=== PATIENT | male | born 1945 | race Caucasian/White ===

== ENCOUNTER 2017-01-02 06:04 | Inpatient (IN) | payer MEDICARE, BC ==
[2016-12-30 15:57] VITALS: BMI 34.9
[~2017-01-02] VITALS: Ht 167.6 cm; Wt 85.5 kg
[2017-01-02] VITALS (23 sets, daily range): BP systolic 119–151; BP diastolic 56–92; PULSE 72–84; RESP 16–22; Ht 167.6 cm; Wt 85.5 kg
[~2017-01-02 06:04] MED LIST: CARB1TAB46 PO; OMEG1CAP73 PO; PRAM0.755 PO; UBID100C24 PO; [UNRECOGNIZED DRUG - CODE] PO; [UNRECOGNIZED DRUG - CODE] PO
[2017-01-02] MEDS ORDERED: CEFAZOLIN 2 GM/50 ML (PMX) 50 ML IVPB ONE (07:30)
[2017-01-02] MEDS ORDERED: LACTATED RINGER'S 1,000 ML IV* SCH (07:30)
[2017-01-02] MEDS ORDERED: NEOSTIGMINE 3 MG/3 ML SYRINGE ONE (08:04)
[2017-01-02] MEDS ORDERED: PROPOFOL 20 ML ONE (08:04)
[2017-01-02] MEDS ORDERED: ROCURONIUM 50 MG INJ ONE (08:04)
[2017-01-02] MEDS ORDERED: GLYCOPYRROLATE 1 MG INJ ONE (08:04)
[2017-01-02] MEDS ORDERED: MIDAZOLAM 1 MG/ML 2 ML INJ ONE (08:05)
[2017-01-02] MEDS ORDERED: LIDOCAINE 2% (SDV) 5 ML INJ ONE (08:05)
[2017-01-02] MEDS ORDERED: FENTAnyl 50 MCG/ML VIAL ONE ×2 (08:05→11:17)
[2017-01-02] MEDS ORDERED: DOCU-159 PO (09:12)
[2017-01-02] MEDS ORDERED: TAMS0.4C2 PO (09:12)
[2017-01-02] MEDS ORDERED: THROMBIN 5000 UNIT VIAL ONE (09:26)
[2017-01-02] MEDS ORDERED: POLYMYXIN/BACITRACIN 1L IRRIG ONE (09:26)
[2017-01-02] MEDS ORDERED: BUPIVACAINE 0.25% (MPF) 10 ML 10 ML VIAL ONE (09:26)
[2017-01-02] MEDS ORDERED: GELATIN SIZE 100 SPONGE ONE (09:26)
--- NOTE | 2017-01-02 09:49 | HPN ---
Date/Time of Note Date/Time of Note DATE: 01/02/17 TIME: 09:49 Interval H&P Admission Note Pt. seen H&P reviewed: No system changes JAGJIT HENRIQUEZ MD Jan 02, 2017 09:49
[2017-01-02] MEDS ORDERED: DEXAMETHASONE 4 MG/ML 1 ML INJ ONE (10:18)
[2017-01-02] MEDS ORDERED: ONDANSETRON 4 MG INJ ONE (10:18)
[2017-01-02] MEDS ORDERED: hydrALAzine 20 MG INJ IV PRN (11:00)
[2017-01-02] MEDS ORDERED: FENTAnyl 50 MCG/ML VIAL IV PRN ×2 (11:00)
[2017-01-02] MEDS ORDERED: MEPERIDINE 25 MG INJ IV PRN (11:00)
[2017-01-02] MEDS ORDERED: ONDANSETRON 4 MG INJ IV PRN ×2 (11:00→13:30)
[2017-01-02] MEDS ORDERED: ATROPINE 1 MG/10 ML SYRINGE IV PRN (11:00)
[2017-01-02] MEDS ORDERED: HYDROmorphONE (0.2 MG/ML) 10ML SYG IV PRN ×3 (11:00)
[2017-01-02] MEDS ORDERED: LABETALOL HCL 20MG INJ IV PRN (11:00)
[2017-01-02] MEDS ORDERED: DIPHENHYDRAMINE 50 MG INJ IV PRN (11:00)
[2017-01-02] MEDS ORDERED: EPHEDrine SULFATE 50 MG/5 ML SYG IV PRN (11:00)
[2017-01-02] MEDS ORDERED: morphine (1 MG/ML) 10ML SYRINGE IV PRN ×3 (11:00)
[2017-01-02] MEDS ORDERED: MIDAZOLAM 1 MG/ML 2 ML INJ IV PRN (11:00)
[2017-01-02] MEDS ORDERED: OXYCODONE/ACETAMINOPHEN (5/325) TAB PO PRN ×2 (11:00)
[2017-01-02] MEDS ORDERED: EPHEDrine SULFATE 50 MG/5 ML SYG ONE (11:04)
[2017-01-02] MEDS ORDERED: FUROSEMIDE 20 MG INJ ONE (12:00)
--- NOTE | 2017-01-02 12:17 | RADRPT ---
PROCEDURE: XR Lumbar Spine one view. CLINICAL INDICATION: Low back pain. Intraoperative. TECHNIQUE: Prone portable cross-table lateral. COMPARISON: 09/23/2013. FINDINGS: For the purposes of this report, the last apparent true disc level is considered to be L5-S1. Based on this, the posterior needle markers are present at L4-5 and upper S1 levels. IMPRESSION: 1. Intraoperative imaging as described above. RPTAT: QQ .Partha Carpenter MD, MD Date Time Electronically viewed and signed by .Partha Carpenter MD, on 01/02/2017 12:16 .R/
--- NOTE | 2017-01-02 12:18 | RADRPT ---
PROCEDURE: XR Lumbar Spine one view. CLINICAL INDICATION: Low back pain. Intraoperative. TECHNIQUE: Prone portable cross-table lateral. COMPARISON: Prior study done earlier the same day. FINDINGS: For the purposes of this report, the last apparent true disc level is considered to be L5-S1. Based on this, the posterior surgical instrument is present overlying the L5-S1 level. IMPRESSION: 1. Intraoperative imaging as described above. RPTAT: QQ .Partha Carpenter MD, MD Date Time Electronically viewed and signed by .Partha Carpenter MD, on 01/02/2017 12:18 .R/
[2017-01-02] MEDS ORDERED: HYDROmorphONE 0.2 MG/ML PCA ONE (13:23)
--- NOTE | 2017-01-02 13:23 | OPPN ---
Date/Time of Note Date/Time of Note DATE: 01/02/17 TIME: 13:16 Operative/Procedure Note Pre-Operative Diagnosis Herniated disc L4-5 on the right Herniated disc L5-S1 on the right Post-Operative Diagnosis Same Procedure Redo right hemilaminotomy L4 Right hemilaminotomy L5 Microdiscectomy L4-5 on the right (redo) Microdiscectomy L5-S1 on the right Medial facetectomy and foraminotomy L4-5 and L5-S1 on the right Baxano foraminal decompression L4 on the right Revision of scar (10 cm) Lateral localizing lumbar radiographs (2) Intraoperative nerve monitoring (3-1/2 hours) Surgeon: JAGJIT HENRIQUEZ MD Seaweed Harvester: KAY HICKMAN Anesthesiologist: DEBRA REHMAN MD Findings At surgery a herniated disc at L4-5 and L5-S1 on the right was confirmed Blood Usage/Administration None Implants/Grafts: Not applicable Estimated blood loss: 50 - 100 ml's Drains 2 medium Hemovac drains employed Specimens Spinous process of L5 Herniated lumbar disc from L4-5 and L5-S1 on the right Complications: None Anesthesia type: general JAGJIT HENRIQUEZ MD Jan 02, 2017 13:22
[2017-01-02] MEDS ORDERED: DIAZEPAM 5 MG/ML SYG IM PRN (13:30)
[2017-01-02] MEDS ORDERED: TRIMETHOBENZAMIDE 100 MG/ML VIAL IM PRN (13:30)
[2017-01-02] MEDS ORDERED: DIAZEPAM 5 MG TAB PO PRN (13:30)
[2017-01-02] MEDS ORDERED: ZOLPIDEM 5 MG TAB PO PRN (13:30)
[2017-01-02] MEDS ORDERED: CEPASTAT LOZENGE MT PRN (13:30)
[2017-01-02] MEDS ORDERED: DIPHENHYDRAMINE 50 MG CAP PO PRN (13:30)
[2017-01-02] MEDS ORDERED: BETHANECHOL 25 MG TAB PO PRN (13:30)
[2017-01-02] MEDS ORDERED: ACETAMINOPHEN 325 MG TAB PO PRN (13:30)
[2017-01-02] MEDS ORDERED: PROCHLORPERAZINE 10 MG TAB PO PRN (13:30)
[2017-01-02] MEDS ORDERED: AL HYDROX/MG HYDROX/SIMETH 30 ML CUP PO PRN (13:30)
[2017-01-02] MEDS ORDERED: HYDROCODONE/APAP (5/325) TAB PO PRN (13:30)
[2017-01-02] MEDS ORDERED: NALOXONE (0.4 MG/ML) INJ IV PRN (13:30)
[2017-01-02] MEDS ORDERED: HYDROmorphONE 0.2 MG/ML PCA IV SCH (13:30)
[2017-01-02] MEDS ORDERED: NACL 0.9% 3 ML SYG IV SCH (13:30)
--- NOTE | 2017-01-02 13:57 | OPR ---
DATE OF OPERATION: 01/02/2017 PREOPERATIVE DIAGNOSES: 1. Recurrent disk herniation L4-L5 on the right. 2. Herniated disk, L5-S1 on the right. POSTOPERATIVE DIAGNOSES: 1. Recurrent disk herniation L4-L5 on the right. 2. Herniated disk, L5-S1 on the right. OPERATION/PROCEDURES: 1. Re-do right hemilaminotomy, L4. 2. Right hemilaminotomy L5. 3. Re-do microdiskectomy L4-L5 on the right. 4. Microdiskectomy, L5-S1 on the right. 5. Baxano transforaminal root decompression, L4 on the right. 6. Medial facetectomy and foraminotomy, L4-L5 and L5-S1 on the right. 7, Revision of scar (10 cm). 8. Lateral localized lumbar radiographs (2). 9. Intraoperative nerve monitoring (3-1/2 hours). SURGEON: Ryan Jacob MD TOURIST INFORMATION ASSISTANT: Vinita Aponte PA-C ANESTHESIA: General endotracheal. ANESTHESIOLOGIST: Dr. Johnson. ESTIMATED BLOOD LOSS: 50 mL; none replaced. DRAINS: Two medium Hemovac drains employed. COMPLICATIONS: None. PERTINENT HISTORY AND PHYSICAL: This is a 71-year-old male who has had moderately severe to severe back and right leg pain, which has been unrelieved by conservative management. He has undergone a n umber of diagnostic studies including an MRI of the lumbar spine, which demonstrated a recurrent dis k herniation at L4-L5 on the right, and a new herniation at L5-S1 on the right. There was marked fo raminal stenosis at L4-5 on the right. Treatment options were discussed with the patient. He elect ed to proceed with surgery. OPERATIVE FINDINGS AT SURGERY: Herniations at L4-L5 and L5-S1 on the right were confirmed. The [facility] intraoperative nerve monitoring revealed a decrease in the L4 potential on the right of 20%, t he L5 potential on the left of 20%, and on the right of 60%, the S1 potential on the right of 20%. These all returned to normal at the completion of the surgery. OPERATIVE PROCEDURE: With the patient in supine position after satisfactory induction of general en dotracheal anesthesia by Dr. Johnson, the patient was turned to the prone kneeling position on the [facility] frame. All pressure points were carefully padded. Back was prepped and draped in usual ster ile fashion. Athrombic pumps were applied to the legs below the knees to prevent venous stasis duri ng and after procedure. An indwelling Delgado catheter was also placed preoperatively to facilitate b ladder drainage during and after the procedure. Two spinal needles were placed next to what was felt to be the L5 spinous process, and lateral roent genogram was taken, which confirmed anatomic localization. A 10-cm incision then carried out midlin e from L3 to sacrum through skin and subcutaneous tissue to the deep fascia. Superficial retractors were placed, and hemostasis secured with electrocautery. Throughout the procedure, copious amounts of antibacterial irrigating solution were used to periodically irrigate the wound. The skin margins were infiltrate with 0.25% Marcaine without epinephrine for postoperative analgesia. The fascia was incised in midline with a hot knife, and a bilateral subperiosteal dissection carried out at L5. D eep retractors were placed, and deep hemostasis secured with electrocautery. Dissection was then ca rried superiorly to the L4-5 facets bilaterally, which were cleared of overlying soft tissue with a hot knife and a Lilly elevator. A right hemilaminotomy at L5 was then carried out using Leksell robel eur, Kerrison punches, and curettes. The spinous process was also removed in the process to facilit ate access to the canal. The S1 root was mobilized medially and protected with Camacho nerve root retractor using microdissection technique. This revealed a herniation of the L5-S1 disk on the righ t, extending out into the foramen. A 15 blade knife used to cut a rectangular window in the annulus and posterior longitudinal ligament. Multiple degenerative disk fragments were harvested with pit uitary rongeurs and sent to laboratory for pathologic study. Additional fragments were harvested us ing Lexie curettes. A thorough search of the floor of the canal was made with an arthroscopic pro be, and no additional fragments were encountered. The anesthesiologist was asked to perform a Valsa lva maneuver at 40 mmHg, and no spinal fluid leak was noted. A medial facetectomy and foraminotomy w as accomplished at L5-S1 using small hand osteotome, mallet, Kerrison punches and curettes. Attention was then turned to the L4-L5 level where the previous surgery was evident with scar. The scar was peeled off of the remnants of the lamina and facet joint at L4-5, and a medial facetectomy and foraminotomy accomplished at that level using small hand osteotome, mallet, Kerrison punches and curettes. The foraminotomy did not appear to adequately decompress the foramen distally, and after the diskectomy, a Baxano procedure was carried out as described below. The L5 root was mobilized m edially and protected with Camacho nerve root retractor using microdissection technique. This reve aled a herniation of the L4-5 disk. A 15 blade knife was used to cut a rectangular window in the __ ___ posterior longitudinal ligament, and multiple degenerative disk fragments were harvested with pi tuitary rongeurs and sent to the laboratory for pathologic study. Additional fragments were harvest ed using Lexie curettes. A thorough search of the floor of the canal was made with an arthroscopi c probe, and no additional fragments were encountered. The epidural hemostasis was secured with bip olar electrocautery on a low setting. At this point, as noted above, the L4 foramen appeared to be tight distally, and the Baxano instrume ntation was brought onto the field. The Ipsi probe was placed into the foramen, and the guidewire p assed in the usual fashion. The neuro probe was then inserted into the foramen and used to isolate the exiting L4 nerve root. With this having been accomplished, the 7.5-mm Baxano rasp was inserted into the foramen, and multiple reciprocations carried out to enlarge the posterior aspect of the for amen. With this having been accomplished, the instrumentation was withdrawn, and the foramen was th en flooded with 20 mL of irrigating solution. Hemostasis was secured with the bipolar electrocauter y on low setting. The anesthesiologist was asked to perform a final Valsalva maneuver throughout wh ich no spinal fluid leak was noted. The wound was then closed in layers over 2 medium Hemovac drain s, one below the fascia, one above the fascia, using #1 Stratafix sutures in deep paralumbar muscula ture and deep fascia of back, 2-0 Stratafix sutures in subcu tissue, and a 4-0 Vicryl subcuticular c osmetic closing suture on the skin. Dermabond and sterile compressive dressings were applied. Patient having tolerated procedure well, was then turned to supine position onto his bed and extubat ed by Dr. Johnson. He was transported to recovery room in satisfactory condition. At the conclusion of procedure, sponge, instrument, and needle counts were all correct. NEED FOR OCCUPATIONAL THERAPY CO DIRECTOR: During this spinal surgical procedure, my community program assistant was used to retrac t and protect the spinal nerves and dural sac. My community program assistant also employed the suction catheters to e vacuate blood from the surgical field to improve visualization of the neural structures. The assista nt was medically necessary to facilitate the completion of the surgery in a safe and expeditious man ner. State of [place] regulations, as well as hospital bylaws, preclude the use of non-licensed [facility] care personnel such as operating room technicians, to perform these functions. Throughout the procedure, neural monitoring was carried out by [facility] including EMG, SSEP, and MEP monitoring of the L3, L4, L5, and S1 nerve roots bilaterally along with spinal cord potentials. These were interpreted by a neurologist employed by [employer]. Dictated By: RYAN ELLIS/ANGIE Conf#: [id number] DID#: [id number] CC: THU MAYES DO;*End*
[2017-01-02] MEDS: CEFAZOLIN 1 GM/50 ML (PMX) 50 ML IVPB SCH ×2 (17:22→23:43)
[2017-01-02] MEDS: DEXTROSE 5%-0.45% NACL 1,000 ML IV SCH (17:24)
--- NOTE | 2017-01-02 19:28 | CONS ---
Date/Time of Note Date/Time of Note DATE: 01/02/17 TIME: 19:20 Consult Date/Type/Reason Admit Date/Time Jan 02, 2017 at 06:04 Initial Consult Date Subjective This patient reports 90 % resolution of his leg pain and only moderate lower back pain. No fever or chills. No nausea or emesis. The patient is thrilled to not have the burning pain that he had been feeling pre-operatively in his right leg. He already notes great improvement in his RLE strength. Objective Vital Signs Date Time Temp Pulse Resp B/P Pulse Ox O2 Delivery O2 Flow Rate FiO2 01/02/17 14:11 76 17 146/71 96 Nasal Cannula 2.0 01/02/17 13:14 98.0 Alert, oriented. Chest CTA Heart RRR no murmurs Abdomen- soft, no guarding. BS active. Extremities, moving all 4 extremities. No PTE. Strength 5/5 bilateral lower extremities Hemovac drain in place Results/Medications Medications Current Medications Dextrose/Sodium Chloride (D5-1/2ns) 1,000 ml @ 100 mls/hr Q10H IV Last administered on 01/02/17 17:24; Admin Dose 100 MLS/HR; Start 01/02/17 at 13:13 Acetaminophen/ Hydrocodone Bitart ([place] (5/325)) 1 tab Q4H PRN PO PAIN LEVEL 1 -5; Start 01/02/17 at 13:30; Status Future Hold Acetaminophen/ Hydrocodone Bitart 2 tab 2 tab Q4H PRN PO PAIN LEVEL 6-10; Start 01/02/17 at 13:30; Status Future Hold Cefazolin Sodium (Ancef 1 Gm/50 ml (Pmx)) 50 ml @ 100 mls/hr Q6 IVPB Last administered on 01/02/17 17:22; Admin Dose 100 MLS/HR; Start 01/02/17 at 18:00 ; Stop 01/03/17 at 12:29 Zolpidem Tartrate (Ambien) 5 mg HS PRN PO INSOMNIA; Start 01/02/17 at 13:30 Prochlorperazine (Compazine) 10 mg Q4H PRN PO NAUSEA AND/OR VOMITING; Start at 13:30 Trimethobenzamide HCl (Tigan) 200 mg Q4H PRN IM NAUSEA AND/OR VOMITING; Start 01/02/17 at 13:30 Ondansetron HCl (Zofran Inj) 4 mg Q6H PRN IV NAUSEA AND/OR VOMITING; Start at 13:30 Al Hydrox/Mg Hydrox/Simethicone (Mag-Al Plus) 15 ml Q4H PRN PO CONSTIPATION; Start 01/02/17 at 13:30 Docusate Sodium (Colace) 100 mg BID PO ; Start 01/03/17 at 09:00 Acetaminophen (Tylenol Tab) 650 mg Q4H PRN PO TEMP GREATER THAN 101F OR RAMIREZ; Start 01/02/17 at 13:30 Ascorbic Acid (Vitamin C) 1,000 mg BID PO ; Start 01/03/17 at 09:00 Ferrous Sulfate (Ferrous Sulfate (Ec)) 325 mg TID PO ; Start 01/03/17 at 09:00 Ranitidine HCl (Zantac) 150 mg BID PO ; Start 01/02/17 at 21:00 Diazepam (Valium) 5 mg Q4H PRN PO MUSCLE SPASMS Last administered on 01/02/17 15:04; Admin Dose 5 MG; Start 01/02/17 at 13:30 Diazepam (Valium) 5 mg Q4H PRN IM MUSCLE SPASMS; Start 01/02/17 at 13:30 Phenol (Cepastat Lozenge) 1 lozenge PRN PRN MT SORE THROAT Last administered on 01/02/17 17:23; Admin Dose 1 LOZENGE; Start 01/02/17 at 13:30 Bethanechol Chloride (Urecholine) 25 mg PRN PRN PO UNABLE TO VOID; Start at 13:30 Diphenhydramine HCl (Benadryl) 50 mg Q6H PRN PO PRURITUS; Start 01/02/17 at 13: 30 Hydromorphone HCl (Dilaudid [employer]JUST[employer]) Q4PCA IV Last administered on 01/02/17 13:38 ; Admin Dose 6 MG; Start 01/02/17 at 13:30 Naloxone HCl (Narcan) 0.2 mg Q2M PRN IV RR 8 BREATHS/MIN OR LESS; Start at 13:30 Assessment/Plan Additional Assessment/Plan S/P L4-5 and L5-S1 Microdiscectomy Right side Plan: As per Dr. Jacob's orders. If the patient is discharged on 01/03/2017, then he can resume his Parkinson's medications when he gets home. Otherwise, if we don't discharge the patient on , then Dr. Mayes will write orders for the patient's Mirapex ER 1.5 mg daily and for his Stalevo 200-50mg/ 200-200 mg one tablet Tid and for his Tamsulosin ER 0.4 mg one tablet daily orally. THU MAYES MD Jan 02, 2017 19:28
[2017-01-02] MEDS: RANITIDINE 150 MG TAB PO SCH (21:02)
[2017-01-03 00:52] VITALS: BP 128/66; RESP 19
[2017-01-03 05:20] LABS: HEMATOCRIT 38.4 % (42.0-52.0); HEMOGLOBIN 12.9 g/dl (14.0-18.0)
[2017-01-03] MEDS: DEXTROSE 5%-0.45% NACL 1,000 ML IV SCH ×2 (05:26→09:13)
[2017-01-03 05:36] LABS: POTASSIUM 3.8 mmol/L (3.5-5.1)
[2017-01-03 05:39] VITALS: BP 122/59; PULSE 64; RESP 18
[2017-01-03 05:39] LABS: CREATININE 0.84 mg/dl (0.61-1.24)
[2017-01-03 05:40] LABS: CALCIUM 8.3 mg/dl (8.4-10.2)
[2017-01-03] MEDS: CEFAZOLIN 1 GM/50 ML (PMX) 50 ML IVPB SCH ×2 (06:19→12:33)
--- NOTE | 2017-01-03 07:34 | PN ---
Date/Time of Note Date/Time of Note DATE: 01/03/17 TIME: 07:32 Assessment/Plan Lines/Catheters IV Catheter Type (from Nrs): Peripheral IV Delgado in Place (from Nrsg): Yes Subjective 24 Hr Interval Summary Patient is postop day #1 from lumbar decompression and redo discectomy. He has not been up ambulating it. Drain output was 30 cc overnight and this was removed. Incision is healing well. Vital signs are stable and hemoglobin is 12.9. Neurovascular structures are intact. Plan for today is to DC Delgado and PEARL HAND and progress ambulation. He may be discharged later today if he is cleared by physical therapy and internal medicine Exam/Review of Systems Vital Signs Vitals Vital Signs Date Time Temp Pulse Resp B/P Pulse Ox O2 Delivery O2 Flow Rate FiO2 01/03/17 05:43 18 01/03/17 05:39 98.2 64 122/59 95 Nasal Cannula 2.0 Intake and Output 01/02/17 01/02/17 01/03/17 15:00 23:00 07:00 Intake Total 2000 ml 950 ml 600 ml Output Total 225 ml 970 ml 530 ml Balance 1775 ml -20 ml 70 ml Results Result Diagram: 01/03/17 0445 01/03/17 0435 KAY HICKMAN Jan 03, 2017 07:33
[2017-01-03 07:58] VITALS: BP 142/66; RESP 18
[2017-01-03] MEDS ORDERED: BETHANECHOL 25 MG TAB PO PRN (08:00)
[2017-01-03] MEDS ORDERED: DOCUSATE SODIUM 100 MG CAP PO SCH (09:00)
[2017-01-03] MEDS: FERROUS SULFATE (EC) 325 MG TAB PO SCH ×2 (09:00→12:33)
[2017-01-03] MEDS ORDERED: ASCORBIC ACID 500 MG TAB PO SCH (09:00)
[2017-01-03] MEDS: RANITIDINE 150 MG TAB PO SCH (09:02)
[2017-01-03] MEDS: HYDROCODONE/APAP (5/325) TAB PO PRN ×2 (09:03→12:33)
[2017-01-03 11:18] LABS: ADD UMIC YES; URINE BILIRUBIN (Dip) NEGATIVE (NEGATIVE); URINE BLOOD (Dip) 2+ (NEGATIVE); URINE COLOR LT. YELLOW (YELLOW); URINE GLUCOSE (Dip) NEGATIVE (NEGATIVE); URINE KETONES (Dip) NEGATIVE (NEGATIVE); URINE LEUKOCYTE ESTERASE (Dip) NEGATIVE (NEGATIVE); URINE NITRITE (Dip) NEGATIVE (NEGATIVE); URINE TOTAL PROTEIN (Dip) NEGATIVE (NEGATIVE); URINE UROBILINOGEN (Dip) 0.2 E.U./dL (0.1-1.0)
[2017-01-03 12:02] LABS: MUCUS,URINE FEW; URIC ACID CRYSTALS,URINE FEW
--- NOTE | 2017-01-03 13:59 | CONS ---
Date/Time of Note Date/Time of Note DATE: 01/03/17 TIME: 13:51 Assessment/Plan Assessment/Plan Additional Assessment/Plan Post Op Day # 1 Microdiscectomy L4-5 and L5-S1 right side If independent with transfers , ready for discharge to home per Dr. Jacob late this afternoon. Pt. will f/u with Dr. Jacob in office in [address] Mayes if he cannot control his pain or for any other issues. Resume Parkinson 's meds when patient gets home later today. Consultation Date/Type/Reason Admit Date/Time Jan 02, 2017 at 06:04 24 HR Interval Summary Free Text/Dictation Pt has 3/10 lower back and right leg pain. No nausea or emesis. No SOB. He has been out of bed several times and is doing well with transfers. Exam/Review of Systems Vital Signs Vitals Vital Signs Date Time Temp Pulse Resp B/P Pulse Ox O2 Delivery O2 Flow Rate FiO2 01/03/17 07:58 98.4 69 18 142/66 94 01/03/17 05:39 Nasal Cannula 2.0 Intake and Output 01/02/17 01/02/17 01/03/17 15:00 23:00 07:00 Intake Total 2000 ml 950 ml 600 ml Output Total 225 ml 970 ml 530 ml Balance 1775 ml -20 ml 70 ml Exam Constitutional: alert, oriented Additional Comments Alert, oriented. Chest -CTA Heart RRR no murmurs Abdomen soft BS active Moving all 4 extremities. EHL 5/5, no PTE, hemovac drain out. Incision clean and dry on lumbar spine. Results Result Diagram: 01/03/17 0445 01/03/17 0435 Results 24 hrs Laboratory Tests Test 01/03/17 04:35 01/03/17 04:45 01/03/17 09:15 Anion Gap 14 Blood Urea Nitrogen 14 Calcium Level 8.3 L Carbon Dioxide Level 27 Chloride Level 101 Creatinine 0.84 Glucose Level 143 Potassium Level 3.8 Sodium Level 138 Hematocrit 38.4 L Hemoglobin 12.9 L Urine Bilirubin NEGATIVE Urine Clarity CLEAR Urine Color LT. YELLOW Urine Glucose NEGATIVE Urine Hemoglobin 2+ H Urine Ketones NEGATIVE Urine Leukocyte Esterase NEGATIVE Urine Microscopic RBC 2-5 Urine Microscopic WBC NONE SEEN Urine Mucus FEW Urine Nitrite NEGATIVE Urine Specific [place] 1.020 Urine Total Protein NEGATIVE Urine Uric Acid Crystals FEW Urine Urobilinogen 0.2 E.U./dL Urine pH 6.0 Medications Medications Current Medications Dextrose/Sodium Chloride (D5-1/2ns) 1,000 ml @ 100 mls/hr Q10H IV Last administered on 01/03/17 05:26; Admin Dose 100 MLS/HR; Start 01/02/17 at 13:13 Acetaminophen/ Hydrocodone Bitart ([place] (5/325)) 1 tab Q4H PRN PO PAIN LEVEL 1 -5 Last administered on 01/03/17 12:33; Admin Dose 1 TAB; Start 01/02/17 at 13: 30; Status Future hold Acetaminophen/ Hydrocodone Bitart ([place] (5/325)) 2 tab Q4H PRN PO PAIN LEVEL 6 -10; Start 01/02/17 at 13:30; Status Future hold Zolpidem Tartrate (Ambien) 5 mg HS PRN PO INSOMNIA; Start 01/02/17 at 13:30 Prochlorperazine (Compazine) 10 mg Q4H PRN PO NAUSEA AND/OR VOMITING; Start at 13:30 Trimethobenzamide HCl (Tigan) 200 mg Q4H PRN IM NAUSEA AND/OR VOMITING; Start 01/02/17 at 13:30 Ondansetron HCl (Zofran Inj) 4 mg Q6H PRN IV NAUSEA AND/OR VOMITING; Start at 13:30 Al Hydrox/Mg Hydrox/Simethicone (Mag-Al Plus) 15 ml Q4H PRN PO CONSTIPATION; Start 01/02/17 at 13:30 Docusate Sodium (Colace) 100 mg BID PO Last administered on 01/03/17 09:03; Admin Dose 100 MG; Start 01/03/17 at 09:00 Acetaminophen (Tylenol Tab) 650 mg Q4H PRN PO TEMP GREATER THAN 101F OR RAMIREZ; Start 01/02/17 at 13:30 Ascorbic Acid (Vitamin C) 1,000 mg BID PO Last administered on 01/03/17 09:02 ; Admin Dose 1,000 MG; Start 01/03/17 at 09:00 Ferrous Sulfate (Ferrous Sulfate (Ec)) 325 mg TID PO ; Start 01/03/17 at 09:00 Ranitidine HCl (Zantac) 150 mg BID PO Last administered on 01/03/17 09:02; Admin Dose 150 MG; Start 01/02/17 at 21:00 Diazepam (Valium) 5 mg Q4H PRN PO MUSCLE SPASMS Last administered on 01/02/17 15:04; Admin Dose 5 MG; Start 01/02/17 at 13:30 Diazepam (Valium) 5 mg Q4H PRN IM MUSCLE SPASMS; Start 01/02/17 at 13:30 Phenol (Cepastat Lozenge) 1 lozenge PRN PRN MT SORE THROAT Last administered on 01/02/17 17:23; Admin Dose 1 LOZENGE; Start 01/02/17 at 13:30 Bethanechol Chloride (Urecholine) 25 mg PRN PRN PO UNABLE TO VOID Last administered on 01/03/17 11:28; Admin Dose 25 MG; Start 01/02/17 at 13:30 Diphenhydramine HCl (Benadryl) 50 mg Q6H PRN PO PRURITUS; Start 01/02/17 at 13: 30 Naloxone HCl (Narcan) 0.2 mg Q2M PRN IV RR 8 BREATHS/MIN OR LESS; Start at 13:30 Bethanechol Chloride (Urecholine) 25 mg PRN PRN PO UNABLE TO VOID; Start at 08:00 THU MAYES MD Jan 03, 2017 13:58
== END 2017-01-03 16:00 | disposition home or self-care (01) | DRG 520 ==
LOC: REC 06:04 → MS1 14:24
PROVIDERS: ADMIT Orthopaedic Surgery; ATTEND Orthopaedic Surgery
PROC: 0SB20ZZ Excision of Lumbar Vertebral Disc, Open Approach (ICD-10-PCS; 2017-01-02)
PROC: 0SB40ZZ Excision of Lumbosacral Disc, Open Approach (ICD-10-PCS; 2017-01-02)
PROC: 01NB0ZZ Release Lumbar Nerve, Open Approach (ICD-10-PCS; principal; 2017-01-02 09:30)
DX: M51.26 Other intervertebral disc displacement, lumbar region (principal); G20 Parkinson's disease; I10 Essential (primary) hypertension; M51.27 Other intervertebral disc displacement, lumbosacral region; M48.06 Spinal stenosis, lumbar region; E78.5 Hyperlipidemia, unspecified; N40.0 Benign prostatic hyperplasia without lower urinary tract symptoms
CPT/HCPCS: 72020; 80048; 81001; 81003; 85014; 85018; 86850; 86900; 86901; 86920; 87086; 88304; 88311; 97116; 97162; 97530; J1940; J0690; J1100; J1170; J2250; J2405; J2710; J3010; J7042

== ENCOUNTER 2017-03-01 07:35 | Inpatient (IN) | payer MEDICARE, BC ==
[2017-02-28 14:04] LABS: ADD SCAN DIFF NO
[2017-02-28 14:24] LABS: BASOPHILS % 0.2 % (0.0-2.0); EOSINOPHILS # 0.2 10^3/ul (0.0-0.5); HEMATOCRIT 46.8 % (42.0-52.0); HEMOGLOBIN 15.8 g/dl (14.0-18.0); LYMPHOCYTES % 20.7 % (15.0-51.0); MEAN CORPUSCULAR HEMOGLOBIN 31.5 pg (29.0-33.0); MEAN CORPUSCULAR HGB CONC 33.8 g/dl (32.0-37.0); MEAN CORPUSCULAR VOLUME 93.4 fl (82.0-101.0); MONOCYTE # 0.7 10^3/ul (0.3-0.9); MONOCYTES % 6.7 % (0.0-11.0); NEUTROPHIL # 6.8 10^3/ul (1.6-7.5); PLATELET COUNT 265 10^3/UL (140-415); RED BLOOD COUNT 5.01 10^6/ul (4.70-6.10); RED CELL DISTRIBUTION WIDTH 12.2 % (11.5-14.5); WHITE BLOOD COUNT 9.7 10^3/ul (4.8-10.8)
[2017-02-28 14:58] VITALS: BMI 31.4
[2017-03-01] VITALS (31 sets, daily range): BP systolic 130–148; BP diastolic 62–80; PULSE 60–90; RESP 13–20; Ht 167.6 cm; Wt 89.0 kg
[~2017-03-01] VITALS: Ht 167.6 cm; Wt 89.0 kg
[~2017-03-01 07:35] MED LIST changes: +DOCU-159 PO; +SUCCINYLCHOLINE CHLORIDE 100 MG/5 ML SYG IV ONE; +TAMS0.4C2 PO
[2017-03-01] MEDS ORDERED: PRAM1.5T8 PO (08:26)
[2017-03-01] MEDS ORDERED: ALBU18HF INHALATION (08:27)
[2017-03-01] MEDS ORDERED: CARB1TAB13 PO (08:29)
[2017-03-01] MEDS ORDERED: OXYC-209 PO (08:30)
--- NOTE | 2017-03-01 09:02 | HPN ---
Date/Time of Note Date/Time of Note DATE: 03/01/17 TIME: 09:01 Interval H&P Admission Note Pt. seen H&P reviewed: No system changes JAGJIT HENRIQUEZ MD March 01, 2017 09:02
[2017-03-01] MEDS ORDERED: GELATIN SIZE 100 SPONGE ONE (09:14)
[2017-03-01] MEDS ORDERED: BUPIVACAINE 0.25% (MPF) 10 ML 10 ML VIAL ONE (09:14)
[2017-03-01] MEDS ORDERED: THROMBIN 5000 UNIT VIAL ONE (09:15)
[2017-03-01] MEDS ORDERED: POLYMYXIN/BACITRACIN 1L IRRIG ONE (09:15)
[2017-03-01] MEDS ORDERED: CEFAZOLIN 2 GM/50 ML (PMX) 50 ML IVPB ONE (09:17)
[2017-03-01] MEDS ORDERED: MIDAZOLAM 1 MG/ML 2 ML INJ ONE (09:41)
[2017-03-01] MEDS ORDERED: ROCURONIUM 50 MG INJ ONE (09:41)
[2017-03-01] MEDS ORDERED: PROPOFOL 100 ML ONE (09:41)
[2017-03-01] MEDS ORDERED: FENTAnyl 50 MCG/ML VIAL ONE (09:41)
[2017-03-01] MEDS ORDERED: LABETALOL HCL 20MG INJ ONE (09:51)
[2017-03-01] MEDS ORDERED: PHENYLephrine (100 MCG/ML) 5ML SYG ONE ×2 (10:01→10:49)
[2017-03-01] MEDS ORDERED: ACETAMINOPHEN 1000MG/100ML IV 100 ML ONE (10:49)
[2017-03-01] MEDS ORDERED: hydrALAzine 20 MG INJ ONE (11:09)
[2017-03-01] MEDS ORDERED: ONDANSETRON 4 MG INJ ONE (11:15)
[2017-03-01] MEDS ORDERED: DEXAMETHASONE 4 MG/ML 1 ML INJ ONE (11:15)
[2017-03-01] MEDS ORDERED: MEPERIDINE 25 MG INJ IV PRN (11:30)
[2017-03-01] MEDS ORDERED: EPHEDrine SULFATE 50 MG/5 ML SYG IV PRN (11:30)
[2017-03-01] MEDS ORDERED: FENTAnyl 50 MCG/ML VIAL IV PRN ×3 (11:30)
[2017-03-01] MEDS ORDERED: morphine (1 MG/ML) 10ML SYRINGE IV PRN ×3 (11:30)
[2017-03-01] MEDS ORDERED: ALBUMIN HUMAN 5% 250 ML IV PRN (11:30)
[2017-03-01] MEDS ORDERED: HYDROmorphONE (0.2 MG/ML) 10ML SYG IV PRN ×3 (11:30)
[2017-03-01] MEDS ORDERED: ONDANSETRON 4 MG INJ IV PRN ×2 (11:30→13:30)
[2017-03-01] MEDS ORDERED: LABETALOL HCL 20MG INJ IV PRN (11:30)
[2017-03-01] MEDS ORDERED: DIPHENHYDRAMINE 50 MG INJ IV PRN (11:30)
[2017-03-01] MEDS ORDERED: hydrALAzine 20 MG INJ IV PRN (11:30)
[2017-03-01] MEDS ORDERED: NEOSTIGMINE 3 MG/3 ML SYRINGE ONE (12:39)
[2017-03-01] MEDS ORDERED: GLYCOPYRROLATE 0.4 MG INJ ONE (12:39)
--- NOTE | 2017-03-01 13:03 | RADRPT ---
PROCEDURE: Intraoperative XR. CLINICAL INDICATION: Intraoperative radiograph during lumbar spine surgery. TECHNIQUE: Spot intraoperative lateral lumbar x-ray image was provided. The images were reviewed on a high-resolution PACS workstation. COMPARISON: None available FINDINGS: Spot intraoperative lateral lumbar view were provided during lumbar spine revision. The images demo nstrate metallic probe at the level of L5. IMPRESSION: 1. Spot intraoperative lateral lumbar view during lumbar spine region were provided. 2. Please see operative report of the same day for further information. RPTAT: DD .Scott Byrnes MD, MD Date Time Electronically viewed and signed by .Scott Byrnes MD, on 03/01/2017 13:03 .S/
--- NOTE | 2017-03-01 13:03 | RADRPT ---
PROCEDURE: Intraoperative XR. CLINICAL INDICATION: Intraoperative radiograph during lumbar spine surgery. TECHNIQUE: Spot intraoperative lateral lumbar x-ray image was provided. The images were reviewed on a high-resolution PACS workstation. COMPARISON: None available FINDINGS: Spot intraoperative lateral lumbar view were provided during lumbar spine surgery revision. The mazin ges demonstrate instrumentation at the level of free. IMPRESSION: 1. Spot intraoperative lateral lumbar view during lumbar spine revision were provided. 2. Please see operative report of the same day for further information. RPTAT: DD .Scott Byrnes MD, MD Date Time Electronically viewed and signed by .Scott Byrnes MD, MD on 03/01/2017 13:02 .S/
--- NOTE | 2017-03-01 13:18 | OPR ---
Date/Time of Note Date/Time of Note DATE: 03/01/17 TIME: 13:14 Operative Report Preoperative Diagnosis Recurrent disc herniation L4-5 on the right Postoperative Diagnosis Same Operation Performed Redo central decompressive laminectomy at L3 Redo central decompressive laminectomy at L4 Redo central decompressive laminectomy at L5 Redo microdiscectomy L4-5 on the right Revision of scar (14 cm) Lateral localizing lumbar radiographs (2) Intraoperative nerve monitoring (150 minutes) Surgeon: JAGJIT HENRIQUEZ MD cashier assistant: JAVIER JUAREZ MD Second Investigations Manager: CIRO HORTON Anesthesia: general Anesthesiologist: EDISON AGUILERA MD Estimated Blood Loss: 250 - 300 ml's Specimens Herniated disc L4-5 on the right Tubes/Drains 2 medium Hemovac drains employed Complications: None Complications None Pt Condition Post Procedure: stable Disposition: PACU Operative\Procedure Findings At surgery, a recurrent disc herniation at L4-5 on the right was identified. JAGJIT HENRIQUEZ MD March 01, 2017 13:18
[2017-03-01] MEDS ORDERED: BETHANECHOL 25 MG TAB PO PRN (13:30)
[2017-03-01] MEDS ORDERED: CEPASTAT LOZENGE MT PRN (13:30)
[2017-03-01] MEDS ORDERED: NACL 0.9% 3 ML SYG IV SCH (13:30)
[2017-03-01] MEDS ORDERED: AL HYDROX/MG HYDROX/SIMETH 30 ML CUP PO PRN (13:30)
[2017-03-01] MEDS ORDERED: DIPHENHYDRAMINE 50 MG CAP PO PRN (13:30)
[2017-03-01] MEDS ORDERED: HYDROmorphONE 0.2 MG/ML PCA IV SCH (13:30)
[2017-03-01] MEDS ORDERED: DIAZEPAM 5 MG/ML SYG IM PRN (13:30)
[2017-03-01] MEDS ORDERED: DIAZEPAM 5 MG TAB PO PRN (13:30)
[2017-03-01] MEDS ORDERED: NALOXONE (0.4 MG/ML) INJ IV PRN (13:30)
[2017-03-01] MEDS ORDERED: HYDROCODONE/APAP (5/325) TAB PO PRN (13:30)
[2017-03-01] MEDS ORDERED: PROCHLORPERAZINE 10 MG TAB PO PRN (13:30)
[2017-03-01] MEDS ORDERED: ZOLPIDEM 5 MG TAB PO PRN (13:30)
[2017-03-01] MEDS ORDERED: ACETAMINOPHEN 325 MG TAB PO PRN (13:30)
[2017-03-01] MEDS ORDERED: TRIMETHOBENZAMIDE 100 MG/ML VIAL IM PRN (13:30)
--- NOTE | 2017-03-01 14:26 | OPR ---
DATE OF OPERATION: 03/01/2017 PREOPERATIVE DIAGNOSIS: Recurrent disk herniation L4-5 on the right. POSTOPERATIVE DIAGNOSIS: Recurrent disk herniation L4-5 on the right. OPERATION PERFORMED: 1. Redo central decompressive laminectomy at L3. 2. Redo central decompressive laminectomy at L4. 3. Redo central decompressive laminectomy at L5. 4. Microdiskectomy, L4-5 on the right. 5. Medial facetectomy and foraminotomy, L3-4, L4-5, and L5-S1 on the right. 6. Revision of scar (14 cm). 7. Lateral localized lumbar radiographs (2). 8. Intraoperative nerve monitoring (2.5 hours). SURGEON: Ryan Jacob MD SHIPYARD PAINTER: Javier Pacheco MD SECOND SHIPYARD PAINTER: CHRISTEL Auguste ANESTHESIA: General endotracheal. ANESTHESIOLOGIST: Dr. Farias ESTIMATED BLOOD LOSS: 350 mL - none replaced. DRAINS: Two medium Hemovac drains employed. COMPLICATIONS: None. PERTINENT HISTORY AND PHYSICAL: This is a 71-year-old male with severe back and right leg pain whic h has been unrelieved by conservative management. He has a pertinent prior history of undergoing casimiro mbar multilevel laminectomy and microdiskectomy several months ago. Postoperative workup revealed a recurrent disk herniation versus subligamentous hematoma at L4-5 on the right with foraminal stenos is at L3-4, L4-5, and L5-S1 on the right. Treatment options were discussed with the patient, who el ected to proceed with surgery. OPERATIVE FINDINGS AT SURGERY: The patient had multilevel spondylosis with a recurrent disk herniat ion at L4-5 on the right. The large extruded disk fragment or subligamentous hematoma seen on the r ecent lumbar MRI scan was not specifically identified. The baseline intraoperative nerve monitoring revealed a decrease in the right L3 potential of 40%, the right L4 potential of 40%, the right L5 p otential of 40%, the left L5 potential of 20%, and the right S1 potential of 30%. These all returne d to normal at the completion of surgery. OPERATIVE PROCEDURE: With the patient in supine position after satisfactory induction of general en dotracheal anesthesia by Dr. Farias, the patient was turned to the prone kneeling position onto the [place] frame. All pressure points were carefully padded. The back was prepped and draped in usu al sterile fashion. Athrombic pumps were applied to the legs below the knees to prevent venous rachele is during and after procedure. An indwelling Delgado catheter was also placed preoperatively to facil itate bladder drainage during and after the procedure. A 14 cm incision was made through the previo us scar and extending up to the level of the L2 spinous process through skin and subcutaneous tissue to the deep fascia. Superficial retractors were placed and hemostasis secured with electrocautery. Throughout the procedure, copious amounts of antibacterial irrigating solution used to periodicall y irrigate the wound. The fascia was incised in midline with a hot knife and a bilateral subperiost eal dissection carried out at L2. Deep retractors were placed and deep hemostasis secured with elec trocautery. An intraoperative lateral x-ray was taken with a Carmella clamp on the process of L2, and this was confirmed on lateral x-ray. The dissection was then carried out through the scar to the L 3-L4, L4-L5, and L5-S1 facet joints bilaterally. The scar was cleared off of the posterior elements (residual lamina and facet joints) at L3-4, L4-5, and L5-S1 on the right. A medial facetectomy and foraminotomy at L3-4, L4-5, and L5-S1 on the right was then carried out using small hand osteotome, mallet, Kerrison punches, and curettes. The operating microscope was moved into place. At L4-5, t he L5 root was mobilized medially and protected with Bonnie'Seble nerve root retractor using microdissec tion technique. This revealed a small recurrent disk herniation at L4-5 on the right. A 15 blade k nife was used to cut a rectangular window in the anulus and posterior longitudinal ligament, and mul tiple degenerative disk fragments were harvested with pituitary rongeurs and sent to laboratory for pathologic study. Additional fragments were harvested using Lexie curettes. A thorough search of the floor and canal was made with an arthroscopic probe. No additional free fragments were encount ered. The epidural hemostasis was secured with bipolar electrocautery on low setting. The anesthes iologist was asked to perform a Valsalva maneuver at 40 mmHg, and no spinal fluid leakage was noted. The wound was then closed in layers over 2 medium Hemovac drains after thorough copious antibacter ial irrigating solution was used to irrigate the wound. The wound was closed over 2 medium Hemovac drains, one below the fascia and one above the fascia, using #1 Stratafix sutures on the deep paralu mbar musculature and deep fascia of back, 2-0 Stratafix sutures in subcu tissue, and a 4-0 Vicryl ramirez bcuticular cosmetic closing suture on the skin. Dermabond and sterile compressive dressings were ap plied. The patient, having tolerated the procedure well, was then turned to supine position onto [facility] bed and extubated by Dr. Farias. He was transported to recovery room in satisfactory condition. At the conclusion of the procedure, sponge, instrument, and needle counts were all correct. NEED FOR SPORTS INFORMATION DIRECTOR: During this spinal surgical procedure, my loan officer assistant was used to retrac t and protect the spinal nerves and dural sac. My loan officer assistant also employed the suction catheters to e vacuate blood from the surgical field to improve visualization of the neural structures. The assista nt was medically necessary to facilitate the completion of the surgery in a safe and expeditious man ner. State of [place] regulations, as well as hospital bylaws, preclude the use of non-licensed [facility] care personnel such as operating room technicians, to perform these functions. Throughout the procedure, neural monitoring was carried out by [employer] including EMG, SSEP, and MEP monitoring of the L3, L4, L5, and S1 nerve roots bilaterally along with spinal cord potentials. These were interpreted by neurologist employed by [employer]. Dictated By: RYAN JACOB MD TM/NTS Conf#: [id number] DID#: [id number] CC: THU MAYES DO; JAVIER PACHECO MD;*EndCC*
[2017-03-01 15:21] LABS: ADD UMIC YES; URINE BILIRUBIN (Dip) NEGATIVE (NEGATIVE); URINE BLOOD (Dip) 3+ (NEGATIVE); URINE COLOR YELLOW (YELLOW); URINE GLUCOSE (Dip) NEGATIVE (NEGATIVE); URINE KETONES (Dip) NEGATIVE (NEGATIVE); URINE LEUKOCYTE ESTERASE (Dip) NEGATIVE (NEGATIVE); URINE NITRITE (Dip) NEGATIVE (NEGATIVE); URINE TOTAL PROTEIN (Dip) NEGATIVE (NEGATIVE); URINE UROBILINOGEN (Dip) 0.2 E.U./dL (0.1-1.0)
[2017-03-01 15:53] LABS: URIC ACID CRYSTALS,URINE FEW
[2017-03-01] MEDS ORDERED: ALBUTEROL HFA 8 GM INHALER INH PRN (18:00)
--- NOTE | 2017-03-01 18:05 | PN ---
Date/Time of Note Date/Time of Note DATE: 03/01/17 TIME: 17:50 Assessment/Plan VTE Prophylaxis VTE Prophylaxis Intervention: SCD's Lines/Catheters IV Catheter Type (from Nrs): Peripheral IV Urinary Cath still in place: Yes Reason Cath still needed: other (indicate) (post operative) Assessment/Plan Chief Complaint/Hosp Course The patient is stable post re-do decompressive lumbar laminectomy L3-S1 and microdiscectomy L4-L5 by Dr. Jacob and Dr. Pacheco this morning. Problems: Assessment/Plan Continue current care. Restart Parkinson's meds, Carbidopa-Levidopa. Further post op care as per surgical team. Medicine to follow. Subjective 24 Hr Interval Summary Free Text/Dictation Mr. Olvera is a pleasant 71 y/o male with h/o Parkinson's disease, Psoriasis, HTN, BPH and HLD. He has a history of central decompressive laminectomy aat L3- 4 with microdiscectomy at L3-4 on the right on 09/23/2013. He status post re-do right hemilaminectomy at L4-L5 on 01/02/2017. He is today status post revision surgery on 03/01/2017 for spinal stenosis at L3-S1 and recurrent disc herniation at L4-5 on the right. The patient is comfortable in bed. Pain levels 4/10. Urine draining freely via urinary cath. HemoVac in place. RATER ASSOCIATE pump in place. O2 nasal canula in place. Constitutional: improved, no complaints Eyes: no complaints ENT: no complaints Respiratory: no complaints Cardiovascular: no complaints Gastrointestinal: no complaints Genitourinary: no complaints Musculoskeletal: back pain Skin: no complaints Neurologic: no complaints, other (tremor secondary to his Parkinson's) Endocrine: no complaints Lymphatic: no complaints Psychological: nl mood/affect, no complaints Immunologic: no complaints Exam/Review of Systems Vital Signs Vitals Vital Signs Date Time Temp Pulse Resp B/P Pulse Ox O2 Delivery O2 Flow Rate FiO2 03/01/17 17:27 16 03/01/17 17:19 Nasal Cannula 2.0 03/01/17 16:30 68 136/73 94 03/01/17 13:10 97.8 Exam Constitutional: alert, oriented, well developed, No distress Psych: nl mood/affect, no complaints Head: atraumatic, normocephalic Eyes: EOMI, PERRL, nl conjunctiva, nl lids, nl sclera ENMT: nl external ears & nose, nl lips & teeth, nl nasal mucosa & septum Neck: non-tender, supple, No bruits, No jvd Respiratory: clear to auscultation, normal air movement, No congested cough, No crackles/rales, No wheezing Cardiovascular: nl pulses, regular rate and rhythm, No bruits, No edema, No murmurs/extra sounds Gastrointestinal: bowel sounds, nl liver, spleen, non-tender, soft Genitourinary - Male: other (draining urine frrely via cath.) Musculoskeletal: nl extremities to inspection, range of motion (able to move b/ l extremity, 4/5 EHL b/l) Extremities: normal pulses, No calf tenderness, No pitting pedal edema, No tenderness Neurological: nl mental status, No numbness Results Result Diagram: 02/28/17 1400 Results 24 hrs Laboratory Tests Test 03/01/17 13:00 Urine Color YELLOW Urine Clarity SLIGHTLY CLOUDY Urine pH 5.5 Urine Specific [place] 1.025 Urine Ketones NEGATIVE Urine Nitrite NEGATIVE Urine Bilirubin NEGATIVE Urine Urobilinogen 0.2 E.U./dL Urine Leukocyte Esterase NEGATIVE Urine Microscopic RBC 10-25 Urine Microscopic WBC 0-2 Urine Uric Acid Crystals FEW Urine Hemoglobin 3+ H Urine Glucose NEGATIVE Urine Total Protein NEGATIVE Medications Medications Current Medications Dextrose/Sodium Chloride (D5-1/2ns) 1,000 ml @ 100 mls/hr Q10H IV ; Start 03/01 at 13:08 Acetaminophen/ Hydrocodone Bitart ([place] (5/325)) 1 tab Q4H PRN PO PAIN LEVEL 1 -5; Start 03/01/17 at 13:30; Status Future Hold Acetaminophen/ Hydrocodone Bitart 2 tab 2 tab Q4H PRN PO PAIN LEVEL 6-10; Start 03/01/17 at 13:30; Status Future Hold Cefazolin Sodium (Ancef 1 Gm/50 ml (Pmx)) 50 ml @ 100 mls/hr Q6 IVPB ; Start at 18:00; Stop 03/02/17 at 12:29 Zolpidem Tartrate (Ambien) 5 mg HS PRN PO INSOMNIA; Start 03/01/17 at 13:30 Prochlorperazine (Compazine) 10 mg Q4H PRN PO NAUSEA AND/OR VOMITING; Start 08/08 at 13:30 Trimethobenzamide HCl (Tigan) 200 mg Q4H PRN IM NAUSEA AND/OR VOMITING; Start 03/01/17 at 13:30 Ondansetron HCl (Zofran Inj) 4 mg Q6H PRN IV NAUSEA AND/OR VOMITING; Start 08/08 at 13:30 Al Hydrox/Mg Hydrox/Simethicone (Mag-Al Plus) 15 ml Q4H PRN PO CONSTIPATION; Start 03/01/17 at 13:30 Docusate Sodium (Colace) 100 mg BID PO ; Start 03/02/17 at 09:00 Acetaminophen (Tylenol Tab) 650 mg Q4H PRN PO TEMP GREATER THAN 101F OR RAMIREZ; Start 03/01/17 at 13:30 Ascorbic Acid (Vitamin C) 1,000 mg BID PO ; Start 03/02/17 at 09:00 Ferrous Sulfate (Ferrous Sulfate (Ec)) 325 mg TID PO ; Start 03/02/17 at 09:00 Ranitidine HCl (Zantac) 150 mg BID PO ; Start 03/01/17 at 21:00 Diazepam (Valium) 5 mg Q4H PRN PO MUSCLE SPASMS; Start 03/01/17 at 13:30 Diazepam (Valium) 5 mg Q4H PRN IM MUSCLE SPASMS; Start 03/01/17 at 13:30 Phenol (Cepastat Lozenge) 1 lozenge PRN PRN MT SORE THROAT; Start 03/01/17 at 13:30 Bethanechol Chloride (Urecholine) 25 mg PRN PRN PO UNABLE TO VOID; Start at 13:30 Diphenhydramine HCl (Benadryl) 50 mg Q6H PRN PO PRURITUS; Start 03/01/17 at 13: 30 Hydromorphone HCl (Dilaudid RATER ASSOCIATE) Q4PCA IV Last administered on 03/01/17t 13:31 ; Admin Dose 6 MG; Start 03/01/17 at 13:30 Naloxone HCl (Narcan) 0.2 mg Q2M PRN IV RR 8 BREATHS/MIN OR LESS; Start at 13:30 Albuterol (Ventolin Hfa) 2 puff Q6H PRN INH WHEEZING AND SOB; Start 03/01/17 at 18:00; Status UNV Pramipexole (Mirapex) 1.5 mg DAILY PO ; Start 03/02/17 at 09:00; Status UNV Tamsulosin HCl (Flomax) 0.4 mg DAILY PO ; Start 03/02/17 at 09:00; Status UNV Miscellaneous Information 200 tab TID PO ; Start 03/01/17 at 21:00; Status UNV BRAYAN RUGGIERO March 01, 2017 18:00
[2017-03-01] MEDS: CEFAZOLIN 1 GM/50 ML (PMX) 50 ML IVPB SCH ×2 (18:28→23:32)
[2017-03-01] MEDS: DEXTROSE 5%-0.45% NACL 1,000 ML IV SCH ×2 (18:28→23:08)
[2017-03-01] MEDS ORDERED: ALBUTEROL 18 GM INHALER INH PRN (18:30)
[2017-03-01] MEDS: RANITIDINE 150 MG TAB PO SCH (20:44)
[2017-03-01] MEDS: ENTACAPONE 200 MG TAB PO SCH (20:44)
[2017-03-01] MEDS: CARBIDOPA/LEVODOPA (25/100) TAB PO SCH (20:45)
[2017-03-02 05:33] LABS: HEMATOCRIT 38.1 % (42.0-52.0); HEMOGLOBIN 12.9 g/dl (14.0-18.0)
[2017-03-02] MEDS: CEFAZOLIN 1 GM/50 ML (PMX) 50 ML IVPB SCH ×2 (05:35→11:57)
[2017-03-02 06:07] LABS: CALCIUM 8.4 mg/dl (8.4-10.2); CREATININE 0.78 mg/dl (0.61-1.24); POTASSIUM 4.1 mmol/L (3.5-5.1)
[2017-03-02] MEDS: DEXTROSE 5%-0.45% NACL 1,000 ML IV SCH ×2 (06:28→06:43)
[2017-03-02 07:23] VITALS: BP 136/65; RESP 18
--- NOTE | 2017-03-02 07:26 | PN ---
Date/Time of Note Date/Time of Note DATE: 03/02/17 TIME: 07:25 Assessment/Plan Lines/Catheters IV Catheter Type (from Nrs): Saline Lock Delgado in Place (from Nrs): Yes Subjective 24 Hr Interval Summary Patient is postop day #1 from multilevel lumbar decompression and a microdiscectomy. He is doing well, he has not been up ambulating yet. Neurovascular structures are intact. Vital signs are stable. Hemoglobin today is 12.9. Hemovac drain postoperatively yesterday was 80 cc and overnight was 10cc. Plan for today's progress ambulation. Possible discharge later today or tomorrow pending progress. Exam/Review of Systems Vital Signs Vitals Vital Signs Date Time Temp Pulse Resp B/P Pulse Ox O2 Delivery O2 Flow Rate FiO2 03/02/17 05:10 18 03/01/17 23:28 98.2 75 130/72 98 03/01/17 19:54 Room Air 03/01/17 18:30 2.0 Intake and Output 03/01/17 03/01/17 03/02/17 15:00 23:00 07:00 Intake Total 2000 ml 50 ml 1900 ml Output Total 525 ml 1410 ml Balance 1475 ml 50 ml 490 ml Results Result Diagram: 03/02/17 0440 03/02/17 0440 KAY HICKMAN March 02, 2017 07:26
[2017-03-02] MEDS ORDERED: BETHANECHOL 25 MG TAB PO PRN (08:00)
[2017-03-02] MEDS: ASCORBIC ACID 500 MG TAB PO SCH ×2 (09:15→20:23)
[2017-03-02] MEDS: ENTACAPONE 200 MG TAB PO SCH ×3 (09:15→20:21)
[2017-03-02] MEDS: RANITIDINE 150 MG TAB PO SCH ×2 (09:18→20:23)
[2017-03-02] MEDS: TAMSULOSIN (SR) 0.4 MG CAP PO SCH (09:18)
[2017-03-02] MEDS: FERROUS SULFATE (EC) 325 MG TAB PO SCH ×3 (09:18→20:23)
[2017-03-02] MEDS: CARBIDOPA/LEVODOPA (25/100) TAB PO SCH ×3 (09:18→20:23)
[2017-03-02] MEDS: DOCUSATE SODIUM 100 MG CAP PO SCH ×2 (09:19→21:27)
[2017-03-02] MEDS: PRAMIPEXOLE 1 MG TAB PO SCH (09:19)
--- NOTE | 2017-03-02 10:26 | OPPN ---
Date/Time of Note Date/Time of Note DATE: 03/02/17 TIME: 10:26 Post-Anesthesia Notes Post-Anesthesia Note Last documented vital signs Vital Signs Date Time Temp Pulse Resp B/P Pulse Ox O2 Delivery O2 Flow Rate FiO2 03/02/17 07:23 98.1 71 18 136/65 95 03/01/17 19:54 Room Air 03/01/17 18:30 2.0 Activity: WNL Respiratory function: WNL Cardiovascular function: WNL Mental status: Baseline Pain reasonably controlled: Yes Hydration appropriate: Yes Nausea/Vomiting absent: Yes EDISON AGUILERA MD March 02, 2017 10:26
[2017-03-02] MEDS: HYDROCODONE/APAP (5/325) TAB PO PRN ×2 (10:39→16:01)
[2017-03-02 14:05] LABS: ADD UMIC YES; URINE BILIRUBIN (Dip) NEGATIVE (NEGATIVE); URINE BLOOD (Dip) 1+ (NEGATIVE); URINE COLOR LT. YELLOW (YELLOW); URINE GLUCOSE (Dip) NEGATIVE (NEGATIVE); URINE KETONES (Dip) NEGATIVE (NEGATIVE); URINE LEUKOCYTE ESTERASE (Dip) NEGATIVE (NEGATIVE); URINE NITRITE (Dip) NEGATIVE (NEGATIVE); URINE TOTAL PROTEIN (Dip) NEGATIVE (NEGATIVE); URINE UROBILINOGEN (Dip) 0.2 E.U./dL (0.1-1.0)
[2017-03-02 14:16] LABS: URINE RBCS 0-2 /HPF (0)
--- NOTE | 2017-03-02 14:27 | PN ---
Date/Time of Note Date/Time of Note DATE: 03/02/17 TIME: 14:20 Assessment/Plan VTE Prophylaxis VTE Prophylaxis Intervention: ambulation, SCD's Lines/Catheters IV [facility]from [facility] Saline Lock Urinary Cath still in place: No Assessment/Plan Chief Complaint/Hosp Course The patient is stable post re-do decompressive lumbar laminectomy L3-S1 and microdiscectomy L4-L5 by Dr. Jacob and Dr. Pacheco. Post- Op day #1. Problems: Assessment/Plan Progressing well. Continue current care. Continue PT. Discharge per surgical team. Medicine to follow. Subjective 24 Hr Interval Summary Free Text/Dictation Mr. Olvera is a pleasant 71 y/o male with h/o Parkinson's disease, Psoriasis, HTN, BPH and HLD. He has a history of central decompressive laminectomy aat L3- 4 with microdiscectomy at L3-4 on the right on 09/23/2013. He status post re-do right hemilaminectomy at L4-L5 on 01/02/2017. He is today status post revision surgery on 03/01/2017 for spinal stenosis at L3-S1 and recurrent disc herniation at L4-5 on the right. Post-op day #1. The patient is comfortable in bed. Pain level remains at 4/10. No longer on MEDIA MANAGER pump. Urinary cath has been removed and the patient has been able to urinate freely. HemoVac has been removed this morning by surgery team. The patient had PT come by, but did not feel too stable or independent. Looking forward to further therapy. No BM yet. Constitutional: improved, no complaints Eyes: no complaints ENT: no complaints Respiratory: no complaints Cardiovascular: no complaints Gastrointestinal: no complaints Genitourinary: no complaints Musculoskeletal: neck pain Skin: no complaints Neurologic: no complaints Endocrine: no complaints Lymphatic: no complaints Psychological: nl mood/affect, no complaints Immunologic: no complaints Exam/Review of Systems Vital Signs Vitals Vital Signs Date Time Temp Pulse Resp B/P Pulse Ox O2 Delivery O2 Flow Rate FiO2 03/02/17 10:40 16 03/02/17 07:23 98.1 71 136/65 95 03/01/17 19:54 Room Air 03/01/17 18:30 2.0 Intake and Output 03/01/17 03/01/17 03/02/17 15:00 23:00 07:00 Intake Total 2000 ml 50 ml 1900 ml Output Total 525 ml 1410 ml Balance 1475 ml 50 ml 490 ml Exam Constitutional: alert, oriented, well developed Psych: nl mood/affect, no complaints Head: atraumatic, normocephalic Eyes: EOMI, PERRL, nl conjunctiva, nl lids, nl sclera ENMT: nl external ears & nose, nl lips & teeth, nl nasal mucosa & septum Neck: non-tender, supple Respiratory: clear to auscultation, normal air movement Cardiovascular: nl pulses, regular rate and rhythm Gastrointestinal: bowel sounds, nl liver, spleen, non-tender, soft, No rebound or guarding, No tender Musculoskeletal: nl extremities to inspection, No swelling Neurological: GENERAL DOC II-XII intact, nl mental status, nl speech, nl strength, other (Parkinsonian tremor noted.) Skin: rash or lesions (nothing new, Psoriasis noted) Results Result Diagram: 03/02/17 04403/02/17 044 Results 24 hrs Laboratory Tests Test 03/02/17 04:40 03/02/17 10:09 Hemoglobin 12.9 L Hematocrit 38.1 L Sodium Level 133 L Potassium Level 4.1 Chloride Level 102 Carbon Dioxide Level 30 Anion Gap 5 L Blood Urea Nitrogen 11 Creatinine 0.78 Glucose Level 160 Calcium Level 8.4 Urine Color LT. YELLOW Urine Clarity CLEAR Urine pH 6.0 Urine Specific [place] <=1.005 L Urine Ketones NEGATIVE Urine Nitrite NEGATIVE Urine Bilirubin NEGATIVE Urine Urobilinogen 0.2 E.U./dL Urine Leukocyte Esterase NEGATIVE Urine Microscopic RBC 0-2 Urine Microscopic WBC 2-5 Urine Hemoglobin 1+ H Urine Glucose NEGATIVE Urine Total Protein NEGATIVE Medications Medications Current Medications Dextrose/Sodium Chloride (D5-1/2ns) 1,000 ml @ 100 mls/hr Q10H IV Last administered on 03/02/17 06:43; Admin Dose 100 MLS/HR; Start 03/01/17 at 13:08 Acetaminophen/ Hydrocodone Bitart ([place] (5/325)) 1 tab Q4H PRN PO PAIN LEVEL 1 -5; Start 03/01/17 at 13:30; Status Future hold Acetaminophen/ Hydrocodone Bitart ([place] (5/325)) 2 tab Q4H PRN PO PAIN LEVEL 6 -10 Last administered on 03/02/17 10:39; Admin Dose 2 TAB; Start 03/01/17 at 13 :30; Status Future hold Zolpidem Tartrate (Ambien) 5 mg HS PRN PO INSOMNIA; Start 03/01/17 at 13:30 Prochlorperazine (Compazine) 10 mg Q4H PRN PO NAUSEA AND/OR VOMITING; Start 08/08 at 13:30 Trimethobenzamide HCl (Tigan) 200 mg Q4H PRN IM NAUSEA AND/OR VOMITING; Start 03/01/17 at 13:30 Ondansetron HCl (Zofran Inj) 4 mg Q6H PRN IV NAUSEA AND/OR VOMITING; Start 08/08 at 13:30 Al Hydrox/Mg Hydrox/Simethicone (Mag-Al Plus) 15 ml Q4H PRN PO CONSTIPATION; Start 03/01/17 at 13:30 Docusate Sodium (Colace) 100 mg BID PO Last administered on 03/02/17 09:19; Admin Dose 100 MG; Start 03/02/17 at 09:00 Acetaminophen (Tylenol Tab) 650 mg Q4H PRN PO TEMP GREATER THAN 101F OR RAMIREZ; Start 03/01/17 at 13:30 Ascorbic Acid (Vitamin C) 1,000 mg BID PO Last administered on 03/02/17 09:15 ; Admin Dose 1,000 MG; Start 03/02/17 at 09:00 Ferrous Sulfate (Ferrous Sulfate (Ec)) 325 mg TID PO Last administered on 12:41; Admin Dose 325 MG; Start 03/02/17 at 09:00 Ranitidine HCl (Zantac) 150 mg BID PO Last administered on 03/02/17 09:18; Admin Dose 150 MG; Start 03/01/17 at 21:00 Diazepam (Valium) 5 mg Q4H PRN PO MUSCLE SPASMS; Start 03/01/17 at 13:30 Diazepam (Valium) 5 mg Q4H PRN IM MUSCLE SPASMS; Start 03/01/17 at 13:30 Phenol (Cepastat Lozenge) 1 lozenge PRN PRN MT SORE THROAT; Start 03/01/17 at 13:30 Bethanechol Chloride (Urecholine) 25 mg PRN PRN PO UNABLE TO VOID Last administered on 03/02/17 10:39; Admin Dose 25 MG; Start 03/01/17 at 13:30 Diphenhydramine HCl (Benadryl) 50 mg Q6H PRN PO PRURITUS; Start 03/01/17 at 13: 30 Naloxone HCl (Narcan) 0.2 mg Q2M PRN IV RR 8 BREATHS/MIN OR LESS; Start at 13:30 Pramipexole (Mirapex) 1.5 mg DAILY PO Last administered on 03/02/17 09:19; Admin Dose 1.5 MG; Start 03/02/17 at 09:00 Tamsulosin HCl (Flomax) 0.4 mg DAILY PO Last administered on 03/02/17 09:18; Admin Dose 0.4 MG; Start 03/02/17 at 09:00 Carbidopa/Levodopa (Sinemet (25/ 100)) 0.5 tab TID PO Last administered on 03/02 12:41; Admin Dose 0.5 TAB; Start 03/01/17 at 21:00 Albuterol (Ventolin Hfa) 2 puff Q6H PRN INH WHEEZING AND SOB; Start 03/01/17 at 18:30 Entacapone (Comtan) 200 mg TID PO Last administered on 03/02/17 12:41; Admin Dose 200 MG; Start 03/01/17 at 21:00 BRAYAN RUGGIERO March 02, 2017 14:27
[2017-03-02 19:48] VITALS: BP 102/54; RESP 20
--- NOTE | 2017-03-03 07:58 | PN ---
Date/Time of Note Date/Time of Note DATE: 03/03/17 TIME: 07:56 Assessment/Plan Lines/Catheters IV Catheter Type (from Nrs): Saline Lock Delgado in Place (from Nrs): No Subjective 24 Hr Interval Summary Patient is postop day #2 from lumbar decompression and discectomy. He has been up ambulating and notes improvement of his preoperative symptoms. Vital signs are stable. He would like to be discharged today after he is cleared by physical therapy and internal medicine. Discharge instructions reviewed with patient. Exam/Review of Systems Vital Signs Vitals Vital Signs Date Time Temp Pulse Resp B/P Pulse Ox O2 Delivery O2 Flow Rate FiO2 03/02/17 19:48 98.6 68 20 102/54 98 03/01/17 19:54 Room Air 03/01/17 18:30 2.0 Intake and Output 03/02/17 03/02/17 03/03/17 15:00 23:00 07:00 Intake Total 50 ml 2620 ml 600 ml Output Total 1900 ml 700 ml Balance 50 ml 720 ml -100 ml Results Result Diagram: 03/02/17 0440 03/02/17 0440 KAY HICKMAN March 03, 2017 07:58
[2017-03-03 08:29] VITALS: BP 136/67; RESP 18
[2017-03-03] MEDS: ASCORBIC ACID 500 MG TAB PO SCH (08:50)
[2017-03-03] MEDS: ENTACAPONE 200 MG TAB PO SCH ×2 (08:51→13:58)
[2017-03-03] MEDS: DOCUSATE SODIUM 100 MG CAP PO SCH (08:51)
[2017-03-03] MEDS: PRAMIPEXOLE 1 MG TAB PO SCH (08:51)
[2017-03-03] MEDS: CARBIDOPA/LEVODOPA (25/100) TAB PO SCH ×2 (08:52→13:58)
[2017-03-03] MEDS: TAMSULOSIN (SR) 0.4 MG CAP PO SCH (08:52)
[2017-03-03] MEDS: FERROUS SULFATE (EC) 325 MG TAB PO SCH ×2 (08:52→13:58)
[2017-03-03] MEDS: RANITIDINE 150 MG TAB PO SCH (08:52)
--- NOTE | 2017-03-03 13:41 | PN ---
Date/Time of Note Date/Time of Note DATE: 03/03/17 TIME: 13:36 Assessment/Plan VTE Prophylaxis VTE Prophylaxis Intervention: ambulation Lines/Catheters IV [facility]ter Type [facility]from [facility] Urinary Cath still in place: No Assessment/Plan Chief Complaint/Hosp Course The patient is stable post re-do decompressive lumbar laminectomy L3-S1 and microdiscectomy L4-L5 by Dr. Jacob and Dr. Pacheco. Post- Op day #2. Problems: Assessment/Plan The patient is doing very well. Ok for discharge from IM point of view. Continue outpatient meds. Outpatient PT as per surgical service. Medicine signing off. Subjective 24 Hr Interval Summary Free Text/Dictation Mr. Olvera is a pleasant 71 y/o male with h/o Parkinson's disease, Psoriasis, HTN, BPH and HLD. He has a history of central decompressive laminectomy aat L3- 4 with microdiscectomy at L3-4 on the right on 09/23/2013. He status post re-do right hemilaminectomy at L4-L5 on 01/02/2017. He is today status post revision surgery on 03/01/2017 for spinal stenosis at L3-S1 and recurrent disc herniation at L4-5 on the right. Post-op day #2. The patient is comfortable in chair. Pain level remains at 2/10. Off of [employer] pump , Urinary cath and HemoVac since yesterday. Urinating and having BM freely. The patient has been seen by PT and is able to ambulate with a walker and climb stairs independently. Constitutional: improved, no complaints Eyes: no complaints ENT: no complaints Respiratory: no complaints Cardiovascular: no complaints Gastrointestinal: no complaints Genitourinary: no complaints Musculoskeletal: back pain Skin: no complaints Neurologic: no complaints Endocrine: no complaints Lymphatic: no complaints Psychological: nl mood/affect, no complaints Immunologic: no complaints Exam/Review of Systems Vital Signs Vitals Vital Signs Date Time Temp Pulse Resp B/P Pulse Ox O2 Delivery O2 Flow Rate FiO2 03/03/17 08:29 98.2 75 18 136/67 93 03/01/17 19:54 Room Air 03/01/17 18:30 2.0 Intake and Output 03/02/17 03/02/17 03/03/17 15:00 23:00 07:00 Intake Total 50 ml 2620 ml 600 ml Output Total 1900 ml 700 ml Balance 50 ml 720 ml -100 ml Exam Constitutional: alert, oriented, well developed Psych: nl mood/affect, no complaints Head: atraumatic, normocephalic Eyes: EOMI, PERRL, nl conjunctiva, nl lids, nl sclera ENMT: nl external ears & nose, nl lips & teeth, nl nasal mucosa & septum Neck: non-tender, supple Respiratory: clear to auscultation, normal air movement Cardiovascular: nl pulses, regular rate and rhythm Gastrointestinal: nl liver, spleen, non-tender, soft Musculoskeletal: nl extremities to inspection, nl gait and stance Extremities: normal pulses Neurological: SUSTAINABLE DEVELOPMENT POLICY ANALYST II-XII intact, DTR's symmetric, nl mental status, nl speech, other (Parkinsons tremor), No numbness Skin: nl turgor, No rash or lesions Lymph: nl lymph nodes Results Result Diagram: 03/02/1743903/02/17 044 Medications Medications Current Medications Acetaminophen/ Hydrocodone Bitart ([place] (5/325)) 1 tab Q4H PRN PO PAIN LEVEL 1 -5; Start 03/01/17 at 13:30; Status Future hold Acetaminophen/ Hydrocodone Bitart ([place] (5/325)) 2 tab Q4H PRN PO PAIN LEVEL 6 -10 Last administered on 03/02/17 16:01; Admin Dose 2 TAB; Start 03/01/17 at 13 :30; Status Future hold Zolpidem Tartrate (Ambien) 5 mg HS PRN PO INSOMNIA; Start 03/01/17 at 13:30 Prochlorperazine (Compazine) 10 mg Q4H PRN PO NAUSEA AND/OR VOMITING; Start 08/08 at 13:30 Trimethobenzamide HCl (Tigan) 200 mg Q4H PRN IM NAUSEA AND/OR VOMITING; Start 03/01/17 at 13:30 Ondansetron HCl (Zofran Inj) 4 mg Q6H PRN IV NAUSEA AND/OR VOMITING; Start 08/08 at 13:30 Al Hydrox/Mg Hydrox/Simethicone (Mag-Al Plus) 15 ml Q4H PRN PO CONSTIPATION; Start 03/01/17 at 13:30 Docusate Sodium (Colace) 100 mg BID PO Last administered on 03/03/17 08:51; Admin Dose 100 MG; Start 03/02/17 at 09:00 Acetaminophen (Tylenol Tab) 650 mg Q4H PRN PO TEMP GREATER THAN 101F OR RAMIREZ; Start 03/01/17 at 13:30 Ascorbic Acid (Vitamin C) 1,000 mg BID PO Last administered on 03/03/17 08:50 ; Admin Dose 1,000 MG; Start 03/02/17 at 09:00 Ferrous Sulfate (Ferrous Sulfate (Ec)) 325 mg TID PO Last administered on 08:52; Admin Dose 325 MG; Start 03/02/17 at 09:00 Ranitidine HCl (Zantac) 150 mg BID PO Last administered on 03/03/17 08:52; Admin Dose 150 MG; Start 03/01/17 at 21:00 Diazepam (Valium) 5 mg Q4H PRN PO MUSCLE SPASMS Last administered on 03/02/17 16:01; Admin Dose 5 MG; Start 03/01/17 at 13:30 Diazepam (Valium) 5 mg Q4H PRN IM MUSCLE SPASMS; Start 03/01/17 at 13:30 Phenol (Cepastat Lozenge) 1 lozenge PRN PRN MT SORE THROAT Last administered on 03/02/17 21:27; Admin Dose 1 LOZENGE; Start 03/01/17 at 13:30 Bethanechol Chloride (Urecholine) 25 mg PRN PRN PO UNABLE TO VOID Last administered on 03/02/17 10:39; Admin Dose 25 MG; Start 03/01/17 at 13:30 Diphenhydramine HCl (Benadryl) 50 mg Q6H PRN PO PRURITUS; Start 03/01/17 at 13: 30 Naloxone HCl (Narcan) 0.2 mg Q2M PRN IV RR 8 BREATHS/MIN OR LESS; Start at 13:30 Pramipexole (Mirapex) 1.5 mg DAILY PO Last administered on 03/03/17 08:51; Admin Dose 1.5 MG; Start 03/02/17 at 09:00 Tamsulosin HCl (Flomax) 0.4 mg DAILY PO Last administered on 03/03/17 08:52; Admin Dose 0.4 MG; Start 03/02/17 at 09:00 Carbidopa/Levodopa (Sinemet (25/ 100)) 0.5 tab TID PO Last administered on 03/03 08:52; Admin Dose 0.5 TAB; Start 03/01/17 at 21:00 Albuterol (Ventolin Hfa) 2 puff Q6H PRN INH WHEEZING AND SOB; Start 03/01/17 at 18:30 Entacapone (Comtan) 200 mg TID PO Last administered on 03/03/17 08:51; Admin Dose 200 MG; Start 03/01/17 at 21:00 BRAYAN RUGGIERO March 03, 2017 13:41
== END 2017-03-03 14:17 | disposition home or self-care (01) | DRG 520 ==
LOC: REC 07:35 → MS1 14:36
PROVIDERS: ADMIT Orthopaedic Surgery; ATTEND Orthopaedic Surgery
PROC: 01NB0ZZ Release Lumbar Nerve, Open Approach (ICD-10-PCS; 2017-03-01)
PROC: 4A11X4G Monitoring of Peripheral Nervous Electrical Activity, Intraoperative, External Approach (ICD-10-PCS; 2017-03-01)
PROC: 0SB20ZZ Excision of Lumbar Vertebral Disc, Open Approach (ICD-10-PCS; principal; 2017-03-01 10:00)
DX: M51.26 Other intervertebral disc displacement, lumbar region (principal); G20 Parkinson's disease; I10 Essential (primary) hypertension; M48.06 Spinal stenosis, lumbar region; M48.07 Spinal stenosis, lumbosacral region; M51.36 Other intervertebral disc degeneration, lumbar region; N40.0 Benign prostatic hyperplasia without lower urinary tract symptoms
CPT/HCPCS: 72020; 80048; 81001; 81003; 85014; 85018; 85025; 86850; 86900; 86901; 86920; 87086; 88304; 97116; 97162; 97530; J0131; J0330; J0360; J0690; J1100; J1170; J2250; J2370; J2405; J2710; J3010; J7042

== ENCOUNTER 2017-03-24 18:24 | Inpatient (IN) | payer MEDICARE, BC ==
[~2017-03-24] VITALS: Ht 167.6 cm; Wt 90.8 kg
[~2017-03-24 18:24] MED LIST changes: -AMLO2.5T78 PO; -APIX2.5T PO; -APIX5TAB PO
[2017-03-24 20:03] VITALS: BP 146/70; RESP 20
[2017-03-24] MEDS ORDERED: ZOLPIDEM 5 MG TAB PO PRN (20:30)
[2017-03-24] MEDS ORDERED: WARFARIN 10 MG TAB PO ONE (20:30)
[2017-03-24] MEDS ORDERED: NACL 0.9% 3 ML SYG IV SCH (20:30)
[2017-03-24] MEDS ORDERED: ACETAMINOPHEN 325 MG TAB PO PRN (20:30)
[2017-03-24] MEDS ORDERED: HEPARIN 1000 UNITS/ML 10 ML INJ IV ONE (20:30)
[2017-03-24] MEDS ORDERED: HYDROCODONE/APAP (5/325) TAB PO PRN (20:30)
[2017-03-24] MEDS ORDERED: HEPARIN 1000 UNITS/ML 10 ML INJ IV PRN ×2 (20:30)
[2017-03-24 21:15] VITALS: Ht 167.6 cm; Wt 90.8 kg
[2017-03-24 21:22] LABS: ADD SCAN DIFF NO
[2017-03-24 21:25] LABS: RED CELL DISTRIBUTION WIDTH 12.4 % (11.5-14.5)
[2017-03-24 21:27] LABS: BASOPHIL # 0.1 10^3/ul (0.0-0.1); BASOPHILS % 0.5 % (0.0-2.0); EOSINOPHILS # 0.3 10^3/ul (0.0-0.5); EOSINOPHILS % 3.3 % (0.0-7.0); HEMATOCRIT 40.8 % (42.0-52.0); LYMPHOCYTES % 21.9 % (15.0-51.0); MEAN CORPUSCULAR HEMOGLOBIN 32.6 pg (29.0-33.0); MEAN CORPUSCULAR HGB CONC 34.3 g/dl (32.0-37.0); MEAN CORPUSCULAR VOLUME 94.9 fl (82.0-101.0); MEAN PLATELET VOLUME 9.1 fl (7.4-10.4); MONOCYTE # 0.7 10^3/ul (0.3-0.9); MONOCYTES % 7.1 % (0.0-11.0); NEUTROPHIL # 6.1 10^3/ul (1.6-7.5); NEUTROPHILS % 66.8 % (39.0-77.0); PLATELET COUNT 275 10^3/UL (140-415); WHITE BLOOD COUNT 9.1 10^3/ul (4.8-10.8)
[2017-03-24] MEDS ORDERED: ACETAMINOPHEN 500 MG TAB PO PRN (21:30)
[2017-03-24 21:42] LABS: INR 0.98
[2017-03-24 21:43] LABS: PARTIAL THROMBOPLASTIN TIME 27.4 Sec (25.0-35.0)
[2017-03-24 21:55] LABS: ALBUMIN 4.5 g/dl (3.3-4.9); ALBUMIN/GLOBULIN RATIO 1.87; BILIRUBIN,INDIRECT 0.1 mg/dl (0-1.1); BILIRUBIN,TOTAL 0.1 mg/dl (0.2-1.3); CREATININE 0.86 mg/dl (0.61-1.24); POTASSIUM 4.1 mmol/L (3.5-5.1); TOTAL PROTEIN 6.9 g/dl (6.1-8.1)
[2017-03-24] MEDS: TAMSULOSIN (SR) 0.4 MG CAP PO SCH (22:00)
[2017-03-24] MEDS: DEXTROSE 5%-0.45% NACL 1,000 ML IV SCH (22:48)
[2017-03-24] MEDS: CARBIDOPA/LEVODOPA (25/100) TAB PO SCH (23:59)
[2017-03-24] MEDS: ENTACAPONE 200 MG TAB PO SCH (23:59)
[2017-03-25] MEDS: HEPARIN 25000 UNITS/250 ML 250 ML IV SCH ×2 (00:07→17:15)
[2017-03-25 05:33] LABS: INR 1.05; PROTIME 13.7 Sec (12.2-14.2); PT RATIO 1.1
[2017-03-25] MEDS ORDERED: SOD CHLORIDE 0.9% 100 ML ONE (07:58)
[2017-03-25] MEDS ORDERED: IOHEXOL 100 ML ONE (07:58)
[2017-03-25 08:21] VITALS: BP 142/70; RESP 22
[2017-03-25] MEDS: CARBIDOPA/LEVODOPA (25/100) TAB PO SCH ×3 (08:56→21:20)
[2017-03-25] MEDS: ENTACAPONE 200 MG TAB PO SCH ×3 (08:56→21:20)
[2017-03-25] MEDS: PRAMIPEXOLE 0.25 MG TAB PO SCH (08:58)
--- NOTE | 2017-03-25 09:02 | RADRPT ---
PROCEDURE: CTA Chest. CLINICAL INDICATION: Chest pain TECHNIQUE: The study was performed utilizing a multidetector CT scanner. Direct spiral 1 mm axial sections were obtained from the thoracic inlet to the upper abdomen with the use of 100 cc of Omnipa que 350 nonionic intravenous contrast material and reformatted at 3 mm. Coronal and sagittal reforma tions were obtained. 3-D reconstructions were also obtained. The images were reviewed on a PACS wor kstation. One or more of the following dose reduction techniques were used: - Automated exposure control. - Adjustment of the mA and/or kV according to patient size. Use of iterative reconstruction technique. DLP 686.9 mGycm CTDIvol 7.0, 63.4, and 17.4 mGy COMPARISON: No prior studies are available for comparison. FINDINGS: Multiple filling defects are seen extending into the pulmonary arteries of the right upper lobe, rig ht middle lobe, and right lower lobe. No left-sided filling defects are present. Aortic and oliveira ry artery atherosclerotic plaque and calcification are present with no evidence of dissection. There is prominent plaque seen within the aorta and the ascending aorta is borderline aneurysmal enlarged measuring up to 4.1 cm. There is no cardiomegaly. There is no lung consolidation, pleural effusion, or pneumothorax. There is trace subpleural scarrin g present. There is no suspicious nodule or mass. The airways are patent. There are no enlarged med iastinal or axillary lymph nodes. There is a fecal filled colon partially visualized in the upper abdomen. Multiple calcifications ar e seen in the spleen. There is otherwise no acute upper abdominal abnormality. Degenerative change s are seen in the lumbar spine with no evidence of acute osseous abnormality. IMPRESSION: Multiple right-sided pulmonary emboli are present. There is no aortic dissection. Prominent aortic atherosclerotic plaque is visible. There is ascending aortic aneurysmal enlargement No acute pulmonary process. There is mild subpleural scarring. Fecal filled colon. A call report was made to the nurse Gabriela at 03/25/2017 9:00:49 AM RPTAT: AA .George Lopes MD, MD Date Time Electronically viewed and signed by .George Lopes MD, MD on 03/25/2017 09:01 .Lori
--- NOTE | 2017-03-25 09:05 | HP ---
DATE OF ADMISSION: 03/24/2017 CHIEF COMPLAINT: Swelling and pain, right calf, secondary to acute onset of deep vein thrombophlebitis. 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 Beginning about 3 days ago the swelling became persistent and was not going down in size. The patient noted some minimal pain and some slight warmth today, being Monday03/24/2017, and elected to call me on the phone and come in to be seen in our office. The patient also noted some swelling in his right foot and a little numbness in his right foot as well. The patient has a substantial history of spine surgery. Most recently he underwent a re-do decompressive lumbar laminectomy performed on 03/01/[address] Jacob and Dr. Pacheco at [facility]. The patient had no perioperative complications and was discharged without any signs of deep vein thrombosis. The lumbar laminectomy was performed at L3 through S1, with a microdiskectomy performed on the right side at L4-5. The patient also has a prior history of central decompressive laminectomy at L3- L4, with microdiskectomy at L3-4 on the right side on 09/23/2013. He then got very good results for several months, with no pain, and then gradually his pain returned. The patient then had to undergo a re-do right hemilaminectomy at L4- L5 under the care of Dr. Jacob at [facility] on 2016. The patient had significant postoperative issues, with severe pain in his lower back and pain radiation into his right leg. That is the reason why he underwent the re-do surgical revision on 03/01/2017. There was also evidence of a seroma or hematoma that had developed postoperatively following the 01/02/2017 surgery. The patient was noted to have spinal stenosis at L3-S1 and recurrent disk herniation at L4-L5 on the right side, which prompted the re- do surgery on 03/01/[address] Jacob and Dr. Pacheco. The patient had no postoperative complications until he developed this episode of deep vein thrombosis. The patient was seen in my office on 03/24/2017 at approximately 1:00 p.m. We requested a stat ultrasound of his right lower extremity, looking at the venous system. This was performed at [facility] and Dr. Randhawa did speak to the radiologist following the conclusion of that diagnostic procedure. There was evidence of an acute deep vein thrombosis of his right lower extremity. The ultrasound report did reveal that this was a fairly extensive DVT involving the common femoral, femoral and popliteal veins. The patient at this time is being hospitalized at [facility] and will need IV heparin anticoagulation, along with oral Coumadin, to bridge him in the interim period of time. I have also spoken with Dr. Jacob and informed him of the postoperative complication. In addition, I elected to call Dr. Fernandez in vascular surgical subspecialty consultation. I spoke with Dr. Fernandez after 10:00 p.m. on Monday night, 03/24/2017. Dr. Fernandez indicated that in this clinical setting, the patient most likely will need a filter put in to prevent any pulmonary embolism, and in addition, he may be considered for a thrombectomy as the best course of action in this clinical setting. In addition, the patient should have a hypercoagulable workup by a regional environmental manager to make sure there are not any secondary reasons for the patient developing this degree of clot in his right lower extremity. The patient presented for preoperative medical clearance on 02/25/2017 prior to his repeat spine surgery being done. PAST MEDICAL HISTORY: Remarkable for Parkinson's disease, history of psoriasis, hypertension, benign prostatic hypertrophy. The patient denied signs or symptoms of any acute infection such as fever, chills, nausea, vomiting, cough, shortness of breath, abdominal pain, dysuria or diarrhea. PAST ORTHOPEDIC AND SURGICAL HISTORY: Are summarized in the medical note that I wrote on 03/15/2017. At that time, the patient was having significant lower back pain which radiated from his right hip down into his right thigh. The pain had been present for the better part of the past year. The pain varied from a 9 on a scale of 1 to 10 as of 02/13/2017. He indicated the pain was awakening him from his sleep and he had to get up and move around to loosen up in order to tolerate the pain. He stated that he felt like scar tissue was breaking up in his spine. The patient complained of feeling pain radiation into his right buttock, down to about the level of his right knee. At that time the pain did not go below the right knee. He was not having any numbness or tingling of the right or left lower extremities. The patient did go to see Dr. Dutch Heard, orthopedic hip subspecialist, at [facility] on 11/29/2016. At that time he received a cortisone injection to his right hip, which gave him 2 days of benefit. The orthopedic hip specialist did not think that arthroscopic surgery or replacement of the patient's right hip would alleviate his pain. Dr. Heard felt that the patient's lower back pain was multifactorial and primarily coming from the lumbar spine. He did suggest that an EMG nerve conduction study get done and then follow up with pain management. The patient did undergo his second spine surgery with Dr. Jacob, as noted above, on 01/02/2017. He did get excellent pain relief from the second surgery for about 2 to 3 weeks and then the pain returned. Dr. Jacob did a postoperative lumbar spine MRI following that second surgery and the findings supported the evidence of another disk herniation on the right side at L4-5, along with a collection of either seroma or hematoma. The patient did go to see Dr. Pacheco in neurosurgical second opinion. Dr. Pacheco agreed with Dr. Jacob that the third surgery needed to be performed. The patient also had seen Dr. Tyrese Corona of pain management, who reviewed the patient's MRI with the patient, and felt that the disk herniation at L4-5 on the right side might be his pain generator. Over the last several months the patient's pain has been terribly interfering with his life and his ability to carry out independent activities of daily living. He was beside himself with pain and did not know what to do. He had been seen by pain management at [facility], who provided him with several injections, most of which had not been beneficial. He actually saw a neurosurgeon through [facility], who did not think that additional spine surgery was going to benefit him. The patient has been through Lidoderm patches, Lyrica, Percocet and nonsteroidals, all of which failed to alleviate his pain. Prior to the second surgery and third surgery being performed he was taking Percocet 10/325 mg every 6-8 hours to try and control his pain. The patient is under the care of Dr. Glo Vizcaino at [facility] neurology department for his Parkinson's disease. He is taking carbidopa/levodopa 3 times a day for control of his Parkinson's disease. In addition to everything documented above, the patient has been through at least 6 different epidural injections. He has been seen by Dr. Hamilton, Dr. Corona and also Dr. Anguiano at [facility] pain center. His pain was so excruciating that he was having difficulty walking and getting up from a chair. ALLERGIES: NO KNOWN ALLERGIES TO ANY MEDICATIONS. CURRENT MEDICATIONS: Include: 1. Tamsulosin ER extended release 0.4 mg, 1 daily. 2. Mirapex ER 2.25 mg, 1 daily. 3. Coenzyme Q 10-200, 1 daily. 4. Ultravate cream for his psoriasis on a p.r.n. basis, 0.05%. 5. Stalevo 200/50/200 for his Parkinson's disease. He takes 1 tablet 3 times a day. PAST SURGICAL HISTORY: He has an inguinal hernia repair performed. The patient has had 3 spine surgeries performed, as documented in the above history. The first history was back on 09/23/2013, and that was a decompressive laminectomy at L3-4 with microdiskectomy at L3-4 on the right side. Then he underwent a re-do right hemilaminectomy at L4-L5 on 01/02/2017. Then finally the patient underwent a re-do decompressive lumbar laminectomy with microdiskectomy at L4-5 on the right side. The lumbar laminectomy was performed at L3 through S1 on 03/01/2017. SOCIAL HISTORY: There is a family history of mental illness and depression. Mother age 76 from a Lymphoma. Father has . Had a history of vascular disease and CABG. SOCIAL HISTORY: He is right-hand dominant. He is currently . He is a former smoker. He drinks 2 alcoholic beverages per week. He does drink caffeinated coffee, 3 cups a day. He does not abuse alcohol or any illicit drug usage. REVIEW OF SYSTEMS: HEENT EVALUATION: He denies chronic sinus infections, chronic headaches, blurring or doubling of vision. No loss of hearing, no loss of taste of foods, no tinnitus, no epistaxis. RESPIRATORY: Denies any chronic cough, chronic congestion. No shortness of breath, dyspnea, orthopnea, PND or wheezing. CARDIAC: No chest pain, no claudication. He is having swelling of the right ankle and right calf, as documented above from the DVT, but he does not chronically suffer from those types of disorders. He does have a history of essential hypertension. GASTROINTESTINAL: No abdominal pain, constipation, diarrhea, nausea or vomiting. No history of gallbladder disease. No history of blood in the stool. GENITOURINARY: He does have a history of nocturia, urinary urgency and frequency. He does have an enlarged prostate and he does get seen by the urologist. He is on tamsulosin extended release 0.4 mg daily for his prostate enlargement. ENDOCRINE: No history of recent weight gain, weight loss or food dyscrasias. No history of diabetes or thyroid disorders. NEUROLOGIC: He does have the history of Parkinson's disease and is under the care of the neurologist at [facility], as documented above. He does have some slight decreased sensation in his right foot and calf right now, presumptively from the swelling from the DVT. He does not chronically suffer from any seizure disorders or motor abnormalities, other than that related to his spine disk disease. SKIN: The patient does have a history of psoriasis, as documented above. HEMATOLOGICAL: No history of easy bruising, easy bleeding, anemia or any blood disorders. PHYSICAL EXAMINATION: GENERAL: The patient's physical exam reveals an alert, oriented male, really not in any acute distress, other than concern over the swelling of the right lower extremity. VITAL SIGNS: Blood pressure 130/70, pulse 80, respirations 16, temperature 98.6. Height 5 foot 6 inches tall, weight 198 pounds, BMI of 31.96. HEENT EVALUATION: He is normocephalic. He is bald, with having shaved his head. The patient's tympanic membranes were normal. There was no bulging retraction of tympanic membranes. Hearing was normal. The posterior pharynx was normal. There was no erythema or ecchymosis. The patient's eyes: Pupils are equally reactive to light and accommodation. Extraocular motions intact. Funduscopic was benign. CHEST: Clear to auscultation. No rales, rhonchi or wheezing. HEART: Showed a regular rate and rhythm. No S3, S4 or murmur noted. ABDOMEN: Soft. Bowel sounds within normal limits. No visceromegaly. No rigidity, guarding, or rebound tenderness noted. GENITALIA: The patient is circumcised. No masses noted in the scrotum. Testicles are normal. No hernia is noted. NEUROLOGIC: He is oriented to time, place and person. His motor, sensory and speech were all normal. The patient does have a non-intention tremor secondary to his Parkinson's disease, which is pretty well controlled at this time. MUSCULOSKELETAL: He has a healed scar on his lumbar spine from the previous surgery. The patient's straight leg raise test is negative to 70 degrees bilaterally. There is some lower back pain elicited, but no radicular pain into the legs. His sensation is intact in the lower extremities. Brackets test is negative. EHL is 5/5 bilaterally. The primary attention was paid to the patient's right lower extremity. His right calf is 16 1/2 inches, his left calf at greatest circumference is 15 inches. The patient does have a positive Homans sign of the right lower extremity. Pedal pulses are fully palpable. There is minimal swelling of the right foot compared to the left. The patient's gait is slightly abnormal, so he is favoring the right lower extremity when he ambulates. DIAGNOSES: Include the followin. Acute vein thrombosis of the right lower extremity. 2. The patient is status post re-do decompressive lumbar laminectomy L3 through S1, with microdiskectomy on the right side at L4-5 on 03/01/2017. 3. The patient has a history of Parkinson's disease. 4. Essential hypertension. 5. History of hyperlipidemia. 6. Psoriasis. TREATMENT PLAN: The patient will be hospitalized at this time and immediately placed on heparin, using the hospital's DVT protocol. Will also start him on Coumadin for oral anticoagulation. Due to the fact that the clot is extending above the knee into the femoral and common femoral veins, I have elected to call Dr. Fernandez in vascular surgical consultation. I spoke with him on Monday evening, 03/24/2017. He indicated the patient most likely will need a filter implanted and possibly a thrombectomy performed of the veins of his right lower extremity. He will see the patient on 03/25/2017, and make that final determination. Since the patient developed the blood clot in the perioperative or postoperative period, it would be important to make sure that this patient does not have an underlying hypercoagulable state. I will have one of the hematologists at [facility] see the patient and perform that workup. Just to make sure that the patient has not thrown any clots to his lung, we will get a CT angiogram on 03/25/2017. Dictated By: THU HAMILTON/ANGIE Conf#: [id number] DID#: [id number]
--- NOTE | 2017-03-25 10:14 | CONS ---
Date/Time of Note Date/Time of Note DATE: 03/25/17 TIME: 10:03 Assessment/Plan Assessment/Plan Additional Assessment/Plan Pt has been active after the recent surgery but less than he had been. This is the first episode of thromboses and there is no family history to suggest thrombophilia. I will check various parameters both to decide upon how long to treat him and to advise other family members if there is a congenital mutation, which I do not suspect. If no surgery is planned, then I would consider switching him to either Eliquis or Xarelto. Consultations from vascular surgery and pulmonary are pending. However he appears comfortable presently. O2 sat 97%. Consultation Date/Type/Reason Admit Date/Time Mar 24, 2017 at 18:24 Date of Consultation: Mar 25, 2017 Type of Consultation: Hematology Reason for Consultation DVT and PE Referring Provider: THU MAYES MD Hx of Present Illness 71 yo man with lumbar back surgery about three weeks ago and who now is hospitalized for right DVT and pulmonary emboli. He is currently on heparin and Coumadin. There are plans for assessment by vascular surgery and pulmonary medicine pending. Presently he feels well and is not dyspneic or in pain. I am asked to assess for risk factors. negative for dyspnea, tachycardia. Mild right leg swelling. Past Medical History Medical History: high cholesterol, hypertension, other (psoriasis, Parkinsonism ) Past Surgical History Past Surgical Hx: other (spinal surgeries) Family History Significant Family History: no pertinent family hx (negative for thrombotic events or frequent mmiscarriages) Social History Alcohol Use: rarely Smoking Status: Former smoker Exam/Review of Systems Vital Signs Vitals Vital Signs Date Time Temp Pulse Resp B/P Pulse Ox O2 Delivery O2 Flow Rate FiO2 03/25/17 08:21 98.1 60 22 142/70 97 Intake and Output 03/24/17 03/24/17 03/25/17 15:00 23:00 07:00 Intake Total 1110 ml Output Total 450 ml Balance 660 ml Exam Constitutional: alert, oriented Psych: no complaints Head: normocephalic Eyes: nl conjunctiva ENMT: nl external ears & nose Neck: supple Respiratory: clear to auscultation Cardiovascular: regular rate and rhythm Gastrointestinal: nl liver, spleen, non-tender, soft Extremities: other (1+ right pedal edema) Results Result Diagram: 03/24/17211403/24/172114 Results 24 hrs Laboratory Tests Test 03/24/17 21:15 03/25/17 04:36 White Blood Count 9.1 Red Blood Count 4.30 L Hemoglobin 14.0 Hematocrit 40.8 L Mean Corpuscular Volume 94.9 Mean Corpuscular Hemoglobin 32.6 Mean Corpuscular Hemoglobin Concent 34.3 Red Cell Distribution Width 12.4 Platelet Count 275 Mean Platelet Volume 9.1 Neutrophils % 66.8 Lymphocytes % 21.9 Monocytes % 7.1 Eosinophils % 3.3 Basophils % 0.5 Nucleated Red Blood Cells % 0.0 Neutrophils # 6.1 Lymphocytes # 2.0 Monocytes # 0.7 Eosinophils # 0.3 Basophils # 0.1 Nucleated Red Blood Cells # 0.0 Prothrombin Time 13.0 13.7 Prothrombin Time Ratio 1.0 1.1 INR International Normalized Ratio 0.98 1.05 Activated Partial Thromboplast Time 27.4 157.0 *H Sodium Level 143 Potassium Level 4.1 Chloride Level 108 Carbon Dioxide Level 28 Anion Gap 11 Blood Urea Nitrogen 24 H Creatinine 0.86 Glucose Level 101 Calcium Level 9.0 Total Bilirubin 0.1 L Direct Bilirubin 0.00 Indirect Bilirubin 0.1 Aspartate Amino Transf (AST/SGOT) 17 Alanine Aminotransferase (ALT/SGPT) 27 Alkaline Phosphatase 88 Total Protein 6.9 Albumin 4.5 Globulin 2.40 Albumin/Globulin Ratio 1.87 Medications Medications Current Medications Dextrose/Sodium Chloride (D5-1/2ns) 1,000 ml @ 40 mls/hr Q24H IV Last administered on 03/24/17 22:48; Admin Dose 40 MLS/HR; Start 03/24/17 at 21:00 Acetaminophen/ Hydrocodone Bitart ([place] (5/325)) 1 tab Q6H PRN PO MODERATE PAIN LEVEL 4-6; Start 03/24/17 at 20:30 Magnesium Hydroxide (Milk Of Mag) 30 ml DAILY PRN PO CONSTIPATION; Start at 20:30 Zolpidem Tartrate (Ambien) 5 mg QHS PRN PO SLEEP; Start 03/24/17 at 20:30 Tamsulosin HCl (Flomax) 0.4 mg HS PO ; Start 03/24/17 at 21:00 Pramipexole (Mirapex) 2.25 mg QAM PO Last administered on 03/25/17 08:58; Admin Dose 2.25 MG; Start 03/25/17 at 09:00 Acetaminophen (Tylenol Tab) 500 mg Q6H PRN PO PAIN LEVEL 1-3 OR FEVER; Start at 21:30 Entacapone (Comtan) 200 mg TID PO Last administered on 03/25/17 08:56; Admin Dose 200 MG; Start 03/24/17 at 23:00 Carbidopa/Levodopa (Sinemet (25/ 100)) 2 tab TID PO Last administered on 08:56; Admin Dose 2 TAB; Start 03/24/17 at 23:00 FAHEEM MARTÍNEZ MD Mar 25, 2017 10:14
--- NOTE | 2017-03-25 12:31 | CONS ---
Date/Time of Note Date/Time of Note DATE: 03/25/17 TIME: 12:26 Assessment/Plan Assessment/Plan Additional Assessment/Plan HEENT exam is; supple neck, no JVD. No lymphadenopathy. Midline trachea. No thyromegaly. Patient has good dentition. Pupils are midsize and reactive to light. Chest examination; clear to auscultation. S1-S2 audible, no murmurs. Regular rhythm. Abdomen examination; soft, no organomegaly. Bowel sounds audible. Extremity exam; there is mild tenderness involving the right thigh. No peripheral edema. Pulses 1+ bilaterally. There are psoriatic plaques involving extremities. BUILDINGS AND GROUNDS DIRECTOR examination; no focal deficit. Assessment recommendations; 1. Patient admitted for right lower extremity DVT with discovery of right lung pulmonary emboli patient however is quite symptomatic. 2. Possibly secondary recent back surgery. Continue IV heparin. Patient is a good candidate for apixaban. I would recommend maintaining IV heparin at least for 5 days and then switching him over to apixaban. Currently there is no indication for [place] filter placement. Patient however will be evaluated by vascular surgeon for possible lower extremity thrombectomy. Consultation Date/Type/Reason Admit Date/Time Mar 24, 2017 at 18:24 Date of Consultation: Mar 25, 2017 Type of Consultation: Pulmonary Hx of Present Illness Pulmonary consultations requested for evaluation of pulmonary embolism involving the right lung. 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 Randhawa with complaints of right leg pain going on for the last 2 days upon evaluation she was sent over to hospital for ultrasound of the lower extremity which showed extensive right lower extremity DVT patient subsequently underwent a CT imaging of the chest which is showing right lung upper middle and lower lobe pulmonary emboli which are not central. Patient however denies any shortness of breath but does complain of leg pain for the last couple of days. Denies any chest pain, hemoptysis fever. Past medical history; next 1. History of recent spinal surgery. According to the patient this is his third surgery. 2. History of Parkinson's disease. 3. Psoriatic. 4. BPH. 5. Most of any hypertension diabetes or any coronary artery disease. 6. History of inguinal herniorrhaphy. Medications; reviewed. Allergies; none. Social history; patient is a remote history of smoking. No history of alcohol or drug abuse. Family history; patient is single he has 2 sons. 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 Review of systems; denies any headache, seizures. Chest pain, shortness of breath. Cough, hemoptysis. Denies any abdominal pain, nausea vomiting. Complains of right leg pain. Complains of back pain. General exam; elderly male, awake alert currently in no distress. Psychological: no complaints Past Medical History Medical History: high cholesterol, hypertension, other (psoriasis, Parkinsonism ) Past Surgical History Past Surgical Hx: other (spinal surgeries) Social History Alcohol Use: rarely Smoking Status: Former smoker Exam/Review of Systems Vital Signs Vitals Vital Signs Date Time Temp Pulse Resp B/P Pulse Ox O2 Delivery O2 Flow Rate FiO2 03/25/17 08:21 98.1 60 22 142/70 97 Intake and Output 03/24/17 03/24/17 03/25/17 15:00 23:00 07:00 Intake Total 1110 ml Output Total 450 ml Balance 660 ml Results Result Diagram: 03/24/17211403/24/172114 Results 24 hrs Laboratory Tests Test 03/24/17 21:15 03/25/17 04:36 White Blood Count 9.1 Red Blood Count 4.30 L Hemoglobin 14.0 Hematocrit 40.8 L Mean Corpuscular Volume 94.9 Mean Corpuscular Hemoglobin 32.6 Mean Corpuscular Hemoglobin Concent 34.3 Red Cell Distribution Width 12.4 Platelet Count 275 Mean Platelet Volume 9.1 Neutrophils % 66.8 Lymphocytes % 21.9 Monocytes % 7.1 Eosinophils % 3.3 Basophils % 0.5 Nucleated Red Blood Cells % 0.0 Neutrophils # 6.1 Lymphocytes # 2.0 Monocytes # 0.7 Eosinophils # 0.3 Basophils # 0.1 Nucleated Red Blood Cells # 0.0 Prothrombin Time 13.0 13.7 Prothrombin Time Ratio 1.0 1.1 INR International Normalized Ratio 0.98 1.05 Activated Partial Thromboplast Time 27.4 157.0 *H Sodium Level 143 Potassium Level 4.1 Chloride Level 108 Carbon Dioxide Level 28 Anion Gap 11 Blood Urea Nitrogen 24 H Creatinine 0.86 Glucose Level 101 Calcium Level 9.0 Total Bilirubin 0.1 L Direct Bilirubin 0.00 Indirect Bilirubin 0.1 Aspartate Amino Transf (AST/SGOT) 17 Alanine Aminotransferase (ALT/SGPT) 27 Alkaline Phosphatase 88 Total Protein 6.9 Albumin 4.5 Globulin 2.40 Albumin/Globulin Ratio 1.87 Medications Medications Current Medications Dextrose/Sodium Chloride (D5-1/2ns) 1,000 ml @ 40 mls/hr Q24H IV Last administered on 03/24/17 22:48; Admin Dose 40 MLS/HR; Start 03/24/17 at 21:00 Acetaminophen/ Hydrocodone Bitart ([place] (5/325)) 1 tab Q6H PRN PO MODERATE PAIN LEVEL 4-6; Start 03/24/17 at 20:30 Magnesium Hydroxide (Milk Of Mag) 30 ml DAILY PRN PO CONSTIPATION; Start at 20:30 Zolpidem Tartrate (Ambien) 5 mg QHS PRN PO SLEEP; Start 03/24/17 at 20:30 Tamsulosin HCl (Flomax) 0.4 mg HS PO ; Start 03/24/17 at 21:00 Pramipexole (Mirapex) 2.25 mg QAM PO Last administered on 03/25/17 08:58; Admin Dose 2.25 MG; Start 03/25/17 at 09:00 Acetaminophen (Tylenol Tab) 500 mg Q6H PRN PO PAIN LEVEL 1-3 OR FEVER; Start at 21:30 Entacapone (Comtan) 200 mg TID PO Last administered on 03/25/17 08:56; Admin Dose 200 MG; Start 03/24/17 at 23:00 Carbidopa/Levodopa (Sinemet (25/ 100)) 2 tab TID PO Last administered on 08:56; Admin Dose 2 TAB; Start 03/24/17 at 23:00 MATEO TOVAR Mar 25, 2017 12:30
--- NOTE | 2017-03-25 13:02 | CONS ---
Date/Time of Note Date/Time of Note DATE: 03/25/17 TIME: 12:51 Consult Date/Type/Reason Admit Date/Time Mar 24, 2017 at 18:24 Initial Consult Date 03/25/17 Type of Consultation: Pulmonary Ordering Provider: THU MAYES MD Subjective NO Shortness of breath. No nausea or emesis. No abdominal pain. Minimal right calf pain and swelling right leg noted. The patient has been seen by the Goat Driver who did not feel that he needs a filter unless a Thrombectomy is recommended by Dr. Fernandez. The patient has been seen by Dr. Frankie Ga in Hematology consultation to make certain that he does not have a hypercoagulation state that is contributing to his development of the DVT and PE. Objective Vital Signs Date Time Temp Pulse Resp B/P Pulse Ox O2 Delivery O2 Flow Rate FiO2 03/25/17 08:21 98.1 60 22 142/70 97 Intake and Output 03/24/17 03/24/17 03/25/17 14:59 22:59 06:59 Intake Total 1110 ml Output Total 450 ml Balance 660 ml Exam Alert , oriented in no acute distress. Chest -CTA Heart -RRR no murmurs Abdomen soft, BS active Right leg - positive Emmanuel's , swelling noted right calf Results/Medications Result Diagram: 03/24/17211403/24/172114 Results 24 hrs Laboratory Tests Test 03/24/17 21:15 03/25/17 04:36 White Blood Count 9.1 Red Blood Count 4.30 L Hemoglobin 14.0 Hematocrit 40.8 L Mean Corpuscular Volume 94.9 Mean Corpuscular Hemoglobin 32.6 Mean Corpuscular Hemoglobin Concent 34.3 Red Cell Distribution Width 12.4 Platelet Count 275 Mean Platelet Volume 9.1 Neutrophils % 66.8 Lymphocytes % 21.9 Monocytes % 7.1 Eosinophils % 3.3 Basophils % 0.5 Nucleated Red Blood Cells % 0.0 Neutrophils # 6.1 Lymphocytes # 2.0 Monocytes # 0.7 Eosinophils # 0.3 Basophils # 0.1 Nucleated Red Blood Cells # 0.0 Prothrombin Time 13.0 13.7 Prothrombin Time Ratio 1.0 1.1 INR International Normalized Ratio 0.98 1.05 Activated Partial Thromboplast Time 27.4 157.0 *H Sodium Level 143 Potassium Level 4.1 Chloride Level 108 Carbon Dioxide Level 28 Anion Gap 11 Blood Urea Nitrogen 24 H Creatinine 0.86 Glucose Level 101 Calcium Level 9.0 Total Bilirubin 0.1 L Direct Bilirubin 0.00 Indirect Bilirubin 0.1 Aspartate Amino Transf (AST/SGOT) 17 Alanine Aminotransferase (ALT/SGPT) 27 Alkaline Phosphatase 88 Total Protein 6.9 Albumin 4.5 Globulin 2.40 Albumin/Globulin Ratio 1.87 Medications Current Medications Dextrose/Sodium Chloride (D5-1/2ns) 1,000 ml @ 40 mls/hr Q24H IV Last administered on 03/24/17 22:48; Admin Dose 40 MLS/HR; Start 03/24/17 at 21:00 Acetaminophen/ Hydrocodone Bitart ([place] (5/325)) 1 tab Q6H PRN PO MODERATE PAIN LEVEL 4-6; Start 03/24/17 at 20:30 Magnesium Hydroxide (Milk Of Mag) 30 ml DAILY PRN PO CONSTIPATION; Start at 20:30 Zolpidem Tartrate (Ambien) 5 mg QHS PRN PO SLEEP; Start 03/24/17 at 20:30 Tamsulosin HCl (Flomax) 0.4 mg HS PO ; Start 03/24/17 at 21:00 Pramipexole (Mirapex) 2.25 mg QAM PO Last administered on 03/25/17 08:58; Admin Dose 2.25 MG; Start 03/25/17 at 09:00 Acetaminophen (Tylenol Tab) 500 mg Q6H PRN PO PAIN LEVEL 1-3 OR FEVER; Start at 21:30 Entacapone (Comtan) 200 mg TID PO Last administered on 03/25/17 08:56; Admin Dose 200 MG; Start 03/24/17 at 23:00 Carbidopa/Levodopa (Sinemet (25/ 100)) 2 tab TID PO Last administered on 08:56; Admin Dose 2 TAB; Start 03/24/17 at 23:00 Assessment/Plan Additional Assessment/Plan Pulmonary Emboli in periphery on right side noted on CT Angiogram Pt. will be see by vascular surgeon this afternoon, Dr. Fernandez. The golf ball trimmer does not think that this patient needs a filter placed in his IVC unless a thrombectomy is performed. The plan is to continue the IV Heparin for 4 -5 days while we get the patient up to a therapeutic dose on the Coumadin. If a thrombectomy is performed, this patient could be switched to Apixaban and stop the Coumadin. Hypercoaguable work up ordered by the deputy director. THU MAYES MD Mar 25, 2017 13:02
--- NOTE | 2017-03-25 15:51 | CONS ---
DATE OF ADMISSION: 03/24/2017 DATE OF CONSULTATION: TYPE OF CONSULTATION: Cardiology. REASON FOR CONSULTATION: Evaluation of DVT and PE. Thank you, Dr. Randhawa, asking me to see this patient. HISTORY OF PRESENT ILLNESS: This is a 71-year-old male who underwent 3 laminectomies in the past fe w months, mostly because of pain in the right lower extremity. The patient tells me that he has gonzalez d pain, swelling and heaviness in the right thigh. Subsequently, an ultrasound was done which showe d DVT in the right lower extremity involving the popliteal, and common femoral vein. Patient was ad mitted, started on anticoagulation. CAT scan of the chest was done which showed multiple right-side d pulmonary emboli. The patient does not have much shortness of breath. PHYSICAL EXAMINATION VITAL SIGNS: Blood pressure at the time is 142/70, pulse is 60, respirations 22, O2 saturation is 9 9% on room air with no shortness of breath. Right lower extremity swelling has diminished in in the past week. Patient is currently being treat ed with Coumadin 7.5 mg today in addition to heparin. PAST MEDICAL HISTORY: Spine disease. MEDICATIONS: In addition to Coumadin includes: 1. Tamsulosin. 2. Mirapex. 3. Coenzyme Q. 4. Ultravate cream for psoriasis. 5. Stalevo. PAST SURGICAL HISTORY: Laminectomy, multiple laminectomies. ALLERGIES: NONE. SOCIAL HISTORY: No smoking, drinking or drug use. REVIEW OF SYSTEMS: As per chart. GASTROINTESTINAL: No upper or lower GI bleeding, nausea, vomiting, constipation, diarrhea. GENITOURINARY: No hematuria, dysuria. SKIN: No skin changes, rashes. Positive for psoriasis. No weight loss, weight gain. Positive for history of depression in the family. PHYSICAL EXAMINATION: Blood pressure is 142/70, pulse is 60, respirations 22, saturations 97% on ro om air, temperature is 98.1. EXTREMITIES: Right leg is warm to touch. There is some swelling in the right thigh, and the right leg there is psoriasis affecting the right knee. Palpable pedal pulses. No signs of ischemia. LABORATORY VALUES: Significant for a white count of 9.1, hemoglobin 14, platelet count 275. PTT 87 and a creatinine of 0.96. RECOMMENDATIONS: First episode of right lower extremity deep venous thrombosis. Timing of the DVT is unknown. It appears to probably be a few weeks to few months old. The patient also has multiple right-sided PE. At this time, his options are anticoagulation alone. However, I highly recommend putting IVC filter in because of the proximal nature of the DVT and the fact that the patient has sh own signs of PE. Considering his active status, I would also recommend at least an attempt at the thrombectomy of the DVT in the right lower extremity, although if the DVT is old, the procedure may not be completely successful. The above was fully explained to the patient and the patient will dec jolene and we will follow his wishes. Will discuss with Dr. Randhawa. Dictated By: DAYLIN PATEL/ANGIE Conf#: [id number] DID#: [id number] CC: THU RANDHAWA DO;*End*
[2017-03-25] MEDS ORDERED: WARFARIN 7.5 MG TAB PO ONE (17:00)
[2017-03-25 20:32] VITALS: BP 129/65; RESP 18
[2017-03-25] MEDS: TAMSULOSIN (SR) 0.4 MG CAP PO SCH (21:20)
[2017-03-25] MEDS: DEXTROSE 5%-0.45% NACL 1,000 ML IV SCH (21:20)
[2017-03-26 04:50] LABS: INR 1.29; PROTIME 16.2 Sec (12.2-14.2); PT RATIO 1.3
[2017-03-26 04:55] LABS: PARTIAL THROMBOPLASTIN TIME 77.5 Sec (25.0-35.0)
[2017-03-26 07:44] VITALS: BP 144/71; RESP 18
[2017-03-26] MEDS: PRAMIPEXOLE 0.25 MG TAB PO SCH (09:06)
[2017-03-26] MEDS: ENTACAPONE 200 MG TAB PO SCH ×3 (09:06→20:19)
[2017-03-26] MEDS: CARBIDOPA/LEVODOPA (25/100) TAB PO SCH ×3 (09:06→20:19)
--- NOTE | 2017-03-26 11:16 | PN ---
Date/Time of Note Date/Time of Note DATE: 03/26/17 TIME: 11:11 Assessment/Plan VTE Prophylaxis VTE Prophylaxis Intervention: heparin Lines/Catheters IV Catheter Type (from [facility]): Peripheral IV Urinary Cath still in place: No Assessment/Plan Chief Complaint/Hosp Course 71 yo man with lumbar back surgery about three weeks ago and who now is hospitalized for right DVT and pulmonary emboli. He is currently on heparin and Coumadin. There are plans for assessment by vascular surgery and pulmonary medicine pending. Presently he feels well and is not dyspneic or in pain. I am asked to assess for risk factors. Problems: Assessment/Plan Pt is clinically improving. I would suggest Eliquis or Xarelto be started and that he is treated for 6 months. Thrombophilia evaluation is pending. If he does have a mutation, then he may need anticoagulation for a longer period of time. Since he is improving clinically, I am not sure that surgical intervention is needed. Dr. Fernandez and Dr. Cole are going to see patient also. Discussed with Dr. Randhawa and patient. Subjective 24 Hr Interval Summary Free Text/Dictation Pt feels well. No dyspnea or pain. Exam/Review of Systems Vital Signs Vitals Vital Signs Date Time Temp Pulse Resp B/P Pulse Ox O2 Delivery O2 Flow Rate FiO2 03/26/17 07:44 97.9 60 18 144/71 93 Intake and Output 03/25/17 03/25/17 03/26/17 15:00 23:00 07:00 Intake Total 117 ml 1958 ml 1685 ml Output Total 1050 ml 950 ml Balance 117 ml 908 ml 735 ml Exam Constitutional: alert, oriented Head: normocephalic Respiratory: clear to auscultation, other (O2 sat ~97%) Cardiovascular: regular rate and rhythm Gastrointestinal: non-tender, soft Musculoskeletal: nl extremities to inspection, other (previous right leg edema gone) Results Result Diagram: 03/24/17211403/24/172114 Results 24 hrs Laboratory Tests Test 03/25/17 12:52 03/25/17 21:35 03/26/17 04:12 Activated Partial Thromboplast Time 87.6 *H 107.0 *H 77.5 *H Prothrombin Time 16.2 H Prothrombin Time Ratio 1.3 INR International Normalized Ratio 1.29 Medications Medications Current Medications Dextrose/Sodium Chloride (D5-1/2ns) 1,000 ml @ 40 mls/hr Q24H IV Last administered on 03/25/17 21:20; Admin Dose 40 MLS/HR; Start 03/24/17 at 21:00 Acetaminophen/ Hydrocodone Bitart ([place] (5/325)) 1 tab Q6H PRN PO MODERATE PAIN LEVEL 4-6; Start 03/24/17 at 20:30 Magnesium Hydroxide (Milk Of Mag) 30 ml DAILY PRN PO CONSTIPATION; Start at 20:30 Zolpidem Tartrate (Ambien) 5 mg QHS PRN PO SLEEP; Start 03/24/17 at 20:30 Tamsulosin HCl (Flomax) 0.4 mg HS PO Last administered on 03/25/17 21:20; Admin Dose 0.4 MG; Start 03/24/17 at 21:00 Pramipexole (Mirapex) 2.25 mg QAM PO Last administered on 03/26/17 09:06; Admin Dose 2.25 MG; Start 03/25/17 at 09:00 Acetaminophen (Tylenol Tab) 500 mg Q6H PRN PO PAIN LEVEL 1-3 OR FEVER; Start at 21:30 Entacapone (Comtan) 200 mg TID PO Last administered on 03/26/17 09:06; Admin Dose 200 MG; Start 03/24/17 at 23:00 Carbidopa/Levodopa (Sinemet (25/ 100)) 2 tab TID PO Last administered on 09:06; Admin Dose 2 TAB; Start 03/24/17 at 23:00 FAHEEM MARTÍNEZ MD Mar 26, 2017 11:16
[2017-03-26] MEDS: HEPARIN 25000 UNITS/250 ML 250 ML IV SCH ×2 (13:09→18:40)
--- NOTE | 2017-03-26 13:10 | CONS ---
Date/Time of Note Date/Time of Note DATE: 03/26/17 TIME: 13:08 Assessment/Plan Assessment/Plan Chief Complaint/Hosp Course Pulmonary consultations requested for evaluation of pulmonary embolism involving the right lung. 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 Patient however denies any shortness of breath but does complain of leg pain for the last couple of days. Denies any chest pain, hemoptysis fever. Past medical history; next 1. History of recent spinal surgery. According to the patient this is his third surgery. 2. History of Parkinson's disease. 3. Psoriatic. 4. BPH. 5. Most of any hypertension diabetes or any coronary artery disease. 6. History of inguinal herniorrhaphy. Medications; reviewed. Allergies; none. Social history; patient is a remote history of smoking. No history of alcohol or drug abuse. Family history; patient is single he has 2 sons. 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 Review of systems; denies any headache, seizures. Chest pain, shortness of breath. Cough, hemoptysis. Denies any abdominal pain, nausea vomiting. Complains of right leg pain. Complains of back pain. General exam; elderly male, awake alert currently in no distress. Problems: Additional Assessment/Plan Assessment recommendations; next 1. Patient admitted for lower extremity DVT with bilateral PE is clinically doing very well. 2. Recent spinal surgery. Causing immobilization likely the precipitating factor for DVT and PE. 3. History of psoriasis, Parkinson's disease and BPH. Continue current treatment. Start apixaban in 48 hours. Consultation Date/Type/Reason Admit Date/Time Mar 24, 2017 at 18:24 Initial Consult Date 03/25/17 Type of Consultation: Pulmonary Referring Provider: THU MAYES MD 24 HR Interval Summary Free Text/Dictation Patient condition stable. Denies any shortness breath, chest pain, coughing or sputum production. General exam; elderly male, awake alert currently in no distress. Exam/Review of Systems Vital Signs Vitals Vital Signs Date Time Temp Pulse Resp B/P Pulse Ox O2 Delivery O2 Flow Rate FiO2 03/26/17 07:44 97.9 60 18 144/71 93 Intake and Output 03/25/17 03/25/17 03/26/17 15:00 23:00 07:00 Intake Total 117 ml 1958 ml 1685 ml Output Total 1050 ml 950 ml Balance 117 ml 908 ml 735 ml Exam HEENT examination; supple neck, no JVD. No lymphadenopathy midline trachea. No thyromegaly. Pharynx is clear. Chest examination; clear to auscultation. S1-S2 audible, no murmurs. Regular rhythm. Abdomen exam; benign. Extremity exam is; no peripheral edema. No tenderness. SOFT MUD MOLDER examination; no focal deficit. Results Result Diagram: 03/24/17211403/24/172114 Results 24 hrs Laboratory Tests Test 03/25/17 21:35 03/26/17 04:12 03/26/17 09:54 Activated Partial Thromboplast Time 107.0 *H 77.5 *H 113.6 *H Prothrombin Time 16.2 H Prothrombin Time Ratio 1.3 INR International Normalized Ratio 1.29 Medications Medications Current Medications Dextrose/Sodium Chloride (D5-1/2ns) 1,000 ml @ 40 mls/hr Q24H IV Last administered on 03/25/17 21:20; Admin Dose 40 MLS/HR; Start 03/24/17 at 21:00 Acetaminophen/ Hydrocodone Bitart ([place] (5/325)) 1 tab Q6H PRN PO MODERATE PAIN LEVEL 4-6; Start 03/24/17 at 20:30 Magnesium Hydroxide (Milk Of Mag) 30 ml DAILY PRN PO CONSTIPATION; Start at 20:30 Zolpidem Tartrate (Ambien) 5 mg QHS PRN PO SLEEP; Start 03/24/17 at 20:30 Tamsulosin HCl (Flomax) 0.4 mg HS PO Last administered on 03/25/17 21:20; Admin Dose 0.4 MG; Start 03/24/17 at 21:00 Pramipexole (Mirapex) 2.25 mg QAM PO Last administered on 03/26/17 09:06; Admin Dose 2.25 MG; Start 03/25/17 at 09:00 Acetaminophen (Tylenol Tab) 500 mg Q6H PRN PO PAIN LEVEL 1-3 OR FEVER; Start at 21:30 Entacapone (Comtan) 200 mg TID PO Last administered on 03/26/17 09:06; Admin Dose 200 MG; Start 03/24/17 at 23:00 Carbidopa/Levodopa (Sinemet (25/ 100)) 2 tab TID PO Last administered on 09:06; Admin Dose 2 TAB; Start 03/24/17 at 23:00 MATEO TOVAR Mar 26, 2017 13:10
--- NOTE | 2017-03-26 15:15 | PN ---
Date/Time of Note Date/Time of Note DATE: 03/26/17 TIME: 15:12 Assessment/Plan Lines/Catheters IV Catheter Type (from [facility]): Peripheral IV Delgado in Place (from [facility]): No Assessment/Plan Chief Complaint/Hosp Course RECOMMENDATIONS: First episode of right lower extremity deep venous thrombosis. Timing of the DVT is unknown. It appears to probably be a few weeks to few months old. The patient also has multiple right-sided PE. At this time, his options are anticoagulation alone. However, I highly recommend putting IVC filter in because of the proximal nature of the DVT and the fact that the patient has shown signs of PE. Considering his active status, I would also recommend at least an attempt at the thrombectomy of the DVT in the right lower extremity, although if the DVT is old, the procedure may not be completely successful. The above was fully explained to the patient and the patient will decide and we will follow his wishes. Will continue anticoagulation for now Will discuss with Dr. Randhawa. Problems: Subjective 24 Hr Interval Summary Constitutional: improved Pain Control: mild Exam/Review of Systems Vital Signs Vitals Vital Signs Date Time Temp Pulse Resp B/P Pulse Ox O2 Delivery O2 Flow Rate FiO2 03/26/17 07:44 97.9 60 18 144/71 93 Intake and Output 03/25/17 03/25/17 03/26/17 15:00 23:00 07:00 Intake Total 117 ml 1958 ml 1685 ml Output Total 1050 ml 950 ml Balance 117 ml 908 ml 735 ml Exam Extremities: calf tenderness, normal pulses, tenderness Results Result Diagram: 03/24/17211403/24/172114 DAYLIN RUSSO MD Mar 26, 2017 15:15
--- NOTE | 2017-03-26 16:27 | PN ---
Date/Time of Note Date/Time of Note DATE: 03/26/17 TIME: 16:06 Assessment/Plan VTE Prophylaxis VTE Prophylaxis Intervention: ambulation, heparin Lines/Catheters IV [facility] Type ([facility]): Peripheral IV Urinary Cath still in place: No Assessment/Plan Chief Complaint/Hosp Course 71 y/o male s/p spine surgery 3 weeks ago. Admitted for extensive right LE DVT, and peripheral right sided PE on CTA. 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 Thrombectomy was recommended by Dr. Fernandez, and the patient agrees. Coagulation studies ordered by Dr. Ga, Hematology are pending, which will dictate the length of needed anticoagulation therapy. 1. Follow up with Dr. Fernandez re. Thrombectomy/IVC planning. 2. Awaitign coagulation study results. 3. Continue heparin drip, continue Coumadin 7.5mg today 4. Will consider switching to apixaban in 48hrs as per recommendation once procedure is done. 5. CBC, PT/PTT/INR in AM. Case discussed with Dr. Randhawa Problems: Subjective 24 Hr Interval Summary Free Text/Dictation Patient is comfortable in bed. No shortness of breath this AM. No abdominal pain , nausea or emesis. No right calf pain at rest, minimal with movement/ ambulation. Swelling of the right leg noted improved. No difficulty with BMs or urination. Constitutional: no complaints Eyes: no complaints ENT: no complaints Respiratory: no complaints Cardiovascular: no complaints Gastrointestinal: no complaints Genitourinary: no complaints Musculoskeletal: no complaints Skin: no complaints Neurologic: no complaints Endocrine: no complaints Lymphatic: no complaints Psychological: nl mood/affect, no complaints Immunologic: no complaints Exam/Review of Systems Vital Signs Vitals Vital Signs Date Time Temp Pulse Resp B/P Pulse Ox O2 Delivery O2 Flow Rate FiO2 03/26/17 07:44 97.9 60 18 144/71 93 Intake and Output 03/25/17 03/25/17 03/26/17 15:00 23:00 07:00 Intake Total 117 ml 1958 ml 1685 ml Output Total 1050 ml 950 ml Balance 117 ml 908 ml 735 ml Exam Constitutional: alert, oriented, well developed Psych: nl mood/affect, no complaints Head: atraumatic, normocephalic Eyes: EOMI, PERRL, nl conjunctiva, nl lids, nl sclera ENMT: nl external ears & nose, nl lips & teeth, nl nasal mucosa & septum Neck: non-tender, supple Respiratory: clear to auscultation, normal air movement, No crackles/rales, No diminished breath sounds Cardiovascular: nl pulses, regular rate and rhythm Gastrointestinal: nl liver, spleen, non-tender, soft Musculoskeletal: nl extremities to inspection, nl gait and stance Extremities: other Neurological: OPTOMECHANICAL TECHNICIAN II-XII intact, nl mental status, nl speech, nl strength Lymph: nl lymph nodes Results Result Diagram: 03/24/17211403/24/172114 Results 24 hrs Laboratory Tests Test 03/25/17 21:35 03/26/17 04:12 03/26/17 09:54 Activated Partial Thromboplast Time 107.0 *H 77.5 *H 113.6 *H Prothrombin Time 16.2 H Prothrombin Time Ratio 1.3 INR International Normalized Ratio 1.29 Medications Medications Current Medications Dextrose/Sodium Chloride (D5-1/2ns) 1,000 ml @ 40 mls/hr Q24H IV Last administered on 03/25/17 21:20; Admin Dose 40 MLS/HR; Start 03/24/17 at 21:00 Acetaminophen/ Hydrocodone Bitart ([place] (5/325)) 1 tab Q6H PRN PO MODERATE PAIN LEVEL 4-6; Start 03/24/17 at 20:30 Magnesium Hydroxide (Milk Of Mag) 30 ml DAILY PRN PO CONSTIPATION; Start at 20:30 Zolpidem Tartrate (Ambien) 5 mg QHS PRN PO SLEEP; Start 03/24/17 at 20:30 Tamsulosin HCl (Flomax) 0.4 mg HS PO Last administered on 03/25/17 21:20; Admin Dose 0.4 MG; Start 03/24/17 at 21:00 Pramipexole (Mirapex) 2.25 mg QAM PO Last administered on 03/26/17 09:06; Admin Dose 2.25 MG; Start 03/25/17 at 09:00 Acetaminophen (Tylenol Tab) 500 mg Q6H PRN PO PAIN LEVEL 1-3 OR FEVER; Start at 21:30 Entacapone (Comtan) 200 mg TID PO Last administered on 03/26/17 13:28; Admin Dose 200 MG; Start 03/24/17 at 23:00 Carbidopa/Levodopa (Sinemet (25/ 100)) 2 tab TID PO Last administered on 13:28; Admin Dose 2 TAB; Start 03/24/17 at 23:00 BRAYAN RUGGIERO Mar 26, 2017 16:18
[2017-03-26] MEDS ORDERED: WARFARIN 7.5 MG TAB PO ONE (17:00)
[2017-03-26 19:08] VITALS: BP 152/73; RESP 18
[2017-03-26] MEDS: TAMSULOSIN (SR) 0.4 MG CAP PO SCH (20:19)
[2017-03-26] MEDS: DEXTROSE 5%-0.45% NACL 1,000 ML IV SCH (23:08)
[2017-03-27 05:40] LABS: ADD SCAN DIFF NO
[2017-03-27 05:52] LABS: BASOPHILS % 0.4 % (0.0-2.0); EOSINOPHILS # 0.3 10^3/ul (0.0-0.5); EOSINOPHILS % 3.4 % (0.0-7.0); HEMATOCRIT 41.2 % (42.0-52.0); LYMPHOCYTES % 25.7 % (15.0-51.0); MEAN CORPUSCULAR HEMOGLOBIN 31.7 pg (29.0-33.0); MEAN CORPUSCULAR VOLUME 93.4 fl (82.0-101.0); MEAN PLATELET VOLUME 9.2 fl (7.4-10.4); MONOCYTE # 0.5 10^3/ul (0.3-0.9); MONOCYTES % 6.7 % (0.0-11.0); NEUTROPHILS % 63.4 % (39.0-77.0); PLATELET COUNT 253 10^3/UL (140-415); RED BLOOD COUNT 4.41 10^6/ul (4.70-6.10); RED CELL DISTRIBUTION WIDTH 12.4 % (11.5-14.5); WHITE BLOOD COUNT 7.9 10^3/ul (4.8-10.8)
[2017-03-27 06:21] LABS: CALCIUM 8.8 mg/dl (8.4-10.2); CREATININE 0.72 mg/dl (0.61-1.24); POTASSIUM 3.8 mmol/L (3.5-5.1)
[2017-03-27 06:35] LABS: INR 1.82; PROTIME 21.2 Sec (12.2-14.2); PT RATIO 1.7
[2017-03-27 06:47] LABS: PARTIAL THROMBOPLASTIN TIME 77.1 Sec (25.0-35.0)
[2017-03-27 08:16] VITALS: BP 134/63; RESP 18
[2017-03-27] MEDS: CARBIDOPA/LEVODOPA (25/100) TAB PO SCH ×3 (09:51→21:44)
[2017-03-27] MEDS: ENTACAPONE 200 MG TAB PO SCH ×3 (09:51→21:44)
[2017-03-27] MEDS: PRAMIPEXOLE 0.25 MG TAB PO SCH (09:52)
--- NOTE | 2017-03-27 12:09 | CONS ---
Date/Time of Note Date/Time of Note DATE: 03/27/17 TIME: 12:07 Assessment/Plan Assessment/Plan Chief Complaint/Hosp Course Pulmonary consultations requested for evaluation of pulmonary embolism involving the right lung. 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 Patient however denies any shortness of breath but does complain of leg pain for the last couple of days. Denies any chest pain, hemoptysis fever. Past medical history; next 1. History of recent spinal surgery. According to the patient this is his third surgery. 2. History of Parkinson's disease. 3. Psoriatic. 4. BPH. 5. Most of any hypertension diabetes or any coronary artery disease. 6. History of inguinal herniorrhaphy. Medications; reviewed. Allergies; none. Social history; patient is a remote history of smoking. No history of alcohol or drug abuse. Family history; patient is single he has 2 sons. 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 Review of systems; denies any headache, seizures. Chest pain, shortness of breath. Cough, hemoptysis. Denies any abdominal pain, nausea vomiting. Complains of right leg pain. Complains of back pain. General exam; elderly male, awake alert currently in no distress. Problems: Additional Assessment/Plan Assessment recommendations; next 1. Patient admitted for right femoral vein DVT with pulmonary embolism. 2. Stable respiratory status. 3. History of BPH. 4. Recent back surgery. 5. Parkinson's disease. If thrombectomy of the right femoral vein is not contemplated I would recommend stopping further Coumadin and starting the patient on apixaban tomorrow via protocol and discharging the patient home. Patient will need at least 6 months of treatment. Consultation Date/Type/Reason Admit Date/Time Mar 24, 2017 at 18:24 Initial Consult Date 03/25/17 Type of Consultation: Pulmonary Referring Provider: THU MAYES MD 24 HR Interval Summary Free Text/Dictation Patient condition is stable. Denies any shortness of breath, chest pain. Any cough or hemoptysis. Right thigh pain is improving. Isacc; elderly male, awake alert currently in no distress. Exam/Review of Systems Vital Signs Vitals Vital Signs Date Time Temp Pulse Resp B/P Pulse Ox O2 Delivery O2 Flow Rate FiO2 03/27/17 08:16 97.7 71 18 134/63 96 Intake and Output 03/26/17 03/26/17 03/27/17 15:00 23:00 07:00 Intake Total 1485 ml 985 ml Output Total 1050 ml 700 ml Balance 435 ml 285 ml Exam HEENT exam is; supple neck, no JVD. No lymphadenopathy. Midline trachea. No thyromegaly. Pharynx is clear. Patient has good dentition. Chest examination; clear to ulceration. S1-S2 audible, no murmurs. Regular rhythm. Abdomen examination; soft, no organomegaly. Bowel sounds audible. Extremity exam; no peripheral edema. There is no calf or thigh edema or tenderness. GLASS PRODUCTS INSPECTOR examination; no focal deficit. Results Result Diagram: 03/27/17 0435 03/27/17 0435 Results 24 hrs Laboratory Tests Test 03/26/17 19:15 03/27/17 01:01 03/27/17 04:35 03/27/17 07:00 Activated Partial Thromboplast Time 36.1 H 65.6 H 77.1 *H 90.8 *H White Blood Count 7.9 Red Blood Count 4.41 L Hemoglobin 14.0 Hematocrit 41.2 L Mean Corpuscular Volume 93.4 Mean Corpuscular Hemoglobin 31.7 Mean Corpuscular Hemoglobin Concent 34.0 Red Cell Distribution Width 12.4 Platelet Count 253 Mean Platelet Volume 9.2 Neutrophils % 63.4 Lymphocytes % 25.7 Monocytes % 6.7 Eosinophils % 3.4 Basophils % 0.4 Nucleated Red Blood Cells % 0.0 Neutrophils # 5.0 Lymphocytes # 2.0 Monocytes # 0.5 Eosinophils # 0.3 Basophils # 0.0 Nucleated Red Blood Cells # 0.0 Prothrombin Time 21.2 #H Prothrombin Time Ratio 1.7 INR International Normalized Ratio 1.82 Sodium Level 142 Potassium Level 3.8 Chloride Level 108 Carbon Dioxide Level 25 Anion Gap 13 Blood Urea Nitrogen 16 Creatinine 0.72 Glucose Level 113 Calcium Level 8.8 Medications Medications Current Medications Dextrose/Sodium Chloride (D5-1/2ns) 1,000 ml @ 40 mls/hr Q24H IV Last administered on 03/26/17 23:08; Admin Dose 40 MLS/HR; Start 03/24/17 at 21:00 Acetaminophen/ Hydrocodone Bitart ([place] (5/325)) 1 tab Q6H PRN PO MODERATE PAIN LEVEL 4-6; Start 03/24/17 at 20:30 Magnesium Hydroxide (Milk Of Mag) 30 ml DAILY PRN PO CONSTIPATION; Start at 20:30 Zolpidem Tartrate (Ambien) 5 mg QHS PRN PO SLEEP; Start 03/24/17 at 20:30 Tamsulosin HCl (Flomax) 0.4 mg HS PO Last administered on 03/26/17 20:19; Admin Dose 0.4 MG; Start 03/24/17 at 21:00 Pramipexole (Mirapex) 2.25 mg QAM PO Last administered on 03/27/17 09:52; Admin Dose 2.25 MG; Start 03/25/17 at 09:00 Acetaminophen (Tylenol Tab) 500 mg Q6H PRN PO PAIN LEVEL 1-3 OR FEVER; Start at 21:30 Entacapone (Comtan) 200 mg TID PO Last administered on 03/27/17 09:51; Admin Dose 200 MG; Start 03/24/17 at 23:00 Carbidopa/Levodopa (Sinemet (25/ 100)) 2 tab TID PO Last administered on 09:51; Admin Dose 2 TAB; Start 03/24/17 at 23:00 MATEO TOVAR Mar 27, 2017 12:09
--- NOTE | 2017-03-27 12:14 | CONS ---
Date/Time of Note Date/Time of Note DATE: 03/27/17 TIME: 12:07 Consult Date/Type/Reason Admit Date/Time Mar 24, 2017 at 18:24 Initial Consult Date 03/25/17 Type of Consultation: Pulmonary Ordering Provider: THU MAYES MD Subjective No shortness of breath, chest pain or calf pain. He has minimal pain right anterior thigh. Eating well. No nausea or emesis. No fever or chills. Objective Vital Signs Date Time Temp Pulse Resp B/P Pulse Ox O2 Delivery O2 Flow Rate FiO2 03/27/17 08:16 97.7 71 18 134/63 96 Intake and Output 03/26/17 03/26/17 03/27/17 14:59 22:59 06:59 Intake Total 1485 ml 985 ml Output Total 1050 ml 700 ml Balance 435 ml 285 ml Exam Alert, oriented male in no acute distress. Chest CTA Heart-RRR no murmurs Abdomen soft, BS active, no masses Right calf 15 1/4" left calf 14" Negative Emmanuel's sign. Results/Medications Result Diagram: 03/27/17 0435 03/27/17 0435 Results 24 hrs Laboratory Tests Test 03/26/17 19:15 03/27/17 01:01 03/27/17 04:35 03/27/17 07:00 Activated Partial Thromboplast Time 36.1 H 65.6 H 77.1 *H 90.8 *H White Blood Count 7.9 Red Blood Count 4.41 L Hemoglobin 14.0 Hematocrit 41.2 L Mean Corpuscular Volume 93.4 Mean Corpuscular Hemoglobin 31.7 Mean Corpuscular Hemoglobin Concent 34.0 Red Cell Distribution Width 12.4 Platelet Count 253 Mean Platelet Volume 9.2 Neutrophils % 63.4 Lymphocytes % 25.7 Monocytes % 6.7 Eosinophils % 3.4 Basophils % 0.4 Nucleated Red Blood Cells % 0.0 Neutrophils # 5.0 Lymphocytes # 2.0 Monocytes # 0.5 Eosinophils # 0.3 Basophils # 0.0 Nucleated Red Blood Cells # 0.0 Prothrombin Time 21.2 #H Prothrombin Time Ratio 1.7 INR International Normalized Ratio 1.82 Sodium Level 142 Potassium Level 3.8 Chloride Level 108 Carbon Dioxide Level 25 Anion Gap 13 Blood Urea Nitrogen 16 Creatinine 0.72 Glucose Level 113 Calcium Level 8.8 Medications Current Medications Dextrose/Sodium Chloride (D5-1/2ns) 1,000 ml @ 40 mls/hr Q24H IV Last administered on 03/26/17 23:08; Admin Dose 40 MLS/HR; Start 03/24/17 at 21:00 Acetaminophen/ Hydrocodone Bitart ([place] (5/325)) 1 tab Q6H PRN PO MODERATE PAIN LEVEL 4-6; Start 03/24/17 at 20:30 Magnesium Hydroxide (Milk Of Mag) 30 ml DAILY PRN PO CONSTIPATION; Start at 20:30 Zolpidem Tartrate (Ambien) 5 mg QHS PRN PO SLEEP; Start 03/24/17 at 20:30 Tamsulosin HCl (Flomax) 0.4 mg HS PO Last administered on 03/26/17 20:19; Admin Dose 0.4 MG; Start 03/24/17 at 21:00 Pramipexole (Mirapex) 2.25 mg QAM PO Last administered on 03/27/17 09:52; Admin Dose 2.25 MG; Start 03/25/17 at 09:00 Acetaminophen (Tylenol Tab) 500 mg Q6H PRN PO PAIN LEVEL 1-3 OR FEVER; Start at 21:30 Entacapone (Comtan) 200 mg TID PO Last administered on 03/27/17 09:51; Admin Dose 200 MG; Start 03/24/17 at 23:00 Carbidopa/Levodopa (Sinemet (25/ 100)) 2 tab TID PO Last administered on 09:51; Admin Dose 2 TAB; Start 03/24/17 at 23:00 Assessment/Plan Additional Assessment/Plan PT INR 1.82 Patient received Coumadin 7.5 mg last night. We plan to switch this patient over to Apixaban, rather than discharge him on Coumadin. The only reason to treat with Coumadin now is the fact that we were not sure if the vascular surgeon is or is not going to take this patient to surgery to perform a Thrombectomy and insert a Pietro filter. The patient indicates that Dr. Fernandez thought that he might perform the thrombectomy on 03/28/2017 or 2016. The patient is willing to proceed with the surgery. Dr. Mayes attempted to communicate with Dr. Fernandez this weekend, but was unsuccessful late on Monday afternoon 03/25/2017and again on 03/26/2017. Dr. Mayes will call the vascular surgeon again today to discuss a plan of action. THU MAYES MD Mar 27, 2017 12:14
[2017-03-27] MEDS: HEPARIN 25000 UNITS/250 ML 250 ML IV SCH (16:44)
[2017-03-27 19:58] VITALS: BP 128/63; RESP 18
--- NOTE | 2017-03-27 20:34 | PN ---
DATE: 03/27/2017 SUBJECTIVE: Patient states that he is feeling well. Is experiencing some right lower extremity dis comfort. The patient denies shortness of breath or chest pain. He has had no cough or hemoptysis. OBJECTIVE GENERAL: The patient is a well-developed, well-nourished male who is in no acute distress. VITAL SI GNS: Temperature 97.8, pulse 76 and regular, respirations 18, blood pressure 128/63, pulse oximetry 93% on room air. SKIN: No ecchymosis, no petechiae or rashes. There are stasis changes in both pretibial areas. HEENT: Normocephalic. No evidence of trauma. There is no scleral icterus. Oral mucosa is moist w ithout lesions. NECK: Supple. No jugular venous distention or thyroid enlargement. CHEST: Clear to auscultation and percussion. No rhonchi, wheezes, rales or rubs. HEART: Regular sinus rhythm, no S3, S4 or murmurs. No rubs. ABDOMEN: Soft, no masses, no ascites. EXTREMITIES: No clubbing or cyanosis. The right lower extremity is greater in and circumference th an the left. Is somewhat warmer to the touch than the left as well. NEUROLOGIC: CBC: White count 7,900, hemoglobin 14, hematocrit 41.2, and platelet count 253,000. P TT is 75.7. Sodium 142, potassium 3.8, creatinine 0.72, BUN 16. ASSESSMENT: 1. Deep vein thrombosis in the right lower extremity. 2. Multiple pulmonary emboli secondary to #1. PLAN: The patient is to possibly have a thrombectomy attempted tomorrow. If thrombectomy is effect agustín, then a vena cava filter will be placed. I do agree with the patient receiving anticoagulation with apixaban following this procedure. Dr. Ga has initiated an evaluation for thrombophilia. These results will not be available un til after the patient is discharged. We will follow up as an outpatient. Dictated By: AUGUSTO CLARK MD, SR/ANGIE Conf#: [id number] DID#: [id number]
[2017-03-27] MEDS: TAMSULOSIN (SR) 0.4 MG CAP PO SCH (21:44)
[2017-03-27] MEDS: MAGNESIUM HYDROXIDE 30ML CUP PO PRN (21:44)
[2017-03-28] VITALS (8 sets, daily range): BP systolic 102–157; BP diastolic 63–87; PULSE 65–91; RESP 16–24
[2017-03-28] MEDS: DEXTROSE 5%-0.45% NACL 1,000 ML IV SCH ×3 (00:16→20:43)
[2017-03-28 05:35] LABS: ADD SCAN DIFF NO
[2017-03-28 05:44] LABS: BASOPHILS % 0.4 % (0.0-2.0); EOSINOPHILS # 0.3 10^3/ul (0.0-0.5); EOSINOPHILS % 3.7 % (0.0-7.0); HEMATOCRIT 41.8 % (42.0-52.0); HEMOGLOBIN 13.9 g/dl (14.0-18.0); LYMPHOCYTES # 2.4 10^3/ul (0.8-2.9); LYMPHOCYTES % 28.4 % (15.0-51.0); MEAN CORPUSCULAR HGB CONC 33.3 g/dl (32.0-37.0); MEAN CORPUSCULAR VOLUME 93.1 fl (82.0-101.0); MEAN PLATELET VOLUME 9.1 fl (7.4-10.4); MONOCYTE # 0.6 10^3/ul (0.3-0.9); MONOCYTES % 6.7 % (0.0-11.0); NEUTROPHILS % 60.4 % (39.0-77.0); PLATELET COUNT 241 10^3/UL (140-415); RED BLOOD COUNT 4.49 10^6/ul (4.70-6.10); RED CELL DISTRIBUTION WIDTH 12.7 % (11.5-14.5); WHITE BLOOD COUNT 8.3 10^3/ul (4.8-10.8)
[2017-03-28 05:54] LABS: INR 1.74; PROTIME 20.5 Sec (12.2-14.2); PT RATIO 1.6
[2017-03-28 05:55] LABS: PARTIAL THROMBOPLASTIN TIME 64.6 Sec (25.0-35.0)
[2017-03-28 06:02] LABS: CALCIUM 8.6 mg/dl (8.4-10.2); CREATININE 0.74 mg/dl (0.61-1.24)
[2017-03-28] MEDS: PRAMIPEXOLE 0.25 MG TAB PO SCH (09:00)
[2017-03-28] MEDS: CARBIDOPA/LEVODOPA (25/100) TAB PO SCH ×3 (09:00→20:13)
[2017-03-28] MEDS: ENTACAPONE 200 MG TAB PO SCH ×3 (09:00→20:38)
--- NOTE | 2017-03-28 10:43 | CONS ---
Date/Time of Note Date/Time of Note DATE: 03/28/17 TIME: 10:41 Assessment/Plan Assessment/Plan Chief Complaint/Hosp Course Pulmonary consultations requested for evaluation of pulmonary embolism involving the right lung. 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 Mayes with complaints of right leg pain going on for the last 2 days upon evaluation she was sent over to hospital for ultrasound of the lower extremity which showed extensive right lower extremity DVT patient subsequently underwent a CT imaging of the chest which is showing right lung upper middle and lower lobe pulmonary emboli which are not central. Patient however denies any shortness of breath but does complain of leg pain for the last couple of days. Denies any chest pain, hemoptysis fever. Past medical history; next 1. History of recent spinal surgery. According to the patient this is his third surgery. 2. History of Parkinson's disease. 3. Psoriatic. 4. BPH. 5. Most of any hypertension diabetes or any coronary artery disease. 6. History of inguinal herniorrhaphy. Medications; reviewed. Allergies; none. Social history; patient is a remote history of smoking. No history of alcohol or drug abuse. Family history; patient is single he has 2 sons. 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 Review of systems; denies any headache, seizures. Chest pain, shortness of breath. Cough, hemoptysis. Denies any abdominal pain, nausea vomiting. Complains of right leg pain. Complains of back pain. General exam; elderly male, awake alert currently in no distress. Problems: Additional Assessment/Plan Assessment recommendations; next 1. Patient admitted for right femoral vein DVT with pulmonary embolism. 2. History of recent back surgery. 3. Parkinson's disease. 4. BPH. 5. Psoriasis. Continue current treatment. Patient scheduled for a right femoral vein thrombectomy. May need to have a Kimberly filter placed as well. Consultation Date/Type/Reason Admit Date/Time Mar 24, 2017 at 18:24 Initial Consult Date 03/25/17 Type of Consultation: Pulmonary Referring Provider: THU MAYES MD 24 HR Interval Summary Free Text/Dictation Patient condition is stable. Denies any shortness of breath, chest pain, coughing wheezing or hemoptysis. Still complains of right thigh pain. General exam; elderly male, awake alert currently in no distress. Exam/Review of Systems Vital Signs Vitals Vital Signs Date Time Temp Pulse Resp B/P Pulse Ox O2 Delivery O2 Flow Rate FiO2 03/28/17 08:49 98.0 64 18 150/70 96 Intake and Output 03/27/17 03/27/17 03/28/17 15:00 23:00 07:00 Intake Total 1920 ml 1020 ml Output Total 800 ml Balance 1920 ml 220 ml Exam HEENT exam; supple neck, no JVD. No lymphadenopathy. Midline trachea. No thyromegaly. Pharynx is clear. Patient has good dentition. Chest examination; clear to auscultation. S1-S2 audible, no murmurs. Regular rhythm. Abdomen exam is; soft, nontender. No organomegaly. Bowel sounds audible. Extremity exam; there is mild right thigh tenderness. No swelling. No peripheral edema. Pulses 1+ bilaterally. PHARMACIST IN CHARGE examination; no focal deficit. Results Result Diagram: 03/28/17 0510 03/28/17 0510 Results 24 hrs Laboratory Tests Test 03/27/17 14:15 03/28/17 05:10 Activated Partial Thromboplast Time 75.7 *H 64.6 H White Blood Count 8.3 Red Blood Count 4.49 L Hemoglobin 13.9 L Hematocrit 41.8 L Mean Corpuscular Volume 93.1 Mean Corpuscular Hemoglobin 31.0 Mean Corpuscular Hemoglobin Concent 33.3 Red Cell Distribution Width 12.7 Platelet Count 241 Mean Platelet Volume 9.1 Neutrophils % 60.4 Lymphocytes % 28.4 Monocytes % 6.7 Eosinophils % 3.7 Basophils % 0.4 Nucleated Red Blood Cells % 0.0 Neutrophils # 5.0 Lymphocytes # 2.4 Monocytes # 0.6 Eosinophils # 0.3 Basophils # 0.0 Nucleated Red Blood Cells # 0.0 Prothrombin Time 20.5 H Prothrombin Time Ratio 1.6 INR International Normalized Ratio 1.74 Sodium Level 138 Potassium Level 4.0 Chloride Level 107 Carbon Dioxide Level 26 Anion Gap 9 Blood Urea Nitrogen 15 Creatinine 0.74 Glucose Level 108 Calcium Level 8.6 Medications Medications Current Medications Dextrose/Sodium Chloride (D5-1/2ns) 1,000 ml @ 40 mls/hr Q24H IV Last administered on 03/28/17t 00:16; Admin Dose 40 MLS/HR; Start 6/2/17 at 21:00 Acetaminophen/ Hydrocodone Bitart ([place] (5/325)) 1 tab Q6H PRN PO MODERATE PAIN LEVEL 4-6; Start 03/24/17 at 20:30 Magnesium Hydroxide (Milk Of Mag) 30 ml DAILY PRN PO CONSTIPATION Last administered on 03/27/17 21:44; Admin Dose 30 ML; Start 03/24/17 at 20:30 Zolpidem Tartrate (Ambien) 5 mg QHS PRN PO SLEEP; Start 03/24/17 at 20:30 Tamsulosin HCl (Flomax) 0.4 mg HS PO Last administered on 03/27/17 21:44; Admin Dose 0.4 MG; Start 03/24/17 at 21:00 Pramipexole (Mirapex) 2.25 mg QAM PO Last administered on 03/27/17 09:52; Admin Dose 2.25 MG; Start 03/25/17 at 09:00 Acetaminophen (Tylenol Tab) 500 mg Q6H PRN PO PAIN LEVEL 1-3 OR FEVER; Start at 21:30 Entacapone (Comtan) 200 mg TID PO Last administered on 03/27/17 21:44; Admin Dose 200 MG; Start 03/24/17 at 23:00 Carbidopa/Levodopa (Sinemet (25/ 100)) 2 tab TID PO Last administered on 21:44; Admin Dose 2 TAB; Start 03/24/17 at 23:00 MATEO TOVAR Mar 28, 2017 10:43
--- NOTE | 2017-03-28 14:00 | PN ---
Date/Time of Note Date/Time of Note DATE: 03/28/17 TIME: 13:55 Assessment/Plan VTE Prophylaxis VTE Prophylaxis Intervention: other (Heparin has been discontinued with surgery pending this afternoon.) Lines/Catheters [facility] Peripheral IV Urinary Cath still in place: No Assessment/Plan Chief Complaint/Hosp Course Doing well thus far with no respiratory compromise following his DVT RLE and his development of a PE. Problems: Assessment/Plan This patient will go to surgery this afternoon. If a guide wire can be advanced into his femoral vein then the thrombectomy along with the Pietro filter will be completed. I have stopped his Coumadin and the plan would be a discharge tomorrow on Apixaban with appropriate loading dosage, as long as we don't run into any post operative complications from the attempted Thrombectomy scheduled for later this afternoon. Dr. Mayes will discuss discharge planning with Dr. Fernandez at the approriate time following today's surgery. Subjective 24 Hr Interval Summary Constitutional: no complaints (No nausea, emesis, SOB, chest pain, fever or chills. No leg pain.) Exam/Review of Systems Vital Signs Vitals Vital Signs Date Time Temp Pulse Resp B/P Pulse Ox O2 Delivery O2 Flow Rate FiO2 03/28/17 08:49 98.0 64 18 150/70 96 Intake and Output 03/27/17 03/27/17 03/28/17 15:00 23:00 07:00 Intake Total 1920 ml 1020 ml Output Total 800 ml Balance 1920 ml 220 ml Exam Respiratory: clear to auscultation Cardiovascular: nl pulses, regular rate and rhythm Gastrointestinal: nl liver, spleen, non-tender, soft Extremities: normal pulses (Right calf 15" left calf 14" Thighs 19" bilaterally) Results Result Diagram: 03/28/17 0510 03/28/17 0510 Results 24 hrs Laboratory Tests Test 03/27/17 14:15 03/28/17 05:10 Activated Partial Thromboplast Time 75.7 *H 64.6 H White Blood Count 8.3 Red Blood Count 4.49 L Hemoglobin 13.9 L Hematocrit 41.8 L Mean Corpuscular Volume 93.1 Mean Corpuscular Hemoglobin 31.0 Mean Corpuscular Hemoglobin Concent 33.3 Red Cell Distribution Width 12.7 Platelet Count 241 Mean Platelet Volume 9.1 Neutrophils % 60.4 Lymphocytes % 28.4 Monocytes % 6.7 Eosinophils % 3.7 Basophils % 0.4 Nucleated Red Blood Cells % 0.0 Neutrophils # 5.0 Lymphocytes # 2.4 Monocytes # 0.6 Eosinophils # 0.3 Basophils # 0.0 Nucleated Red Blood Cells # 0.0 Prothrombin Time 20.5 H Prothrombin Time Ratio 1.6 INR International Normalized Ratio 1.74 Sodium Level 138 Potassium Level 4.0 Chloride Level 107 Carbon Dioxide Level 26 Anion Gap 9 Blood Urea Nitrogen 15 Creatinine 0.74 Glucose Level 108 Calcium Level 8.6 Medications Medications Current Medications Dextrose/Sodium Chloride (D5-1/2ns) 1,000 ml @ 40 mls/hr Q24H IV Last administered on 03/28/17 00:16; Admin Dose 40 MLS/HR; Start 03/24/17 at 21:00 Acetaminophen/ Hydrocodone Bitart ([place] (5/325)) 1 tab Q6H PRN PO MODERATE PAIN LEVEL 4-6; Start 03/24/17 at 20:30 Magnesium Hydroxide (Milk Of Mag) 30 ml DAILY PRN PO CONSTIPATION Last administered on 03/27/17 21:44; Admin Dose 30 ML; Start 03/24/17 at 20:30 Zolpidem Tartrate (Ambien) 5 mg QHS PRN PO SLEEP; Start 03/24/17 at 20:30 Tamsulosin HCl (Flomax) 0.4 mg HS PO Last administered on 03/27/17 21:44; Admin Dose 0.4 MG; Start 03/24/17 at 21:00 Pramipexole (Mirapex) 2.25 mg QAM PO Last administered on 03/27/17 09:52; Admin Dose 2.25 MG; Start 03/25/17 at 09:00 Acetaminophen (Tylenol Tab) 500 mg Q6H PRN PO PAIN LEVEL 1-3 OR FEVER; Start at 21:30 Entacapone (Comtan) 200 mg TID PO Last administered on 03/27/17 21:44; Admin Dose 200 MG; Start 03/24/17 at 23:00 Carbidopa/Levodopa (Sinemet (25/ 100)) 2 tab TID PO Last administered on 21:44; Admin Dose 2 TAB; Start 6/2/17 at 23:00 THU MAYES MD Mar 28, 2017 14:00
[2017-03-28 14:33] LABS: INR 1.55; PROTIME 18.7 Sec (12.2-14.2); PT RATIO 1.5
[2017-03-28 14:34] LABS: PARTIAL THROMBOPLASTIN TIME 59.6 Sec (25.0-35.0)
[2017-03-28] MEDS ORDERED: IODIXANOL LOCM 100 ML BTL ONE (16:03)
[2017-03-28] MEDS ORDERED: LIDOCAINE 1% (MDV) 20 ML INJ ONE (16:03)
[2017-03-28] MEDS ORDERED: ALTEPLASE (CATHFLO) 2 MG INJ CATHETER SCH (17:00)
[2017-03-28] MEDS ORDERED: MIDAZOLAM 1 MG/ML 2 ML INJ ONE (17:03)
[2017-03-28] MEDS ORDERED: FENTAnyl 50 MCG/ML VIAL ONE (17:03)
[2017-03-28] MEDS ORDERED: ONDANSETRON 4 MG INJ ONE (17:23)
[2017-03-28] MEDS ORDERED: DIPHENHYDRAMINE 50 MG INJ ONE (17:47)
--- NOTE | 2017-03-28 18:47 | OPR ---
DATE OF OPERATION: PREOPERATIVE DIAGNOSIS: Deep venous thrombosis and pulmonary embolism. POSTOPERATIVE DIAGNOSIS: Deep venous thrombosis and pulmonary embolism. PROCEDURE PERFORMED: 1. Placement of inferior vena cava filter. 2. Ultrasound guidance into the central vein. SURGEON: Daylin Fernandez MD OPERATIVE TECHNIQUE: The patient was placed in supine position, prepped and draped in usual sterile fashion. Lidocaine 1% was used throughout the operation for local anesthesia. Access was gained i n the left common femoral vein using ultrasound guidance. Guidewire was advanced through without an y difficulty. Subcutaneous tissues dilated. The sheath was advanced over a guidewire. Contrast ve nography was done. Renal veins were at the level of T12. Filter, which was a Door filter, was pl aced below the renal veins and the sheath was removed. During the contrast injection, the patient d id feel nauseated and had very transient bradycardia down to the 50s, so the thrombectomy part of th e procedure was postponed until the patient is more stabilized. Dictated By: DAYLIN PATEL/ANGIE Conf#: [id number] DID#: [id number]
[2017-03-28] MEDS: TAMSULOSIN (SR) 0.4 MG CAP PO SCH (20:13)
[2017-03-29] VITALS (23 sets, daily range): BP systolic 110–178; BP diastolic 45–98; PULSE 56–89; RESP 14–28
[2017-03-29 06:04] LABS: ADD SCAN DIFF NO
[2017-03-29 06:08] LABS: BASOPHILS % 0.4 % (0.0-2.0); EOSINOPHILS # 0.2 10^3/ul (0.0-0.5); EOSINOPHILS % 2.5 % (0.0-7.0); HEMOGLOBIN 14.3 g/dl (14.0-18.0); LYMPHOCYTES # 1.5 10^3/ul (0.8-2.9); LYMPHOCYTES % 18.3 % (15.0-51.0); MEAN CORPUSCULAR HEMOGLOBIN 31.2 pg (29.0-33.0); MEAN CORPUSCULAR HGB CONC 33.3 g/dl (32.0-37.0); MEAN CORPUSCULAR VOLUME 93.9 fl (82.0-101.0); MEAN PLATELET VOLUME 9.1 fl (7.4-10.4); MONOCYTE # 0.7 10^3/ul (0.3-0.9); MONOCYTES % 8.6 % (0.0-11.0); NEUTROPHIL # 5.9 10^3/ul (1.6-7.5); NEUTROPHILS % 69.7 % (39.0-77.0); PLATELET COUNT 243 10^3/UL (140-415); RED BLOOD COUNT 4.58 10^6/ul (4.70-6.10); RED CELL DISTRIBUTION WIDTH 12.7 % (11.5-14.5); WHITE BLOOD COUNT 8.4 10^3/ul (4.8-10.8)
[2017-03-29 06:25] LABS: INR 1.52; PROTIME 18.4 Sec (12.2-14.2); PT RATIO 1.4
[2017-03-29 06:31] LABS: PARTIAL THROMBOPLASTIN TIME 35.9 Sec (25.0-35.0)
[2017-03-29 06:34] LABS: CALCIUM 8.9 mg/dl (8.4-10.2); CREATININE 0.84 mg/dl (0.61-1.24); POTASSIUM 4.2 mmol/L (3.5-5.1)
[2017-03-29] MEDS: ENTACAPONE 200 MG TAB PO SCH ×3 (09:00→20:02)
[2017-03-29] MEDS: PRAMIPEXOLE 0.25 MG TAB PO SCH (09:00)
[2017-03-29] MEDS: CARBIDOPA/LEVODOPA (25/100) TAB PO SCH ×3 (09:00→20:02)
--- NOTE | 2017-03-29 09:24 | PN ---
DATE: 03/29/2017 SUBJECTIVE: Patient has no complaints at this time. He was transferred to the intensive care unit after developing bradycardia during his placement of a vena caval filter on 03/28/2017. There were no other complications. No bleeding. Patient has not complained of shortness of breath or chest pain. OBJECTIVE: GENERAL: Patient is a well-developed, well-nourished male in no acute distress. VITAL SIGNS: Temperature 97.8, pulse is 64 per minute and regular, respirations 19, blood pressure is 115/87, and pulse oximetry 100% on room air. SKIN: No ecchymosis, no petechiae or rashes. HEENT: No mucosal lesions. No scleral icterus. NECK: Supple, no jugular venous distention or thyroid enlargement. CHEST: Clear to auscultation and percussion. No rhonchi, wheezes, rales or rubs. NODES: No palpable lymphadenopathy in lymph node bearing area. ABDOMEN: Soft, no masses, no ascites. EXTREMITIES: Slightly increased circumference of the right lower extremity as opposed to the left. No palpable cords or Homans sign. DIAGNOSTIC DATA: White count 8400, hemoglobin 14.3, hematocrit 43, platelet count 243,000. Creatin ine 0.84, BUN 17. Sodium 142, potassium 4.2. Protime 18.4 seconds, INR of 1.42, PTT 35.9 seconds. ASSESSMENT: 1. Deep vein thrombosis involving the right lower extremity. 2. Multiple pulmonary emboli related to #1. PLAN: Plan at this time is to attempt thrombectomy now that the vena caval filter has been placed. I would agree that the patient can be placed on apixaban immediately following this procedure. Will require the usual loading dose. There are no results available at this time regarding the patient's evaluation for "thrombophilia." Dictated By: AUGUSTO CLARK MD SR/NTS Conf#: [id number] DID#: [id number]
--- NOTE | 2017-03-29 11:09 | CONS ---
Date/Time of Note Date/Time of Note DATE: 03/29/17 TIME: 11:06 Consult Date/Type/Reason Admit Date/Time Mar 24, 2017 at 18:24 Initial Consult Date 03/25/17 Type of Consultation: Pulmonary Ordering Provider: THU MAYES MD Subjective Patient awake alert oriented this morning denies shortness of breath, he is status post IVC filter placement. Objective Vital Signs Date Time Temp Pulse Resp B/P Pulse Ox O2 Delivery O2 Flow Rate FiO2 03/29/17 10:00 69 18 115/84 98 Room Air 03/29/17 07:00 97.8 Intake and Output 03/28/17 03/28/17 03/29/17 14:59 22:59 06:59 Intake Total 70 ml 655 ml 320 ml Output Total 300 ml 445 ml Balance 70 ml 355 ml -125 ml Results/Medications Result Diagram: 03/29/17 0520 03/29/17 0520 Results 24 hrs Laboratory Tests Test 03/28/17 13:15 03/29/17 05:20 Prothrombin Time 18.7 H 18.4 H Prothrombin Time Ratio 1.5 1.4 INR International Normalized Ratio 1.55 1.52 Activated Partial Thromboplast Time 59.6 H 35.9 H White Blood Count 8.4 Red Blood Count 4.58 L Hemoglobin 14.3 Hematocrit 43.0 Mean Corpuscular Volume 93.9 Mean Corpuscular Hemoglobin 31.2 Mean Corpuscular Hemoglobin Concent 33.3 Red Cell Distribution Width 12.7 Platelet Count 243 Mean Platelet Volume 9.1 Neutrophils % 69.7 Lymphocytes % 18.3 Monocytes % 8.6 Eosinophils % 2.5 Basophils % 0.4 Nucleated Red Blood Cells % 0.0 Neutrophils # 5.9 Lymphocytes # 1.5 Monocytes # 0.7 Eosinophils # 0.2 Basophils # 0.0 Nucleated Red Blood Cells # 0.0 Sodium Level 142 Potassium Level 4.2 Chloride Level 109 Carbon Dioxide Level 25 Anion Gap 12 Blood Urea Nitrogen 17 Creatinine 0.84 Glucose Level 114 Calcium Level 8.9 Medications Current Medications Dextrose/Sodium Chloride (D5-1/2ns) 1,000 ml @ 40 mls/hr Q24H IV Last administered on 03/28/17t 20:43; Admin Dose 40 MLS/HR; Start 03/24/17 at 21:00 Acetaminophen/ Hydrocodone Bitart ([place] (5/325)) 1 tab Q6H PRN PO MODERATE PAIN LEVEL 4-6; Start 03/24/17 at 20:30 Magnesium Hydroxide (Milk Of Mag) 30 ml DAILY PRN PO CONSTIPATION Last administered on 03/27/17 21:44; Admin Dose 30 ML; Start 03/24/17 at 20:30 Zolpidem Tartrate (Ambien) 5 mg QHS PRN PO SLEEP; Start 03/24/17 at 20:30 Tamsulosin HCl (Flomax) 0.4 mg HS PO Last administered on 03/28/17 20:13; Admin Dose 0.4 MG; Start 03/24/17 at 21:00 Pramipexole (Mirapex) 2.25 mg QAM PO Last administered on 03/27/17 09:52; Admin Dose 2.25 MG; Start 03/25/17 at 09:00 Acetaminophen (Tylenol Tab) 500 mg Q6H PRN PO PAIN LEVEL 1-3 OR FEVER; Start at 21:30 Entacapone (Comtan) 200 mg TID PO Last administered on 03/28/17 20:38; Admin Dose 200 MG; Start 03/24/17 at 23:00 Carbidopa/Levodopa (Sinemet (25/ 100)) 2 tab TID PO Last administered on 20:13; Admin Dose 2 TAB; Start 03/24/17 at 23:00 Assessment/Plan Chief Complaint/Hosp Course Assessment 1. Acute deep vein thrombosis and pulmonary embolus with significant clot burden status post IVC filter placement pending embolectomy 2. History of immobility secondary to chronic back pain and multiple surgeries 3. Currently hemodynamically stable, consider echocardiogram to evaluate LV and RV function Plan 1. Continue vascular recommendations 2. Resume anticoagulation with factor X A agent. 3. Echocardiogram has been requested. Disposition Stable for transfer to telemetry after thrombectomy. Problems: BRICE ARTIS MD, [facility] Mar 29, 2017 11:09
--- NOTE | 2017-03-29 11:10 | PN ---
Date/Time of Note Date/Time of Note DATE: 03/29/17 TIME: 11:01 Assessment/Plan VTE Prophylaxis VTE Prophylaxis Intervention: other Lines/Catheters IV Catheter Type (from [facility]): Peripheral IV Urinary Cath still in place: No Assessment/Plan Chief Complaint/Hosp Course Doing well thus far with no respiratory compromise following his DVT RLE and his development of a PE. Problems: Assessment/Plan IV heparin per protocol today. Plan is for a thrombectomy to be performed today by Dr. Fernandez. If successful , then we'll switch patient from Heparin over to Apixaban per protocol for DVT and PE: The dosage will be 10 mg Bid x 7 days then follow with 5 mg Bid x 6 months. No bridging is required and therefore once Dr. Fernandez feels that the Heparin can be stopped, the patient will be ready for discharge. Cont'd Hospitalization Reason: Thrombectomy later today followed by change from Heparin to Apixaban Subjective 24 Hr Interval Summary Free Text/Dictation No SOB. NO chest pain. Less pain right anterior thigh. No calf pain. Exam/Review of Systems Vital Signs Vitals Vital Signs Date Time Temp Pulse Resp B/P Pulse Ox O2 Delivery O2 Flow Rate FiO2 03/29/17 10:00 69 18 115/84 98 Room Air 03/29/17 07:00 97.8 Intake and Output 03/28/17 03/28/17 03/29/17 15:00 23:00 07:00 Intake Total 70 ml 695 ml 320 ml Output Total 300 ml 445 ml Balance 70 ml 395 ml -125 ml Exam Constitutional: alert, oriented, well developed Psych: nl mood/affect, no complaints Head: normocephalic Eyes: EOMI, nl conjunctiva Neck: non-tender, supple Respiratory: clear to auscultation, normal air movement Cardiovascular: nl pulses, regular rate and rhythm Gastrointestinal: nl liver, spleen, non-tender, soft Extremities: normal pulses Results No right calf tenderness. Right Calf 15" left calf 14" Negative Emmanuel's sign Result Diagram: 03/29/17 0520 03/29/17 0520 Results 24 hrs Laboratory Tests Test 03/28/17 13:15 03/29/17 05:20 Prothrombin Time 18.7 H 18.4 H Prothrombin Time Ratio 1.5 1.4 INR International Normalized Ratio 1.55 1.52 Activated Partial Thromboplast Time 59.6 H 35.9 H White Blood Count 8.4 Red Blood Count 4.58 L Hemoglobin 14.3 Hematocrit 43.0 Mean Corpuscular Volume 93.9 Mean Corpuscular Hemoglobin 31.2 Mean Corpuscular Hemoglobin Concent 33.3 Red Cell Distribution Width 12.7 Platelet Count 243 Mean Platelet Volume 9.1 Neutrophils % 69.7 Lymphocytes % 18.3 Monocytes % 8.6 Eosinophils % 2.5 Basophils % 0.4 Nucleated Red Blood Cells % 0.0 Neutrophils # 5.9 Lymphocytes # 1.5 Monocytes # 0.7 Eosinophils # 0.2 Basophils # 0.0 Nucleated Red Blood Cells # 0.0 Sodium Level 142 Potassium Level 4.2 Chloride Level 109 Carbon Dioxide Level 25 Anion Gap 12 Blood Urea Nitrogen 17 Creatinine 0.84 Glucose Level 114 Calcium Level 8.9 Medications Medications Current Medications Dextrose/Sodium Chloride (D5-1/2ns) 1,000 ml @ 40 mls/hr Q24H IV Last administered on 03/28/17 20:43; Admin Dose 40 MLS/HR; Start 03/24/17 at 21:00 Acetaminophen/ Hydrocodone Bitart ([place] (5/325)) 1 tab Q6H PRN PO MODERATE PAIN LEVEL 4-6; Start 03/24/17 at 20:30 Magnesium Hydroxide (Milk Of Mag) 30 ml DAILY PRN PO CONSTIPATION Last administered on 03/27/17 21:44; Admin Dose 30 ML; Start 03/24/17 at 20:30 Zolpidem Tartrate (Ambien) 5 mg QHS PRN PO SLEEP; Start 03/24/17 at 20:30 Tamsulosin HCl (Flomax) 0.4 mg HS PO Last administered on 03/28/17 20:13; Admin Dose 0.4 MG; Start 03/24/17 at 21:00 Pramipexole (Mirapex) 2.25 mg QAM PO Last administered on 03/27/17 09:52; Admin Dose 2.25 MG; Start 03/25/17 at 09:00 Acetaminophen (Tylenol Tab) 500 mg Q6H PRN PO PAIN LEVEL 1-3 OR FEVER; Start at 21:30 Entacapone (Comtan) 200 mg TID PO Last administered on 03/28/17 20:38; Admin Dose 200 MG; Start 03/24/17 at 23:00 Carbidopa/Levodopa (Sinemet (/ )) 2 tab TID PO Last administered on t 20:13; Admin Dose 2 TAB; Start 03/24/17 at 23:00 THU MAYES MD Mar 29, 2017 11:10
[2017-03-29] MEDS ORDERED: ONDANSETRON 4 MG INJ ONE (11:36)
[2017-03-29] MEDS ORDERED: DIPHENHYDRAMINE 50 MG INJ ONE (11:36)
[2017-03-29] MEDS ORDERED: METHYLPREDNISOLONE 125 MG INJ ONE (11:37)
[2017-03-29] MEDS ORDERED: IODIXANOL LOCM 100 ML BTL ONE (11:53)
[2017-03-29] MEDS ORDERED: FENTAnyl 50 MCG/ML VIAL ONE ×2 (11:53→12:54)
[2017-03-29] MEDS ORDERED: MIDAZOLAM 1 MG/ML 2 ML INJ ONE (11:53)
[2017-03-29] MEDS ORDERED: ALTEPLASE 10 MG in NS 100 ML CATHETER SCH (12:00)
--- NOTE | 2017-03-29 12:13 | RADRPT ---
Echocardiogram Report Patient Name: AUGUSTO HAAS Gender: Male Date: 1945 Study Date: 29-Mar-2017 Table Keeper: Shiva Slade RDCS Location: [facility] Ref. Physician: BRICE ARTIS Quality: Good Procedures: Transthoracic echocardiogram with complete 2D, M-Mode, and doppler examination. Indications: Acute PE. 2D/M Mode Doppler Measurement Value Normal Ranges Measurement Value Normal Ranges LVIDd 2D 5.0 3.5 - 5.6 cm AV Peak Mendoza 1.5 m/sec LVIDs 2D 2.7 2.1 - 4.1 cm AV Peak PG 8.0 mmHg FS 2D 46.8 % AI Peak PG 81.0 mmHg LVPWd 2D 0.9 0.6 - 1.1 cm AI Peak Mendoza 4.5 m/sec IVSd 2D 1.2 0.6 - 1.1 cm AI PHT 611.0 msec IVS/LVPW 2D 1.4 LVOT Peak Mendoza 1.0 m/sec AoR Diam 2D 3.5 2.0 - 3.7 cm LVOT Peak PG 4.0 mmHg LA/Ao 2D 1 0 - 1 MV E Peak Mendoza 0.6 m/sec EDV 2D 127.0 cm3 MV A Peak Mendoza 0.7 m/sec ESV 2D 19.0 cm3 MV E/A 0.7 LA Dimen 2D 4.0 2.3 - 4.0 cm MV Decel Time 123 msec MV E/A 0.7 TR Peak Mendoza 2.5 m/sec TR Peak PG 26.0 mmHg RVSP 29.0 mmHg Findings Left Ventricle: Normal left ventricular systolic function. Normal left ventricular cavity size. Normal left ventricular wall thickness. Ejection fraction is visually estimated at 60 %. Tissue Doppler/Mitral Doppler indices are consistent with impaired relaxation (Stage I diastolic dysfunction). Right Ventricle: Normal right ventricular size. Normal right ventricular systolic function. Left Atrium: Upper limit of normal left atrial size. Right Atrium: The right atrium is normal in size. Mitral Valve: Normal appearance of the mitral valve. Mild mitral valve regurgitation. Aortic Valve: No hemodynamically significant aortic stenosis by doppler. Aortic cusps appear mildly calcified. Mild aortic valve regurgitation. Tricuspid Valve: Normal appearance of the tricuspid valve. Estimated peak PA systolic pressure 29 mmHg. There is mild tricuspid regurgitation. Pulmonic Valve: Pulmonic valve not well visualized. Pericardium: Normal pericardium with no significant pericardial effusion. Aorta: Normal aortic root. IVC: Normal size and normal respiratory collapse consistent with normal right atrial pressure. Conclusions 1.Normal left ventricular systolic function. Normal left ventricular cavity size. Normal left ventricular wall thickness. Ejection fraction is visually estimated at 60 %. Tissue Doppler/Mitral Doppler indices are consistent with impaired relaxation (Stage I diastolic dysfunction). 2.Normal right ventricular size. Normal right ventricular systolic function. 3.Upper limit of normal left atrial size. 4.The right atrium is normal in size. 5.Mild mitral valve regurgitation. 6.No hemodynamically significant aortic stenosis by doppler. Mild aortic valve regurgitation. 7.Estimated peak PA systolic pressure 29 mmHg. There is mild tricuspid regurgitation. 8.Normal pericardium with no significant pericardial effusion. Electronically Signed By: Jarett Brizuela 29-Mar-2017 12:13:27 -0700 Patient Name: AUGUSTO HAAS Study Date: 29-Mar-2017 [id number]
[2017-03-29] MEDS ORDERED: AMLODIPINE 5 MG TAB PO SCH (17:30)
--- NOTE | 2017-03-29 19:28 | PN ---
Date/Time of Note Date/Time of Note DATE: 03/29/17 TIME: 19:21 Assessment/Plan VTE Prophylaxis VTE Prophylaxis Intervention: other Lines/Catheters IV [facility] Peripheral IV Urinary Cath still in place: No Assessment/Plan Chief Complaint/Hosp Course Doing well thus far with no respiratory compromise following his DVT RLE and his development of a PE. Problems: Assessment/Plan Dr. Mayes will hold off on ordering the Apixaban until he speaks to Dr. Fernandez. Will get a UA and watch for any further signs of hematuria. Amlodopine 5 mg ordered if systolic bp exceeds 160. Hopefully we can get this patient on Apixaban and begin to plan for Discharge by Monday. Cont'd Hospitalization Reason: PE, DVT, S/P Thrombectomy right leg Subjective 24 Hr Interval Summary Constitutional: no complaints Gastrointestinal: nausea (Tolerated thrombectomy procedure well. Feels nauseated at this time. BP was a little elevated. No SOB. He passed some blood in his urine.) Genitourinary: dysuria (Denies dysuria and flank pain), flank pain Neurologic: dizziness, headache Exam/Review of Systems Vital Signs Vitals Vital Signs Date Time Temp Pulse Resp B/P Pulse Ox O2 Delivery O2 Flow Rate FiO2 03/29/17 18:00 69 17 151/88 97 Room Air 03/29/17 15:00 97.8 Intake and Output 03/28/17 03/28/17 03/29/17 15:00 23:00 07:00 Intake Total 70 ml 695 ml 320 ml Output Total 300 ml 445 ml Balance 70 ml 395 ml -125 ml Exam Neck: non-tender, supple Respiratory: clear to auscultation Cardiovascular: regular rate and rhythm Extremities: normal pulses (Negative calf tenderness) Results Result Diagram: 03/29/17 0520 03/29/17 0520 Results 24 hrs Laboratory Tests Test 03/29/17 05:20 White Blood Count 8.4 Red Blood Count 4.58 L Hemoglobin 14.3 Hematocrit 43.0 Mean Corpuscular Volume 93.9 Mean Corpuscular Hemoglobin 31.2 Mean Corpuscular Hemoglobin Concent 33.3 Red Cell Distribution Width 12.7 Platelet Count 243 Mean Platelet Volume 9.1 Neutrophils % 69.7 Lymphocytes % 18.3 Monocytes % 8.6 Eosinophils % 2.5 Basophils % 0.4 Nucleated Red Blood Cells % 0.0 Neutrophils # 5.9 Lymphocytes # 1.5 Monocytes # 0.7 Eosinophils # 0.2 Basophils # 0.0 Nucleated Red Blood Cells # 0.0 Prothrombin Time 18.4 H Prothrombin Time Ratio 1.4 INR International Normalized Ratio 1.52 Activated Partial Thromboplast Time 35.9 H Sodium Level 142 Potassium Level 4.2 Chloride Level 109 Carbon Dioxide Level 25 Anion Gap 12 Blood Urea Nitrogen 17 Creatinine 0.84 Glucose Level 114 Calcium Level 8.9 Medications Medications Current Medications Dextrose/Sodium Chloride (D5-1/2ns) 1,000 ml @ 40 mls/hr Q24H IV Last administered on 03/28/17 20:43; Admin Dose 40 MLS/HR; Start 03/24/17 at 21:00 Acetaminophen/ Hydrocodone Bitart ([place] (5/325)) 1 tab Q6H PRN PO MODERATE PAIN LEVEL 4-6; Start 03/24/17 at 20:30 Magnesium Hydroxide (Milk Of Mag) 30 ml DAILY PRN PO CONSTIPATION Last administered on 03/27/17 21:44; Admin Dose 30 ML; Start 03/24/17 at 20:30 Zolpidem Tartrate (Ambien) 5 mg QHS PRN PO SLEEP; Start 03/24/17 at 20:30 Tamsulosin HCl (Flomax) 0.4 mg HS PO Last administered on 03/28/17 20:13; Admin Dose 0.4 MG; Start 03/24/17 at 21:00 Pramipexole (Mirapex) 2.25 mg QAM PO Last administered on 03/27/17 09:52; Admin Dose 2.25 MG; Start 03/25/17 at 09:00 Acetaminophen (Tylenol Tab) 500 mg Q6H PRN PO PAIN LEVEL 1-3 OR FEVER; Start at 21:30 Entacapone (Comtan) 200 mg TID PO Last administered on 03/29/17 16:59; Admin Dose 200 MG; Start 03/24/17 at 23:00 Carbidopa/Levodopa (Sinemet (25/ 100)) 2 tab TID PO Last administered on 15:05; Admin Dose 2 TAB; Start 03/24/17 at 23:00 Amlodipine Besylate (Norvasc) 5 mg DAILY PO ; Start 03/29/17 at 17:30 THU MAYES MD Mar 29, 2017 19:28
[2017-03-29] MEDS: AMLODIPINE 5 MG TAB PO SCH ×2 (19:30→20:11)
[2017-03-29] MEDS: TAMSULOSIN (SR) 0.4 MG CAP PO SCH (20:02)
[2017-03-29] MEDS: DEXTROSE 5%-0.45% NACL 1,000 ML IV SCH (21:00)
[2017-03-30] VITALS (17 sets, daily range): BP systolic 89–146; BP diastolic 53–71; PULSE 75–94; RESP 16–22
[2017-03-30] MEDS: APIXABAN 5 MG TABLET PO SCH ×2 (01:11→09:03)
[2017-03-30 06:53] LABS: ADD SCAN DIFF NO
[2017-03-30 06:57] LABS: BASOPHILS % 0.3 % (0.0-2.0); EOSINOPHILS # 0.2 10^3/ul (0.0-0.5); EOSINOPHILS % 1.5 % (0.0-7.0); HEMOGLOBIN 14.3 g/dl (14.0-18.0); LYMPHOCYTES # 1.4 10^3/ul (0.8-2.9); MEAN CORPUSCULAR HEMOGLOBIN 30.6 pg (29.0-33.0); MEAN CORPUSCULAR HGB CONC 32.5 g/dl (32.0-37.0); MEAN CORPUSCULAR VOLUME 94.2 fl (82.0-101.0); MEAN PLATELET VOLUME 9.4 fl (7.4-10.4); MONOCYTE # 1.2 10^3/ul (0.3-0.9); MONOCYTES % 9.9 % (0.0-11.0); NEUTROPHIL # 8.9 10^3/ul (1.6-7.5); PLATELET COUNT 207 10^3/UL (140-415); RED BLOOD COUNT 4.67 10^6/ul (4.70-6.10); WHITE BLOOD COUNT 11.7 10^3/ul (4.8-10.8)
[2017-03-30 07:26] LABS: CALCIUM 9.2 mg/dl (8.4-10.2); CREATININE 1.08 mg/dl (0.61-1.24); INR 1.74; POTASSIUM 3.9 mmol/L (3.5-5.1); PROTIME 20.5 Sec (12.2-14.2); PT RATIO 1.6
[2017-03-30] MEDS ORDERED: ALTEPLASE 10 MG in SOD CHLORIDE 0.9% 100 ML CATHETER SCH (09:00)
[2017-03-30] MEDS: ENTACAPONE 200 MG TAB PO SCH ×2 (09:03→15:12)
[2017-03-30] MEDS: CARBIDOPA/LEVODOPA (25/100) TAB PO SCH ×2 (09:03→15:12)
[2017-03-30] MEDS: AMLODIPINE 5 MG TAB PO SCH (09:04)
[2017-03-30] MEDS: PRAMIPEXOLE 0.25 MG TAB PO SCH (09:05)
[2017-03-30] MEDS: MAGNESIUM HYDROXIDE 30ML CUP PO PRN (10:36)
--- NOTE | 2017-03-30 11:13 | CONS ---
Date/Time of Note Date/Time of Note DATE: 03/30/17 TIME: 11:12 Consult Date/Type/Reason Admit Date/Time Mar 24, 2017 at 18:24 Initial Consult Date 03/25/17 Type of Consultation: Pulmonary Ordering Provider: THU MAYES MD Subjective Patient comfortable following thrombectomy denies chest pain or shortness of breath Objective Vital Signs Date Time Temp Pulse Resp B/P Pulse Ox O2 Delivery O2 Flow Rate FiO2 03/30/17 08:00 85 03/30/17 08:00 98.5 20 106/61 99 Room Air Intake and Output 03/29/17 03/29/17 03/30/17 14:59 22:59 06:59 Intake Total 320 ml 670 ml 370 ml Output Total 400 ml 425 ml 300 ml Balance -80 ml 245 ml 70 ml Exam GENERAL: Well-nourished well-developed gentleman comfortable at rest no acute distress VITAL SIGNS: per chart NECK: Supple. No JVD or lymphadenopathy. CARDIAC EXAM: S1, S2. No added sounds or murmurs. CHEST: clear bilaterally, No added sounds, rales or wheezes ABDOMEN: Soft, nontender. No guarding or rebound. EXTREMITIES: No cyanosis, clubbing or edema. NEUROLOGIC: Generalized weakness. No focal deficits. Results/Medications Result Diagram: 03/30/17 0559 03/30/17 0559 Results 24 hrs Laboratory Tests Test 03/30/17 05:59 White Blood Count 11.7 #H Red Blood Count 4.67 L Hemoglobin 14.3 Hematocrit 44.0 Mean Corpuscular Volume 94.2 Mean Corpuscular Hemoglobin 30.6 Mean Corpuscular Hemoglobin Concent 32.5 Red Cell Distribution Width 13.0 Platelet Count 207 Mean Platelet Volume 9.4 Neutrophils % 76.0 Lymphocytes % 12.0 L Monocytes % 9.9 Eosinophils % 1.5 Basophils % 0.3 Nucleated Red Blood Cells % 0.0 Neutrophils # 8.9 H Lymphocytes # 1.4 Monocytes # 1.2 H Eosinophils # 0.2 Basophils # 0.0 Nucleated Red Blood Cells # 0.0 Prothrombin Time 20.5 H Prothrombin Time Ratio 1.6 INR International Normalized Ratio 1.74 Sodium Level 140 Potassium Level 3.9 Chloride Level 107 Carbon Dioxide Level 27 Anion Gap 10 Blood Urea Nitrogen 18 Creatinine 1.08 Glucose Level 119 Calcium Level 9.2 Medications Current Medications Dextrose/Sodium Chloride (D5-1/2ns) 1,000 ml @ 40 mls/hr Q24H IV Last administered on 03/28/17 20:43; Admin Dose 40 MLS/HR; Start 03/24/17 at 21:00 Acetaminophen/ Hydrocodone Bitart ([place] (5/325)) 1 tab Q6H PRN PO MODERATE PAIN LEVEL 4-6; Start 03/24/17 at 20:30 Magnesium Hydroxide (Milk Of Mag) 30 ml DAILY PRN PO CONSTIPATION Last administered on 03/30/17 10:36; Admin Dose 30 ML; Start 03/24/17 at 20:30 Zolpidem Tartrate (Ambien) 5 mg QHS PRN PO SLEEP; Start 03/24/17 at 20:30 Tamsulosin HCl (Flomax) 0.4 mg HS PO Last administered on 03/29/17 20:02; Admin Dose 0.4 MG; Start 03/24/17 at 21:00 Pramipexole (Mirapex) 2.25 mg QAM PO Last administered on 03/30/17 09:05; Admin Dose 2.25 MG; Start 03/25/17 at 09:00 Acetaminophen (Tylenol Tab) 500 mg Q6H PRN PO PAIN LEVEL 1-3 OR FEVER; Start at 21:30 Entacapone (Comtan) 200 mg TID PO Last administered on 03/30/17 09:03; Admin Dose 200 MG; Start 03/24/17 at 23:00 Carbidopa/Levodopa (Sinemet (25/ 100)) 2 tab TID PO Last administered on 09:03; Admin Dose 2 TAB; Start 03/24/17 at 23:00 Amlodipine Besylate (Norvasc) 5 mg DAILY PO Last administered on 03/30/17 09:04 ; Admin Dose 5 MG; Start 03/29/17 at 19:30 Apixaban (Eliquis) 10 mg BID PO Last administered on 03/30/17 09:03; Admin Dose 10 MG; Start 03/30/17 at 01:00 Assessment/Plan Chief Complaint/Hosp Course Assessment 1. Acute deep vein thrombosis and pulmonary embolus with significant clot burden status post IVC filter placement and thrombectomy 2. History of immobility secondary to chronic back pain and multiple surgeries 3. Currently hemodynamically stable, consider echocardiogram to evaluate LV and RV function Plan 1. Continue vascular recommendations 2. Resume anticoagulation with factor X A agent. 3. Echocardiogram shows preserved ejection fraction, mild TR and mild pulmonary hypertension. Stage I diastolic dysfunction. Disposition Stable for transfer to telemetry Problems: BRICE ARTIS MD, [facility] Mar 30, 2017 11:13
[2017-03-30 12:57] LABS: ADD UMIC YES; URINE BILIRUBIN (Dip) 3+ (NEGATIVE); URINE BLOOD (Dip) 3+ (NEGATIVE); URINE KETONES (Dip) 15 (NEGATIVE); URINE LEUKOCYTE ESTERASE (Dip) 2+ (NEGATIVE); URINE NITRITE (Dip) POSITIVE (NEGATIVE); URINE TOTAL PROTEIN (Dip) 4+ (NEGATIVE); URINE UROBILINOGEN (Dip) 4.0 E.U./dL (0.1-1.0)
[2017-03-30 13:01] LABS: URINE COLOR RED (YELLOW)
[2017-03-30 13:18] LABS: ICTOTEST NEGATIVE (NEGATIVE)
[2017-03-30 13:19] LABS: BACTERIA,URINE MANY; URINE RBCS 0-2 /HPF (0)
--- NOTE | 2017-03-30 13:42 | OPR ---
DATE OF OPERATION: 03/29/2017 PREOPERATIVE DIAGNOSIS: Deep venous thrombosis, right lower extremity. POSTOPERATIVE DIAGNOSIS: Deep venous thrombosis, right lower extremity. OPERATIONS PERFORMED: 1. Thrombectomy, right femoral vein. 2. Thrombectomy, right popliteal vein. 3. Thrombectomy, right iliac vein. 4. Thrombectomy inferior vena cava. 5. Balloon angioplasty 12 x 40 mm balloon, right popliteal vein, femoral vein, iliac vein, and the inferior vena cava. 6. Catheter introduction into the superior vena cava. 7. Inferior venacavogram. 8. Interpretation and supervision of the inferior vena cavogram 9. Right lower extremity venogram. 10. Interpretation and supervision of the lower extremity venogram. 11. Ultrasound guidance into the central vein. SURGEON: Daylin Fernandez MD ANESTHESIA: Local plus IV sedation. INFORMED CONSENT: Risks, benefits, complications, alternative therapies, high-risk nature of the op eration were fully explained to the patient and the family, consent obtained. OPERATIVE TECHNIQUE: Patient was placed in the prone position, prepped and draped in usual sterile fashion. Access was gained into the popliteal vein, just to posterior knee and a 6-[place]amb[place] sheath wa s advanced without any difficulties. Venogram was done which showed complete thrombosis of the popl iteal vein, femoral vein extending into the iliac vein and some clot in the inferior vena cava. The patient was given 5000 units of IV heparin. AngioJet machine was brought in, 10 mg of TPA was inje cted into the clotted area in the popliteal vein, femoral vein, iliac vein, and vena cava. Balloon angioplasty was performed, breaking the clot. We then waited for 20 minutes, and thrombectomy was performed again using the AngioJet machine in the thrombectomy mode, followed by angioplasty again u sing a 12 x 40 mm balloon off the popliteal vein, femoral vein, iliac vein, and inferior vena cava, A catheter was also passed into the inferior vena cava and inferior venacavogram was done. No clot was seen in the vena cava after the thrombectomy was done. About 90% on the clot in the left femor al vein, popliteal vein and the iliac vein was cleared. A small amount of clot was remaining in the common femoral vein which was then thrombectomized again. The final venogram revealed almost compl ete resolution of the clot. The catheter was then removed and the skin site was closed using a sing le 3-0 Vicryl suture in a [id number] fashion. Patient tolerated procedure well. Dictated By: DAYLIN PATEL/ANGIE Conf#: [id number] DID#: [id number]
--- NOTE | 2017-03-30 14:44 | PN ---
Date/Time of Note Date/Time of Note DATE: 03/30/17 TIME: 14:42 Assessment/Plan VTE Prophylaxis VTE Prophylaxis Intervention: other (Eliquis) Lines/Catheters [facility] ([facility]): Peripheral IV Urinary Cath still in place: No Assessment/Plan Chief Complaint/Hosp Course 71 yo man with lumbar back surgery about three weeks ago and who now is hospitalized for right DVT and pulmonary emboli. He is currently on heparin and Coumadin. There are plans for assessment by vascular surgery and pulmonary medicine pending. Presently he feels well and is not dyspneic or in pain. I am asked to assess for risk factors. Problems: Assessment/Plan Thrombectomy and IVC filter placed. Pt is on Eliquis. He seems comfortable and is anxious to leave the hospital. If discharged, I asked him to call next week for the results of the thrombophilia evaluation. Subjective 24 Hr Interval Summary Free Text/Dictation Pt is sitting up and having lunch Exam/Review of Systems Vital Signs Vitals Vital Signs Date Time Temp Pulse Resp B/P Pulse Ox O2 Delivery O2 Flow Rate FiO2 03/30/17 12:25 75 03/30/17 12:20 98.5 18 105/58 91 03/30/17 11:00 Room Air Intake and Output 03/29/17 03/29/17 03/30/17 15:00 23:00 07:00 Intake Total 320 ml 670 ml 370 ml Output Total 400 ml 425 ml 300 ml Balance -80 ml 245 ml 70 ml Exam Constitutional: alert, oriented, well developed Head: normocephalic Eyes: nl conjunctiva ENMT: nl external ears & nose Neck: supple Respiratory: clear to auscultation Cardiovascular: regular rate and rhythm Gastrointestinal: soft Extremities: other Results Result Diagram: 03/30/17 0559 03/30/17 0559 Results 24 hrs Laboratory Tests Test 03/29/17 20:00 03/30/17 05:59 Urine Color RED Urine Clarity CLOUDY H Urine pH 8.5 Urine Specific [place] 1.010 Urine Ketones 15 Urine Nitrite POSITIVE H Urine Bilirubin 3+ H Urine Ictotest NEGATIVE Urine Urobilinogen 4.0 E.U./dL H Urine Leukocyte Esterase 2+ H Urine Microscopic RBC 0-2 Urine Microscopic WBC 2-5 Urine Bacteria MANY Urine Hemoglobin 3+ H Urine Glucose 0.1% H Urine Total Protein 4+ H White Blood Count 11.7 #H Red Blood Count 4.67 L Hemoglobin 14.3 Hematocrit 44.0 Mean Corpuscular Volume 94.2 Mean Corpuscular Hemoglobin 30.6 Mean Corpuscular Hemoglobin Concent 32.5 Red Cell Distribution Width 13.0 Platelet Count 207 Mean Platelet Volume 9.4 Neutrophils % 76.0 Lymphocytes % 12.0 L Monocytes % 9.9 Eosinophils % 1.5 Basophils % 0.3 Nucleated Red Blood Cells % 0.0 Neutrophils # 8.9 H Lymphocytes # 1.4 Monocytes # 1.2 H Eosinophils # 0.2 Basophils # 0.0 Nucleated Red Blood Cells # 0.0 Prothrombin Time 20.5 H Prothrombin Time Ratio 1.6 INR International Normalized Ratio 1.74 Sodium Level 140 Potassium Level 3.9 Chloride Level 107 Carbon Dioxide Level 27 Anion Gap 10 Blood Urea Nitrogen 18 Creatinine 1.08 Glucose Level 119 Calcium Level 9.2 Medications Medications Current Medications Dextrose/Sodium Chloride (D5-1/2ns) 1,000 ml @ 40 mls/hr Q24H IV Last administered on 03/28/17 20:43; Admin Dose 40 MLS/HR; Start 03/24/17 at 21:00 Acetaminophen/ Hydrocodone Bitart ([place] (5/325)) 1 tab Q6H PRN PO MODERATE PAIN LEVEL 4-6; Start 03/24/17 at 20:30 Magnesium Hydroxide (Milk Of Mag) 30 ml DAILY PRN PO CONSTIPATION Last administered on 03/30/17 10:36; Admin Dose 30 ML; Start 03/24/17 at 20:30 Zolpidem Tartrate (Ambien) 5 mg QHS PRN PO SLEEP; Start 03/24/17 at 20:30 Tamsulosin HCl (Flomax) 0.4 mg HS PO Last administered on 03/29/17 20:02; Admin Dose 0.4 MG; Start 03/24/17 at 21:00 Pramipexole (Mirapex) 2.25 mg QAM PO Last administered on 03/30/17 09:05; Admin Dose 2.25 MG; Start 03/25/17 at 09:00 Acetaminophen (Tylenol Tab) 500 mg Q6H PRN PO PAIN LEVEL 1-3 OR FEVER; Start at 21:30 Entacapone (Comtan) 200 mg TID PO Last administered on 03/30/17 09:03; Admin Dose 200 MG; Start 03/24/17 at 23:00 Carbidopa/Levodopa (Sinemet (25/ )) 2 tab TID PO Last administered on 09:03; Admin Dose 2 TAB; Start 03/24/17 at 23:00 Amlodipine Besylate (Norvasc) 5 mg DAILY PO Last administered on 03/30/17 09:04 ; Admin Dose 5 MG; Start 03/29/17 at 19:30 Apixaban (Eliquis) 10 mg BID PO Last administered on 03/30/17 09:03; Admin Dose 10 MG; Start 03/30/17 at 01:00 FAHEEM MARTÍNEZ MD Mar 30, 2017 14:44
[2017-03-30] MEDS ORDERED: APIXABAN 5 MG TABLET PO ONE (16:30)
[2017-03-30] MEDS ORDERED: AMLO2.5T78 PO (17:09)
[2017-03-30] MEDS ORDERED: APIX5TAB PO (17:10)
[2017-03-30] MEDS ORDERED: APIX2.5T PO (17:10)
--- NOTE | 2017-03-30 18:29 | PDOCDIS ---
Discharge Instructions CONDITION Patient Condition: Good HOME CARE INSTRUCTIONS: Diet Instructions: Reduced SodiumSpecial Diet: Regular ACTIVITY: Activity Restrictions: Avoid heavy lifting FOLLOW UP/APPOINTMENTS Appointments see Dr. Mayes in one week in the office, 04/06/2017 REFERRALS Other Referrals Call Dr. Fernandez's office for follow up consult in 1-2 weeks. Also needs to have ascending aorta evaluation repeated in [address] scan and follow up visit with the heart surgeon. Keep F/u appointments with Dr. Jacob for his spine. THU MAYES MD Mar 30, 2017 18:29
[2017-03-30] MEDS ORDERED: APIXABAN 5 MG TABLET PO STA (18:33)
[2017-03-31] MEDS ORDERED: AMLODIPINE 2.5 MG TAB PO SCH (09:00)
--- NOTE | 2017-04-03 07:22 | DS ---
DATE OF ADMISSION: 03/24/2017 DATE OF DISCHARGE: 03/30/2017 CHIEF COMPLAINT: Swelling of the right calf consistent with a deep vein thrombosis and subsequent d evelopment of a pulmonary embolism. OPERATIONS PERFORMED: Included placement of a [place] filter in the inferior vena cava and a thr ombectomy of the right common femoral, femoral vein and popliteal vein of the right lower extremity. CONSULTATIONS: Behavioral [facility] Rn, Dr. Ga in Hematology and Dr. Fernandez from a cardiovascular p erspective. COMPLICATIONS: The patient did develop a pulmonary embolism but no other sequelae and no developmen t of any infections during the course of hospitalization. BRIEF HISTORY: The patient is a very well known to me 71-year-old male who presented to my office o n Monday afternoon 03/24/2017 with a complaint of swelling of his right leg. The patient had had sw elling on and off for the past 2 weeks or so, and then 3 days prior to presenting to my office, the swelling became persistent and was no longer varying in degree of severity. The patient is 71 years of age. 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 The patient indicated that he was having some minimal pain i n his right calf and right thigh and there was some numbness in his right foot. There was no shortn ess of breath, no difficulty breathing, no orthopnea or PND. No fever, chills, night sweats, nausea , vomiting or diarrhea. No abdominal pain. The patient is stable postoperative redo decompressive lumbar laminectomy performed on 03/01/2017 at [facility] by Dr. Ryan Jacob and ____ Junior. The lumbar laminectomy was performed at L3 through S1 with microdiskectomy also at L4-L5 on the right side. The patient had a prior history of a central decompressive laminectomy at L3-L4 with a microdiskecto my at L3-L4 on the right side on 09/23/2013. He then had to undergo a redo right hemilaminectomy at L4-L5 on 01/02 at [facility] by Dr. Ryan Jacob. The patient had significant p ostoperative issues with severe pain in his lower back and into his right leg, which is why he retur naz for the redo revision surgery on 03/01/2017. The patient was noted on MRI scan to have spinal s tenosis L3 through S1 and a recurrent disk herniation at L4-L5 on the right side. When seen by myself on 03/24/2017 in the office, the patient was noted to have swelling of his right calf and a positive Homans sign. I sent him for a stat ultrasound at the radiology department at [facility]. The radiologist called me back Monday afternoon 03/24/2017 indicating that the ultrasound was positive for acute deep vein thrombosis of the right lower extremity involvi ng the common femoral vein, femoral vein and the popliteal veins on the right lower extremity. The patient was therefore hospitalized at [facility] on a stat basis with a plan to gi ve him IV heparin and bridge him over to oral Coumadin. PAST MEDICAL HISTORY ALLERGIES TO MEDICATIONS: None. MEDICATIONS: At the time of the admission, his medications included: 1. Tamsulosin ER 0.4 mg once a day. 2. Mirapex ER 2.25 mg extended release once a day. 3. Coenzyme-Q 200 mg daily. 4. Stalevo 200/50/200 one tablet 3 times a day for his Parkinson disease. SURGICAL HISTORY: The patient's past surgeries included the lumbar laminectomy x3 as noted above. He has also had previous hernia repair in the right inguinal region. PHYSICAL EXAMINATION: GENERAL: A well-developed, well-nourished male in no acute distress at the time that I saw him even though his right lower extremity was swollen on 03/24/2017. VITAL SIGNS: His blood pressure was 136/86, pulse of 80, respirations 16, temperature 98.6. Height 5 feet 6 inches. Weight 198 pounds. BMI 31.96. The patient's pulse oximetry on room air was 97%. CHEST: Clear to auscultation. HEART: Regular rate, rhythm. No S3, S4 murmur noted. ABDOMEN: Soft. Bowel sounds within normal limits. No visceromegaly noted. No rigidity, guarding or rebound tenderness noted of the abdomen. NEUROLOGIC: The patient was alert and oriented to time, place and person. His neurological exam wa s nonfocal. Cranial nerves II through XII are grossly within normal limits. There were no focal de ficits noted. EXTREMITIES: The patient's right lower extremity did show a positive Homans sign. He had a right c mattehw at 15-1/2 inches compared to a left calf of 14 inches at greatest circumference. HOSPITAL COURSE: The diagnoses of this patient included the followin. Acute deep vein thrombosis of the right lower extremity. 2. The ultrasound revealed evidence that the clot was extending up into the patient's right thigh i nto the common femoral vein above the knee. The patient did undergo a ventilation/perfusion scan wh ich did reveal evidence of pulmonary emboli. The diagnostic studies that were done during the course of hospitalization included the CT angiogram . The CT angiogram was done on Monday03/25/2017, and there were multiple filling defects extendi ng into the pulmonary arteries of the right upper lobe, right middle lobe, right lower lobe. There were no left-sided filling defects noted. There was some coronary artery atherosclerotic plaque not ed and calcification without evidence of any dissection. There was some borderline aneurysmal dilat ation noted of the ascending thoracic aorta at 4.1 cm. There was no evidence of cardiomegaly. In richard hawkins, the CT angio was consistent with multiple right-sided pulmonary emboli. As noted, the ultra sound which was done as an outpatient did reveal evidence of deep vein thrombosis involving the righ t common femoral, femoral and popliteal veins. The patient had consultations performed by Dr. Frankie Ga. The cvir tech did a workup to naun e sure that the patient did not have either congenital or pro-thromboembolic state. That workup is in process, and we most likely will not get the final test results until after the patient's dischar ge. The patient was also seen by Dr. Mariano Cole for [facility]. He felt that the patien t did not need to be transferred into the intensive care unit and should do well on IV heparin and o ral Coumadin. He also suggested that if the patient is not a fall risk, we might want to consider t ransferring this patient to a factor X man such as Eliquis as opposed to Coumadin at the time of discharge. The patient from a pulmonary perspective was stable throughout the entire course of hos pitalization. In addition, the patient was seen by the cardiovascular surgeon Dr. Antoni Fernandez. He felt that the patient should undergo placement of a Pietro filter and a thrombectomy of his right common femoral, femoral and popliteal veins. The patient was taken to the operating room on Wednesday 03/28. A [place] filter was inserted with out any complications. However, when they injected the radiopaque dye to perform the thrombectomy, the patient got lightheaded, his blood pressure dropped, and his heart rate dropped into a bradycard ia arrhythmia. Therefore, the procedure was stopped. The patient was given steroids to block the r eaction to the radiopaque dye. On Thursday 03/29, the patient did successfully undergo the thrombe ctomy. IV TPA was given, and Dr. Fernandez indicated he got tremendous flow back after the clots we re cleared out of the common femoral, femoral and right popliteal veins. The patient tolerated the procedure well with no complications. He was placed in the intensive care unit for 24 hours on 05/2017. His pulses were excellent and he had no pain, and therefore we transferred him to the floor . On the afternoon of 03/30/2017, the patient was ready for discharge to his home. We did switch t he patient from IV heparin over to oral Eliquis at the time of discharge. The patient will go home on Eliquis 5 mg tablet 2 tablets twice a day, which is 10 mg twice a day for 1 week, and then will c ut him down to 5 mg twice a day for 6 months. The patient will follow up with Dr. Fernandez in his office in 2 to 3 weeks. There has been no sign of any bleeding at the entry point on his left femor al where the catheter was inserted to perform the procedure. The patient will see Dr. Ga in his office as an outpatient to follow up on the hematology workup to make sure that he doesn't have a thrombolic state. The patient also will follow up with Dr. Jacob for his lumbar spine in a few weeks' time. ISCHARGE MEDICATIONS: Other medications at the time of discharge included same medications that he was on when he was admitted to the hospital. Those medications included the followin. Tamsulosin 0.4 mg extended release 1 daily. 2. Mirapex 2.25 mg 1 daily. 3. Coenzyme-Q 1 daily. 4. Stalevo 200/200/____ one tablet oral route 3 times a day. 5. Eliquis 5 mg 2 tablets twice a day for 1 week to be followed by 5 mg twice a day for 6 months. 6. In addition, I did start the patient on amlodipine 2.5 mg once a day to get better blood pressur e control. On the CT angiogram was borderline aneurysmal dilatation of the ascending aorta. The patient will f ollow up with Dr. Fernandez as an outpatient on that issue. He will most likely opt to have a repea t CT scan done in 6 months. Very strict excellent control of his blood pressure will be necessary t o prevent that from progressing to a full-blown aneurysm. LABORATORY STUDIES DURING THE COURSE OF HOSPITALIZATION: The patient came in with a white count on 03/24 of 9100, hemoglobin 14.0, hematocrit 40.8. The chemistry panel was completely stable at the t sylvie of admission. At the time of discharge, white count had gone up slightly to 11,700, hemoglobin 14.3, hematocrit 44.0. During the course of heparinization, of course we kept his PTT at 2 to 3 ashley es normal. Of course, this was discontinued following the surgical procedure on Monday, 03/29. We had placed the patient on Coumadin but decided to switch him over to Eliquis, and therefore no fu rther INRs needed to be done after the first 4 days of hospitalization. Chemistry panel: Sodium 14 3, potassium 4.1, chloride of 108, bicarbonate 28, BUN of 24, creatinine of 0.86. The patient's fahad ctrolytes, BUN, creatinine all remained stable throughout the course of hospitalization. Blood suga rs ranged from 101 to 119. Transaminases on the liver were normal. In summary, this patient was discharged on 03/30. He will follow up in my office in 1 week's time. I have listed out the medications above that he went home on. Activity level, we simply asked him to avoid operating any major machinery or anything where he might fall or cut himself. Otherwise, h e can go about normal activities. Low-sodium diet and no other instructions really required. FINAL DISCHARGE DIAGNOSES: Included: 1. Acute deep vein thrombosis of the right common femoral, right femoral, right popliteal veins. 2. CT angiogram evidence of pulmonary embolism affecting the right lung upper mid and lower lobes. CHRONIC DIAGNOSES: Includin. Parkinson disease. 2. Mild essential hypertension. 3. Status post surgery x3 for displacement of lumbosacral intervertebral disks as documented above. Dictated By: THU HAMILTON/ANGIE Conf#: [id number] DID#: [id number]
== END 2017-03-30 19:11 | disposition home or self-care (01) | DRG 271 ==
LOC: MS1 18:24 → ICU 03-28 17:59 → TEL 03-30 11:35
PROVIDERS: ADMIT Family Medicine Adult Medicine; ATTEND Family Medicine Adult Medicine
PROC: 06H03DZ Insertion of Intraluminal Device into Inferior Vena Cava, Percutaneous Approach (ICD-10-PCS; 2017-03-28)
PROC: 067M3ZZ Dilation of Right Femoral Vein, Percutaneous Approach (ICD-10-PCS; 2017-03-29)
PROC: 06CF3ZZ Extirpation of Matter from Right External Iliac Vein, Percutaneous Approach (ICD-10-PCS; 2017-03-29)
PROC: 06CY3ZZ Extirpation of Matter from Lower Vein, Percutaneous Approach (ICD-10-PCS; 2017-03-29)
PROC: 067Y3ZZ Dilation of Lower Vein, Percutaneous Approach (ICD-10-PCS; 2017-03-29)
PROC: 067F3ZZ Dilation of Right External Iliac Vein, Percutaneous Approach (ICD-10-PCS; 2017-03-29)
PROC: 06703ZZ Dilation of Inferior Vena Cava, Percutaneous Approach (ICD-10-PCS; 2017-03-29)
PROC: 067M3ZZ Dilation of Right Femoral Vein, Percutaneous Approach (ICD-10-PCS; 2017-03-29)
PROC: 06CM3ZZ Extirpation of Matter from Right Femoral Vein, Percutaneous Approach (ICD-10-PCS; principal; 2017-03-29 12:00)
PROC: 06C03ZZ Extirpation of Matter from Inferior Vena Cava, Percutaneous Approach (ICD-10-PCS; 2017-03-29 12:00)
DX: T81.72XA Complication of vein following a procedure, not elsewhere classified, initial encounter (principal); I82.401 Acute embolism and thrombosis of unspecified deep veins of right lower extremity; I26.99 Other pulmonary embolism without acute cor pulmonale; G20 Parkinson's disease; I10 Essential (primary) hypertension; L40.9 Psoriasis, unspecified; R00.1 Bradycardia, unspecified; Y83.8 Other surgical procedures as the cause of abnormal reaction of the patient, or of later complication, without mention of misadventure at the time of the procedure; Y92.89 Other specified places as the place of occurrence of the external cause; Z98.890 Other specified postprocedural states
CPT/HCPCS: 37211; 37248; 71275; 75825; 75940; 80048; 80053; 81001; 81240; 83890; 85025; 85240; 85300; 85302; 85305; 85610; 85613; 85730; 86147; 87081; 93306; C1714; C1725; C1769; C1880; C1894; J1200; J1644; J2250; J2405; J2930; J2997; J3010; J7042; Q9967

== ENCOUNTER → 2017-03-24 | Outpatient (CLI) | payer MEDICARE, BC ==
[~2017-03-24] MED LIST changes: +ALBU18HF INHALATION; +AMLO2.5T78 PO; +APIX2.5T PO; +APIX5TAB PO; -CARB1TAB46 PO; -DOCU-159 PO; -OMEG1CAP73 PO; +OXYC-209 PO; -PRAM0.755 PO; +PRAM1.5T8 PO; -SUCCINYLCHOLINE CHLORIDE 100 MG/5 ML SYG IV ONE; -[UNRECOGNIZED DRUG - CODE] PO
--- NOTE | 2017-03-24 15:34 | RADRPT ---
PROCEDURE: US Lower extremity Venous. CLINICAL INDICATION: Right leg edema TECHNIQUE: Multiple sonographic images of the right lower extremity deep venous system was obtaine d utilizing grayscale, color-flow, compressive sonography and doppler imaging with augmentation. Th e images were reviewed on a PACS workstation. COMPARISON: None. FINDINGS: There is no compressibility or flow within the right common femoral, femoral and popliteal veins. RPTAT: AA IMPRESSION: Extensive right leg DVT. A call report was made and the findings discussed with Saman Hicks at 03/24/2017 3:30:21 PM. The patient was instructed to return to the referring clinician's office. .Nato Oro MD, MD Date Time Electronically viewed and signed by .Nato Oro MD, on 03/24/2017 15:34 .S/
== END | disposition home or self-care (01) ==
LOC: VAS 14:13
PROVIDERS: ATTEND Family Medicine Adult Medicine
DX: M79.604 Pain in right leg (principal); M79.89 Other specified soft tissue disorders
CPT/HCPCS: 93971

== ENCOUNTER → 2017-05-30 | Outpatient (CLI) | payer MEDICARE, BC ==
[~2017-05-30] MED LIST changes: -ALBU18HF INHALATION; +AMLO2.5T78 PO; +APIX2.5T PO; +APIX5TAB PO; -OXYC-209 PO
--- NOTE | 2017-05-30 09:47 | RADRPT ---
PROCEDURE: US Lower extremity Venous. CLINICAL INDICATION: Right leg edema , follow-up DVT TECHNIQUE: Multiple sonographic images of the right lower extremity deep venous system was obtaine d utilizing grayscale, color-flow, compressive sonography and doppler imaging with augmentation. Th e images were reviewed on a PACS workstation. COMPARISON: 03/24/2017 FINDINGS: There is recanalization of the right common femoral vein and right proximal femoral vein. There is persistent thrombosis of the right mid and distal femoral vein as well as right popliteal v ein. The right posterior tibial and peroneal veins are patent. The right great saphenous vein is patent. RPTAT: AA IMPRESSION: Partial recanalization of the right leg with persistent DVT in the right mid and distal femoral vein as well as right popliteal vein. .Nato Oro MD, Date Time Electronically viewed and signed by .Nato Oro MD, on 05/30/2017 09:47 .S/
== END | disposition home or self-care (01) ==
LOC: VAS 08:38
PROVIDERS: ATTEND Family Medicine Adult Medicine
DX: I82.4Z1 Acute embolism and thrombosis of unspecified deep veins of right distal lower extremity (principal)
CPT/HCPCS: 93971

== ENCOUNTER → 2017-08-03 | Outpatient (CLI) | payer MEDICARE, BC ==
[2017-08-03 13:00] LABS: CREATININE 1.01 mg/dl (0.61-1.24)
== END | disposition home or self-care (01) ==
LOC: LAB 11:35
PROVIDERS: ATTEND Orthopaedic Surgery
DX: M51.26 Other intervertebral disc displacement, lumbar region (principal)
CPT/HCPCS: 82565; 84520

== ENCOUNTER 2018-05-14 09:24 | Emergency (ER) | END 2018-05-14 13:50 | disposition home or self-care (01) ==